=== PATIENT | female | born 1995 | race Caucasian/White ===

== ENCOUNTER 2018-03-10 20:21 | Emergency (ER) | payer MEDICAID, SELFPAY ==
[2018-03-10 20:22] VITALS: BP 95/51; PULSE 110; RESP 16; TEMP 36.7; O2SAT 97; BMI 18.1
[2018-03-10 22:13] LABS: Mucous, Urine 0 SEEN /hpf (<or=2+)
[2018-03-10 22:14] LABS: Color, Urine Yellow (Yellow); Glucose, Dipstick Normal (Normal); Ketone-Dipstick Negative (Negative); Leukocyte Esterase-Dipstick 500 /ul (Negative); Nitrite-Dipstick Positive (Negative); Occult Blood-Urine 25 /ul (Negative); Protein-Dipstick 30 mg/dl (Negative); Specific Gravity, Urine 1.015 (1.002-1.030); Urine Bilirubin Dipstick Negative (Negative); Urine Clarity Cloudy (Clear); Urine Urobilinogen 1 mg/dl (Normal)
[2018-03-10 22:25] LABS: Bacteria RARE /hpf (None Seen); Red Blood Cells-Urine 0-5 SEEN /hpf (0-5); Squamous Epithelial Cells - UA 5-10 SEEN /hpf (5-10); White Blood Cells 50-100 SEEN /hpf (0-5)
--- NOTE | 2018-03-10 22:52 | ED.VISSUMM ---
- ER Visit Summary Date of Service: 03/10/18 Chief Complaint: Flank pain History of Present Illness: The patient is a 22 F presents to the emergency department with symptoms of pyelonephritis. The patient is currently . She is at 18 weeks. She states over the past 2 days, she is intermittent pain in her right flank. She states when she gets kidney infections, she rarely has urinary symptoms, just will get pain in her kidney. She is no history of kidney stone. She denies any vaginal bleeding or discharge. She denies any recent sexual activity. She has had an uncomplicated thus far. Physical Examination: Vital signs reviewed General: Well-nourished, well-developed Head: Normocephalic, atraumatic Eyes: Pupils equal and reactive, extraocular muscles intact Neck, supple, no lymphadenopathy Heart: Regular rate and rhythm Respiratory: No distress, clear bilaterally Abdomen: Soft, nontender, nondistended, no peritoneal signs Back: Nontender Extremities: Nontender, no edema, no cords Skin: Normal color no rash Neuro: Alert and oriented, no focal or lateralizing deficits Test Results: [] Emergency Department Course and Treatment: The patient has no CVA tenderness. However, her urine does show evidence of infection. Culture was added. I did do a bedside ultrasound. There is single intrauterine . There is good activity. heart rate was in the 150s and reactive. There was no evidence of hydronephrosis on the right kidney. Patient has no fever. Her abdomen is benign. She has no reproducible tenderness. I do feel that she is safe for outpatient therapy. Given her , she will be started on Keflex. She is given her first dose here. I did add a urine culture. She will be discharged. I did risk reduction counselor her that if she gets fever, worsening pain, vomiting, or any change in symptoms she needs to return immediately. She is comfortable with this plan of care. Treatment Plan: [] Disposition: Discharge Impression: Pyelonephritis This note was generated with [employer] dictation software. It may contain incorrect words, spelling, and punctuation that were not noted in review of the chart prior to signing ED Disposition - Plan for ED Patient: Chief Complaint: Flank Pain Instructions: ED Kidney Infec Female Prescriptions: Cephalexin [Keflex] 500 mg PO Q8 #30 cap
[2018-03-10] MEDS: Cephalexin 250 MG Capsule 500 MG PO (23:23)
[2018-03-10 23:25] VITALS: BP 121/68; PULSE 67; RESP 18; O2SAT 99
== END 2018-03-10 23:26 | disposition home or self-care (01) ==
PROVIDERS: Emergency Provider Emergency Medicine
DX: O23.02 Infections of kidney in pregnancy, second trimester (principal); Z3A.18 18 weeks gestation of pregnancy
CPT/HCPCS: 81001; 87077; 87086; 87088; 87186; 99283

== ENCOUNTER 2018-04-01 02:30 | Observation (INO) | payer MEDICAID, SELFPAY ==
[2018-04-01] VITALS (8 sets, daily range): BP systolic 111–120; BP diastolic 58–75; PULSE 106–128; RESP 16–20; TEMP 36.8–37.3; O2SAT 98–100; BMI 18.8; BMI 18.3; BMI 18.4
--- NOTE | 2018-04-01 02:49 | ED.VIS.GEN ---
History of Present Illness Chief Complaint: Flank Pain Informant: Patient Onset: Days - 2 Context: Sudden Onset Timing: Intermittent - now persistent and colicky x 4 hrs or so Quality: achy Location: right low back Current Severity: Moderate Maximum Severity: Moderate Worsened by: deep breath Relieved by: nothing Associated Symptoms: n/v. subj fevers earlier. no abd pain. no vaginal sx or bleeding. Narrative: Similar symptoms to prior bouts of pyelonephritis. This includes lack of any urinary symptoms. She currently is 21 weeks and has had an uncomplicated so far. Recently was here and treated as an outpatient for pyelonephritis, she finished the 10 day course of cephalexin 1-2 weeks ago, followed up with her OB less than 1 week ago at [facility], and advised that they will be watching her very closely and possibly placing her on daily antibiotics until her delivery, although she is not on any more yet. Past Medical History - Allergies and Home Meds Allergies/Adverse Reactions: Allergies No Known Allergies Allergy (Verified 04/01/18 02:33) Smoking Status: Current every day smoker Review of Systems All systems negative except as indicated General: Reports: Fever, Malaise, Subjective Cardiovascular: Denies: Chest pain Respiratory: Denies: Dyspnea, Cough Gastrointestinal: Reports: Nausea, Vomiting. Denies: Abdominal pain, Diarrhea, Melena, Hematochezia Genitourinary: Denies: Dysuria, Hematuria, Frequency Musculoskeletal: Reports: Back pain. Denies: Neck pain, Swelling, Extremity Pain Skin: Denies: Rash Physical Exam Vital Signs/Narrative: Vital Signs Temp Pulse Resp BP Pulse Ox 04/01/18 02:30 98.6 F 128 H 20 H 120/75 98 Inital Vital Signs reviewed: Yes General: Well nourished, Well developed Head: Normocephalic, Atraumatic Eyes: Perrl, EOMI ENT: Moist mucous membranes, No rhinorrhea Neck: Supple, Nontender Cardiovascular: Regular rate, Regular rhythm, No murmurs, Tachycardia Respiratory: No distress, CTA bilaterally, Chest nontender Abdomen: Soft, Nontender, Normal bowel sounds, - - gravid uterus just above umbilicus Back: Normal Inspection, CVA tenderness - right only Extremities: Nontender, No edema Skin: Normal color, No rash Neurological: Alert, Oriented x3, Cranial nerves II-XII grossly intact, Normal Strength, Normal Sensation, Normal Gait Psychological: Normal affect Diagnostic/Tx/Re-eval Laboratory Results 04/01/18 04/01/18 04/01/18 Range/Units 02:36 02:36 03:04 WBC 12.9 H (4.4-11.0) K/mm3 RBC 3.62 L (4.2-5.4) M/mm3 Hgb 11.8 L (12.0-15.0) g/dl Hct 34.2 L (37-47) % MCV 94.5 (81-99) fL MCH 32.6 H (27.0-32.0) pg MCHC 34.5 (32-36) g/gl RDW 12.5 (11.6-14.6) % RDW Differential 41.8 (35.1-43.9) fl Plt Count 242 (150-450) K/mm3 MPV 9.7 (6.2-12.0) fl Immature Gran % (Auto) 0.400 (0.0-0.9) % Neut % (Auto) 81.3 H (47-70) % Lymph % (Auto) 12.4 L (19-41) % [place] % (Auto) 5.7 (0-10) % Eos % (Auto) 0.1 (0-5) % Baso % (Auto) 0.1 (0-1) % Absolute Neuts (auto) 10.5 H (2.0-7.7) X10^3/uL Absolute Lymphs (auto) 1.60 (0.83-4.51) X10^3/ul Total Counted Not Reportable Sodium 138 (136-145) mmol/L Potassium 3.6 (3.5-5.1) mmol/L Chloride 104 (98-107) mmol/L Carbon Dioxide 24.0 (21.0-32.0) mmol/L Anion Gap 10 (5-15) BUN 3 L (7-18) mg/dL Creatinine 0.48 L (0.55-1.02) mg/dL Estim Creat Clear Calc 147.27 ml/min Est GFR (MDRD) Af Amer 209 (>60) mL/min Est GFR (MDRD) Non-Af 172 (>60) mL/min BUN/Creatinine Ratio 6.2 L (10-20) RATIO Glucose 104 (74-106) mg/dL Calcium 9.3 (8.5-10.1) mg/dL Urine Color Yellow (Yellow) Urine Clarity Cloudy (Clear) Urine pH 6.5 (5.0 - 8.0) Ur Specific [place] 1.015 (1.002-1.030) Urine Protein 100 H (Negative) mg/dl Urine Glucose (UA) Normal (Normal) mg/dl Urine Ketones Negative (Negative) mg/dl Urine Occult Blood 50 H (Negative) /ul Urine Nitrite Positive H (Negative) Urine Bilirubin Negative (Negative) mg/dL Urine Urobilinogen Normal (Normal) mg/dl Ur Leukocyte Esterase 500 H (Negative) /ul - Medical Decision Making Patient was given morphine 2 mg and felt better, remained stable. I performed a bedside ultrasound since in the middle of the night, there is no target aircraft technician available in the hospital. There is good movement and heart tones were in the 160s. There appeared to be some mild to moderate hydronephrosis on the right when compared with the normal-appearing kidney on the left. There is no fluid in Morison's pouch. Her urine does appear infected with leukocyte esterase, nitrite, and pyuria. This was sent for culture and she was started on Rocephin. She states that with her prior episodes of pyelonephritis, she had gradual onset of pain, although this was relatively sudden and severe. Not able to rule out the possibility of an obstructive uropathy, however she does not need CT or emergency official ultrasound at this time since her kidney function is good and normal, she is not septic, and has nothing that would require surgery at this time. Discussed with Dr. Vasquez who is agreeable with admission and request that we add gentamicin 5 mg/kg. ED Disposition - Plan for ED Patient: Disposition: Acute Care Hospital [facility] Chief Complaint: Flank Pain Diagnosis: Pyelonephritis affecting in second trimester
[2018-04-01 02:56] LABS: Absolute Neutrophil Count 10.5 X10^3/uL (2.0-7.7); Basophil# 0.01 X10^3/uL; Basophil% 0.1 % (0-1); Eosinophil# 0.01 X10^3/uL; Eosinophils% 0.1 % (0-5); Hematocrit 34.2 % (37-47); Hemoglobin 11.8 g/dl (12.0-15.0); Lymphocyte % 12.4 % (19-41); Mean Corp Hgb Conc 34.5 g/gl (32-36); Mean Corpuscular Hgb 32.6 pg (27.0-32.0); Mean Corpuscular Volume 94.5 fL (81-99); Mean Platelet Vol. 9.7 fl (6.2-12.0); Monocyte# 0.74 X10^3/uL; Monocyte% 5.7 % (0-10); Neutrophil # 10.48 X10^3/uL (2.7-7.7); Neutrophil % 81.3 % (47-70); Platelet Count 242 K/mm3 (150-450); RBC Distribution Width CV 12.5 % (11.6-14.6); RBC Distribution Width SD 41.8 fl (35.1-43.9); Red Blood Count 3.62 M/mm3 (4.2-5.4); White Blood Count 12.9 K/mm3 (4.4-11.0)
--- NOTE | 2018-04-01 02:56 | ED.DCSUM_ITS ---
History of Present Illness Chief Complaint: Flank Pain Informant: Patient Onset: Days - 2 Context: Sudden Onset Timing: Intermittent - now persistent and colicky x 4 hrs or so Quality: achy Location: right low back Current Severity: Moderate Maximum Severity: Moderate Worsened by: deep breath Relieved by: nothing Associated Symptoms: n/v. subj fevers earlier. no abd pain. no vaginal sx or bleeding. Narrative: Similar symptoms to prior bouts of pyelonephritis. This includes lack of any urinary symptoms. She currently is 21 weeks and has had an uncomplicated so far. Recently was here and treated as an outpatient for pyelonephritis, she finished the 10 day course of cephalexin 1-2 weeks ago, followed up with her OB less than 1 week ago at [facility], and advised that they will be watching her very closely and possibly placing her on daily antibiotics until her delivery, although she is not on any more yet. Past Medical History - Allergies and Home Meds Allergies/Adverse Reactions: Allergies No Known Allergies Allergy (Verified 04/01/18 02:33) Smoking Status: Current every day smoker Review of Systems All systems negative except as indicated General: Reports: Fever, Malaise, Subjective Cardiovascular: Denies: Chest pain Respiratory: Denies: Dyspnea, Cough Gastrointestinal: Reports: Nausea, Vomiting. Denies: Abdominal pain, Diarrhea, Melena, Hematochezia Genitourinary: Denies: Dysuria, Hematuria, Frequency Musculoskeletal: Reports: Back pain. Denies: Neck pain, Swelling, Extremity Pain Skin: Denies: Rash Physical Exam Vital Signs/Narrative: Vital Signs Temp Pulse Resp BP Pulse Ox 04/01/18 02:30 98.6 F 128 H 20 H 120/75 98 Inital Vital Signs reviewed: Yes General: Well nourished, Well developed Head: Normocephalic, Atraumatic Eyes: Perrl, EOMI ENT: Moist mucous membranes, No rhinorrhea Neck: Supple, Nontender Cardiovascular: Regular rate, Regular rhythm, No murmurs, Tachycardia Respiratory: No distress, CTA bilaterally, Chest nontender Abdomen: Soft, Nontender, Normal bowel sounds, - - gravid uterus just above umbilicus Back: Normal Inspection, CVA tenderness - right only Extremities: Nontender, No edema Skin: Normal color, No rash Neurological: Alert, Oriented x3, Cranial nerves II-XII grossly intact, Normal Strength, Normal Sensation, Normal Gait Psychological: Normal affect Diagnostic/Tx/Re-eval Laboratory Results 04/01/18 04/01/18 04/01/18 Range/Units 02:36 02:36 03:04 WBC 12.9 H (4.4-11.0) K/mm3 RBC 3.62 L (4.2-5.4) M/mm3 Hgb 11.8 L (12.0-15.0) g/dl Hct 34.2 L (37-47) % MCV 94.5 (81-99) fL MCH 32.6 H (27.0-32.0) pg MCHC 34.5 (32-36) g/gl RDW 12.5 (11.6-14.6) % RDW Differential 41.8 (35.1-43.9) fl Plt Count 242 (150-450) K/mm3 MPV 9.7 (6.2-12.0) fl Immature Gran % (Auto) 0.400 (0.0-0.9) % Neut % (Auto) 81.3 H (47-70) % Lymph % (Auto) 12.4 L (19-41) % [place] % (Auto) 5.7 (0-10) % Eos % (Auto) 0.1 (0-5) % Baso % (Auto) 0.1 (0-1) % Absolute Neuts (auto) 10.5 H (2.0-7.7) X10^3/uL Absolute Lymphs (auto) 1.60 (0.83-4.51) X10^3/ul Total Counted Not Reportable Sodium 138 (136-145) mmol/L Potassium 3.6 (3.5-5.1) mmol/L Chloride 104 (98-107) mmol/L Carbon Dioxide 24.0 (21.0-32.0) mmol/L Anion Gap 10 (5-15) BUN 3 L (7-18) mg/dL Creatinine 0.48 L (0.55-1.02) mg/dL Estim Creat Clear Calc 147.27 ml/min Est GFR (MDRD) Af Amer 209 (>60) mL/min Est GFR (MDRD) Non-Af 172 (>60) mL/min BUN/Creatinine Ratio 6.2 L (10-20) RATIO Glucose 104 (74-106) mg/dL Calcium 9.3 (8.5-10.1) mg/dL Urine Color Yellow (Yellow) Urine Clarity Cloudy (Clear) Urine pH 6.5 (5.0 - 8.0) Ur Specific [place] 1.015 (1.002-1.030) Urine Protein 100 H (Negative) mg/dl Urine Glucose (UA) Normal (Normal) mg/dl Urine Ketones Negative (Negative) mg/dl Urine Occult Blood 50 H (Negative) /ul Urine Nitrite Positive H (Negative) Urine Bilirubin Negative (Negative) mg/dL Urine Urobilinogen Normal (Normal) mg/dl Ur Leukocyte Esterase 500 H (Negative) /ul - Medical Decision Making Patient was given morphine 2 mg and felt better, remained stable. I performed a bedside ultrasound since in the middle of the night, there is no ink technician available in the hospital. There is good movement and heart tones were in the 160s. There appeared to be some mild to moderate hydronephrosis on the right when compared with the normal-appearing kidney on the left. There is no fluid in Morison's pouch. Her urine does appear infected with leukocyte esterase, nitrite, and pyuria. This was sent for culture and she was started on Rocephin. She states that with her prior episodes of pyelonephritis, she had gradual onset of pain, although this was relatively sudden and severe. Not able to rule out the possibility of an obstructive uropathy, however she does not need CT or emergency official ultrasound at this time since her kidney function is good and normal, she is not septic, and has nothing that would require surgery at this time. Discussed with Dr. Vasquez who is agreeable with admission and request that we add gentamicin 5 mg/kg. ED Disposition - Plan for ED Patient: Disposition: Acute Care Hospital [facility] Chief Complaint: Flank Pain Diagnosis: Pyelonephritis affecting in second trimester
[2018-04-01] MEDS: Morphine 2 MG/ML Syringe IV (03:00)
[2018-04-01 03:07] LABS: Mucous, Urine 0 SEEN /hpf (<or=2+)
[2018-04-01 03:11] LABS: POSITIVE COUNT NO; POSITIVE DIFFERENTIAL NO; POSITIVE MORPHOLOGY NO
[2018-04-01 03:13] LABS: Color, Urine Yellow (Yellow); Glucose, Dipstick Normal (Normal); Ketone-Dipstick Negative (Negative); Leukocyte Esterase-Dipstick 500 /ul (Negative); Nitrite-Dipstick Positive (Negative); Occult Blood-Urine 50 /ul (Negative); Protein-Dipstick 100 mg/dl (Negative); Specific Gravity, Urine 1.015 (1.002-1.030); Urine Bilirubin Dipstick Negative (Negative); Urine Clarity Cloudy (Clear); Urine Urobilinogen Normal (Normal); Urine pH 6.5 (5.0 - 8.0)
[2018-04-01 03:13] LABS: Anion Gap 10 (5-15); BUN 3 mg/dL (7-18); BUN/Creat Ratio 6.2 RATIO (10-20); Calcium,Total 9.3 mg/dL (8.5-10.1); Chloride 104 mmol/L (98-107); Creatinine, Serum 0.48 mg/dL (0.55-1.02); EST Glomerular Filtration Rate 172 mL/min (>60); Est Glom Filt Rate - Afr Amer 209 mL/min (>60); Estimated Creatinine Clearance 147.27 ml/min; Glucose 104 mg/dL (74-106); Potassium 3.6 mmol/L (3.5-5.1); Sodium Level 138 mmol/L (136-145)
[2018-04-01 03:30] LABS: Bacteria 3+ /hpf (None Seen)
[2018-04-01 03:31] LABS: Red Blood Cells-Urine 0-5 SEEN /hpf (0-5); Squamous Epithelial Cells - UA 0-5 SEEN /hpf (5-10); White Blood Cells 50-100 SEEN /hpf (0-5)
[2018-04-01] MEDS: Ceftriaxone 1 GM/50 ML BAG IV (03:41)
--- NOTE | 2018-04-01 08:33 | PCM.HP.OB ---
History Date of Admission: 04/01/18 Gestational age: 21.2 History of this : Patient presented to ED with worsening right flank pain. Pain started 2 days & was intermittent at first Allergies No Known Allergies Allergy (Verified 04/01/18 02:33) Home Medications: Home Medications Cephalexin [Keflex] 500 mg PO Q8H 04/01/18 Vit No.130/Iron/FA [ Vitamins] 1 each PO DAILY 04/01/18 Smoking Status: Former smoker Alcohol: None Substance Use Type: Methamphetamine - in the past Heart Tracin's on US in the ED History Past Pregnancies: Past Pregnancies Delivery Date Name GA/Weeks Outcome Route Weight Infant Gender Labor Length Anesthesia Delivery Location Provider FOB Labs: pyelonephritis earlier in . positive ecoli urine culture. Review of Systems Constitutional: Reports: Chills - at home before admission, Fever Cardiovascular: Reports: - - negative Respiratory: Reports: Shortness of Breath - in ED last night, has now resolved Gastrointestinal: Reports: Nausea - has resolved Genitourinary: Reports: - - denies Gynecological: Reports: - - denies VB/LOF/ctxs Physical Exam Vitals: Vital Signs Temp Pulse Resp BP Pulse Ox 98.4 F 106 H 18 113/73 99 04/01/18 04:15 04/01/18 04:15 04/01/18 04:15 04/01/18 04:15 04/01/18 04:15 General: Alert, Oriented x3 Abdomen: Soft, Non Tender, Non-Distended, Gravid, - - positive right flank tenderness Extremities:: No tenderness/swelling Neurological: Cranial nerves II-XII grossly intact Assessment/Plan All Active Problems Pyelonephritis affecting in second trimester (Acute) 22yo female @ 21&2 with pyelonephritis Admit for observation. ID - Patient received gentamycin & rocephin. Prior urine culture sensitivities reviewed. Will need oral antibiotics the remained of . Patient had not started macrobid that was prescribed on Wednesday. GI - regular diet, nausea has resolved. FWB - fhts daily. Routine care.
[2018-04-01] MEDS: 0.9% Normal Saline 1,000 ML 75 ML IV ×2 (09:04→21:23)
[2018-04-01] MEDS: oxyCODONE 5 MG Tablet PO ×3 (09:32→22:24)
--- NOTE | 2018-04-01 10:52 | NURSING ---
FHT 165/MINUTE PER [facility] N[facility]SE KAYY CUEVAS.
[2018-04-01] MEDS: 0.9% NaCl Peripheral Flush Adult/Peds IV (14:44)
[2018-04-02] MEDS: Ceftriaxone 1 GM/50 ML BAG IV (01:16)
--- NOTE | 2018-04-02 02:48 | NURSING ---
FHR 130 at 0240.
[2018-04-02 04:21] VITALS: BP 95/56; PULSE 119; RESP 16; TEMP 37.5; O2SAT 98
[2018-04-02 04:27] VITALS: PULSE 118
[2018-04-02] MEDS: Acetaminophen 500 MG Tablet PO (04:34)
[2018-04-02] MEDS: oxyCODONE 5 MG Tablet PO (04:35)
--- NOTE | 2018-04-02 06:43 | DCINST_ITS ---
- Discharge Diagnoses Current Active Problems: Current Active and Chronic Problems (Last Updated 04/01/18 @ 08:33 by Vince Vasquez) Pyelonephritis affecting in second trimester (Acute) You will use the following diet at home:: No restrictions Your food should be the consistency of: Regular Your liquids should be the consistency of: Regular/Thin Discharge Activity: Return to Normal Activity Return to work on:: 04/04/18 May shower in (days): 0 May resume sexual activity in: No Restrictions Call your doctor if you observe: Fever of 101 or Higher, Inability to urinate, Uncontrolled pain Additional Instructions: Call if any vaginal bleeding or leaking of fluid or more than 6 contractions in an hour. Allergies/Adverse Reactions: Allergies No Known Allergies Allergy (Verified 04/01/18 02:33) Medications to take at Discharge Cephalexin [Keflex] 500 mg PO Q8H 04/01/18 Vit No.130/Iron/FA [ Tablet] 1 each PO DAILY 04/01/18 Primary Care Physician: Care Physician,No Primary [Primary Care Provider] - Test Results: Test results from this visit will be discussed in further detail at your follow- up appointment, if applicable. Please Follow Up With: Lay Cooper MD - [phone] When: Dr. Cooper's office in 1-2 weeks or as needed
[2018-04-02 07:02] VITALS: TEMP 36.4
[2018-04-02 08:01] LABS: Hematocrit 27.8 % (37-47); Hemoglobin 9.3 g/dl (12.0-15.0); Mean Corp Hgb Conc 33.5 g/gl (32-36); Mean Corpuscular Hgb 32.1 pg (27.0-32.0); Mean Corpuscular Volume 95.9 fL (81-99); Mean Platelet Vol. 9.5 fl (6.2-12.0); Platelet Count 187 K/mm3 (150-450); RBC Distribution Width CV 12.5 % (11.6-14.6); RBC Distribution Width SD 42.3 fl (35.1-43.9); White Blood Count 9.3 K/mm3 (4.4-11.0)
[2018-04-02 08:04] LABS: Scan Indicated on CBC? Y/N NO
[2018-04-02 09:40] VITALS: BP 93/53; PULSE 86; RESP 18; TEMP 36.8; O2SAT 98
--- NOTE | 2018-04-02 11:07 | PCM.PN.OB ---
Patient Problems: Active and Suspected Problems (Last Updated 04/01/18 @ 08:33 by Vince Vasquez) Pyelonephritis affecting in second trimester (Acute) Subjective: Doing well per patient and nursing staff. Ambulating and taking PO without difficulty. Pain resolved and no difficulty with urination. Denies any further nausea. Feeling movement. Planning D/C home today. Objective: FHT 140 via doppler - Physical Exam General: Alert, Oriented x3, Cooperative Lungs: Clear to auscultation, Normal air movement, No rhonchi, No wheeze Cardiovascular: Regular rate, Regular Rhythm, No murmurs Abdomen: Bowel Sounds Present, Soft, Non Tender, - - CVAT Extremities: No edema Psych/Mental Status: Normal Affect, Appropriate Vital Signs Temp Pulse Resp BP Pulse Ox 98.2 F 86 18 93/53 L 98 04/02/18 09:40 04/02/18 09:40 04/02/18 09:40 04/02/18 09:40 04/02/18 09:40 Oxygen Delivery Method Room Air Weight: 106 lb 14.787 oz Body Mass Index (BMI) 18.3 Intake and Output for Last 24 Hours 03/31/18 04/01/18 04/02/18 23:59 23:59 23:59 Intake Total 2966 / 2966 1620 / 1620 Output Total 1200 / 1200 1999 / 1999 Balance 1766 / 1766 -380 / -380 Laboratory Tests Past 24 Hrs 04/02/18 07:40 WBC 9.3 RBC 2.90 L Hgb 9.3 L Hct 27.8 L MCV 95.9 MCH 32.1 H MCHC 33.5 RDW 12.5 RDW Differential 42.3 Plt Count 187 MPV 9.5 Medical Necessity - Tobacco Use Smoking Status: Former smoker Assessment/Plan All Active Problems (Last Updated 04/01/18 @ 08:33 by Vince Vasquez) Pyelonephritis affecting in second trimester (Acute) A: Acute pyelonephritis affecting 23 year old at 20w2d EGA P: 1) D/C home today. 2) eRx sent to pharmacy for Keflex 500mg PO QID x 14 days. Will see patient outpatient for follow up visit in 2 weeks and start prophylactic antibiotics at that time. 3) Hemoglobin 9.3 down from 11.2. Will start Ferrous Sulfate 325mg PO once daily and increase to BID if tolerated. 4) Follow up in 1-2 weeks.
--- NOTE | 2018-04-02 11:19 | NURSING ---
FHR obtained in mid/right lower quadrant at 140 bpm. Angelo MEDEIROSM on unit and made aware of fhr.
== END 2018-04-02 12:22 | disposition home or self-care (01) ==
LOC: ED 03:32 → MS3 03:54
PROVIDERS: Obstetrics & Gynecology; Admitting Provider Obstetrics & Gynecology; Emergency Provider Emergency Medicine; Visit Provider Obstetrics & Gynecology
DX: O23.02 Infections of kidney in pregnancy, second trimester (principal); Z3A.21 21 weeks gestation of pregnancy; Z87.891 Personal history of nicotine dependence; N10 Acute pyelonephritis
CPT/HCPCS: 80048; 81001; 85025; 85027; 87077; 87086; 87088; 87186; 96361; 96365; 96366; 96367; 96375; 99218; 99282; 99406; J7030; A4216; G0378

== ENCOUNTER 2018-07-18 14:50 | Outpatient (CLI) | payer MEDICAID, SELFPAY ==
[2018-07-18 15:16] VITALS: BMI 25.3
--- NOTE | 2018-08-03 16:31 | OB.TRI.NOTE ---
- Problem List (1) Cramping affecting , antepartum Status: Acute History of Present Illness Date of Service: 07/18/18 Was patient seen by the physician?: No Reason For Visit: R/O LABOR Date of Service: 07/18/18 History of Present Illness: at 36w5d and presents to L&D for cramping. Allergies No Known Allergies Allergy (Verified 04/01/18 02:33) - Pertinent Past Medical History Medical History: Past Medical History (Last Updated 04/01/18 @ 08:33 by Vince Vasquez) Pyelonephritis affecting NST - FHR Rate Baby A Baseline: 145 Variability:: Moderate Accelerations:: 15 x 15 Decelerations:: None NST Reactive:: Yes Uterine Activity:: Irregular Impression/Plan A:False Labor P: 1).D/C Home
== END 2018-07-18 16:25 | disposition home or self-care (01) ==
LOC: WPOUT 14:57 → WP 14:58
PROVIDERS: Referring Provider Advanced Practice Midwife; Visit Provider Advanced Practice Midwife
DX: O47.03 False labor before 37 completed weeks of gestation, third trimester (principal); Z3A.36 36 weeks gestation of pregnancy
CPT/HCPCS: 59025; 59050; 99218; G0378

== ENCOUNTER 2018-08-04 02:35 | Outpatient (CLI) | payer MEDICAID, SELFPAY ==
[2018-08-04 03:55] LABS: Mucous, Urine 0 SEEN /hpf (<or=2+); Red Blood Cells-Urine 0 SEEN /hpf (0-5)
[2018-08-04 04:00] LABS: Absolute Lymphocyte Count 2.05 X10^3/ul (0.83-4.51); Absolute Neutrophil Count 5.2 X10^3/uL (2.0-7.7); Color, Urine Yellow (Yellow); Eosinophil# 0.02 X10^3/uL; Eosinophils% 0.3 % (0-5); Glucose, Dipstick Normal (Normal); Hematocrit 37.6 % (37-47); Hemoglobin 12.5 g/dl (12.0-15.0); Ketone-Dipstick 50 mg/dl (Negative); Leukocyte Esterase-Dipstick 25 /ul (Negative); Lymphocyte # 2.05 X10^3/ul (4.0); Lymphocyte % 26.2 % (19-41); Mean Corp Hgb Conc 33.2 g/gl (32-36); Mean Corpuscular Hgb 30.9 pg (27.0-32.0); Mean Corpuscular Volume 93.1 fL (81-99); Mean Platelet Vol. 9.6 fl (6.2-12.0); Monocyte% 6.4 % (0-10); Neutrophil # 5.23 X10^3/uL (2.7-7.7); Neutrophil % 66.7 % (47-70); Nitrite-Dipstick Negative (Negative); Occult Blood-Urine Negative /ul (Negative); Platelet Count 216 K/mm3 (150-450); Protein-Dipstick 15 mg/dl (Negative); RBC Distribution Width CV 13.5 % (11.6-14.6); RBC Distribution Width SD 45.7 fl (35.1-43.9); Red Blood Count 4.04 M/mm3 (4.2-5.4); Specific Gravity, Urine 1.015 (1.002-1.030); Urine Bilirubin Dipstick Negative (Negative); Urine Clarity Clear (Clear); Urine Urobilinogen Normal (Normal); White Blood Count 7.8 K/mm3 (4.4-11.0)
[2018-08-04 04:01] LABS: POSITIVE COUNT NO; POSITIVE DIFFERENTIAL NO; POSITIVE MORPHOLOGY NO
[2018-08-04 04:05] VITALS: BMI 25.8
[2018-08-04 04:10] LABS: Bacteria 1+ /hpf (None Seen); Squamous Epithelial Cells - UA 0-5 SEEN /hpf (5-10); White Blood Cells 0-5 SEEN /hpf (0-5)
[2018-08-04 04:24] LABS: Amphetamine Urine VISTA NEGATIVE (<1000 ng/mL); Barbiturate Urine VISTA NEGATIVE (< 200 ng/mL); Benzodiazepine Urine VISTA NEGATIVE (< 200 ng/mL); Cocaine Urine VISTA NEGATIVE (< 300 ng/mL); Ecstacy Urine VISTA NEGATIVE (< 500 ng/mL); Methadone Urine VISTA NEGATIVE (< 300 ng/mL); PCP Urine VISTA NEGATIVE (< 25 ng/mL); THC Urine VISTA NEGATIVE (< 50 ng/mL); Vista UDS pH Range 6
--- NOTE | 2018-08-05 09:03 | PCM.PN.OB ---
- Physical Exam Weight: 146 lb Body Mass Index (BMI) 25.8 Medical Necessity - Tobacco Use Smoking Status: Former smoker Assessment/Plan All Active Problems (Last Updated 04/01/18 @ 08:33 by Vince Vasquez) Pyelonephritis affecting in second trimester (Acute) Cramping affecting , antepartum (Acute)
--- NOTE | 2018-08-05 09:11 | OB.TRI.HP_ITS ---
History of Present Illness Date of Service: 08/04/18 Was patient seen by the physician?: No Reason For Visit: R/O LABOR Date of Service: 08/04/18 Final SAUL: 08/10/18 Gestational age: 39 Weeks and 2 Days History of Present Illness: Presented to L&D with complaint of contractions that started in the evening. Denies any urinary complaints. Having back pain and lower abdominal pain. Denies any vaginal bleeding, leakage of fluid, headache, or SOB. Allergies No Known Allergies Allergy (Verified 08/04/18 04:06) - Pertinent Past Medical History Medical History: Past Medical History (Last Updated 04/01/18 @ 08:33 by Vince Vasquez) Pyelonephritis affecting Laboratory Studies: Laboratory Tests 08/04/18 08/04/18 08/04/18 Range/Units 03:45 03:45 03:45 WBC 7.8 (4.4-11.0) K/mm3 RBC 4.04 L (4.2-5.4) M/mm3 Hgb 12.5 (12.0-15.0) g/dl Hct 37.6 (37-47) % MCV 93.1 (81-99) fL MCH 30.9 (27.0-32.0) pg MCHC 33.2 (32-36) g/gl RDW 13.5 (11.6-14.6) % RDW Differential 45.7 H (35.1-43.9) fl Plt Count 216 (150-450) K/mm3 MPV 9.6 (6.2-12.0) fl Immature Gran % (Auto) 0.400 (0.0-0.9) % Neut % (Auto) 66.7 (47-70) % Lymph % (Auto) 26.2 (19-41) % [place] % (Auto) 6.4 (0-10) % Eos % (Auto) 0.3 (0-5) % Baso % (Auto) 0.0 (0-1) % Absolute Neuts (auto) 5.2 (2.0-7.7) X10^3/uL Absolute Lymphs (auto) 2.05 (0.83-4.51) X10^3/ul Total Counted Not Reportable Urine Color Yellow (Yellow) Urine Clarity Clear (Clear) Urine pH 6.0 (5.0 - 8.0) Ur Specific [place] 1.015 (1.002-1.030) Urine Protein 15 H (Negative) mg/dl Urine Glucose (UA) Normal (Normal) mg/dl Urine Ketones 50 H (Negative) mg/dl Urine Occult Blood Negative (Negative) /ul Urine Nitrite Negative (Negative) Urine Bilirubin Negative (Negative) mg/dL Urine Urobilinogen Normal (Normal) mg/dl Ur Leukocyte Esterase 25 H (Negative) /ul Urine RBC 0 SEEN (0-5) /hpf Urine WBC 0-5 SEEN (0-5) /hpf Ur Squamous Epith Cells 0-5 SEEN (5-10) /hpf Urine Bacteria 1+ (None Seen) /hpf Urine Mucus 0 SEEN (<or=2+) /hpf Urine Opiates Screen NEGATIVE (< 300 ng/mL) Urine Methadone Screen NEGATIVE (< 300 ng/mL) Ur Barbiturates Screen NEGATIVE (< 200 ng/mL) Ur Phencyclidine Scrn NEGATIVE (< 25 ng/mL) Ur Amphetamines Screen NEGATIVE (<1000 ng/mL) U Methamphetamin-MDMA NEGATIVE (< 500 ng/mL) U Benzodiazepines Scrn NEGATIVE (< 200 ng/mL) Urine Cocaine Screen NEGATIVE (< 300 ng/mL) U Cannabinoids Screen NEGATIVE (< 50 ng/mL) Ur Drug Screen Comment NST - FHR Rate Baby A Baseline: 150 Variability:: Moderate Accelerations:: 15 x 15 Decelerations:: None NST Reactive:: Yes Uterine Activity:: Irregular Impression/Plan A: False Labor P: 1) consulted to review strip due to prolonged accelerations, ok to D/C home 2) Urine culture and tox screen done 3) CBC normal 4) 1 liter LR give 5) D/C home.
--- OUTSIDE RECORDS SUMMARY | 2018-09-29 05:24 | XMS RPT_ITS ---
:1995 Author Organization OHIP Care Team Providers Name Role Phone OLIVA NORTON (NIRAV) Attending Unavailable OLIVA NORTON (NIRAV) Attending Unavailable UMM VERONICA Attending Unavailable OLIVA NORTON (NIRAV) Referring Unavailable OLIVA NORTON (CNM) Referring Unavailable KAYLA DUDLEY (CNM) Attending Unavailable OLIVA NORTON (CNM) Referring Unavailable NECHELSEYT LUCIANO, SOL Attending Unavailable OLIVA NORTON (CNM) Referring Unavailable UMM VERONICA Attending Unavailable OLIVA NORTON (CNM) Referring Unavailable NEYMELISSAT WOLF, SOL Attending Unavailable KAYLA DUDLEY (CNM) Attending Unavailable REMI DUDLEYTHIA (CNM) Referring Unavailable OLIVA NORTON (CNM) Attending Unavailable NEYMELISSAT WOLF, SOL Attending Unavailable TRACI FUENTES Attending Unavailable NEYMELISSAT WOLF, SOL Attending Unavailable TRACI FUENTES Attending Unavailable LUIS ENRIQUEKAYLA HAQUE (CNM) Attending Unavailable LUIS ENRIQUE, KAYLA (CNM) Attending Unavailable LUIS ENRIQUEREMI HAQUETHIA (CNM) Referring Unavailable Jeremy Henson Attending Unavailable Primay Care Physicia, No Primary Care Unavailable Primay Care Physicia, No Primary Care Unavailable Lola Fish Admitting Unavailable Lola Fish Attending Unavailable Oliva Norton Attending Unavailable Oliva Norton Referring Unavailable Primay Care Physicia, No Primary Care Unavailable Lianet Guzman Attending Unavailable Primay Care Physicia, No Primary Care Unavailable Lola Fish Attending Unavailable Lola Fish Referring Unavailable Primay Care Physicia, No Primary Care Unavailable Lola Fish Attending Unavailable Pedro Karelmer Referring Unavailable Primay Care Physicia, No Primary Care Unavailable Lola Fish Admitting Unavailable PROBLEMS PROBLEMS DATE TYPE CONDITION / CODE ATTENDING STATUS SOURCE 05/10/2018 Active 26 weeks gestation NA Active [facility] of / [facility] Z3A.26(ICD-10) Repository 01/04/2018 Active Drug abuse NA Active [facility] counseling and [facility] surveillance of Repository drug abuser / Z71.51(ICD-10) 01/04/2018 Active Supervision of NA Active [facility] high risk [facility] , Repository unspecified, first trimester / O09.91(ICD-10) 01/27/2018 Active 12 weeks gestation OLIVA NORTON Active [facility] of / ([facility]) [facility] Z3A.12(ICD-10) Repository 01/27/2018 Active Encounter for OLIVA NORTON Active [facility] supervision of ([facility]) [facility] other normal Repository , first trimester / Z34.81(ICD-10) PROCEDURES PROCEDURES No Procedure Records FoundRESULTS RESULTS PROGRESS Observed: 08/16/2018 Status: COMPLETED Source: [place] 3:16 PM [facility] [place] REPOSITORY HNO ID: [id number] Author: Leigh Wright LPN Service: (none) Author Type: (none) Type: Progress Notes Filed: 08/16/2018 3:17 PM Note Text: Pt delivered via at [facility] on 08/15/[address] Fish. See OB Outcome Note. Leigh Wright LPN DISCHARGE INSTRUCTION Observed: 08/16/2018 Status: F Source: [place] 7:57 AM [facility] [place] [facility] Medical Records Department [address] [place] [address] Instructions for Home/Discharge Instructions 08/16/18 0756 MR#: [id number] Acct: [id number] Name: KERON JACKSON Rep #: [id number] : 1995 22 From: Lola Fish PCP: Care Physician, No Primary Status: ADM IN Discharge Diet: No Restrictions Discharge Activity: May Drive, May Shower May resume sexual activity in: 4-6 weeks Weight Bearing Status: Weight bearing as tolerated Additional Instructions: If you experience any of the following, contact your healthcare provider. * Bleeding that soaks a pad every hour for 2 hours * Fever 100.4 or higher * Unrelieved incision or abdominal pain * Swelling, redness, discharge or bleeding from your incision or episiotomy site * Your incision begins to separate * Problems urinating (including inability to urinate or burning while urinating). * Visual changes * Severe headache * Flu-like symptoms * Pain or redness in one of both of your breasts * Pain, warmth, tenderness or swelling in your legs, especially the calf area * Frequent nausea and vomiting * Symptoms of depression or anxiety If you experience any of the following, call 911 or go to the nearest Emergency Room. * Chest pain * Problems breathing * Seizure activity * Partial or complete paralysis of a body part, slurred speech, weakness or drooping of the face, or a sudden inability to walk or hold your balance Allergies/Adverse Reactions: Allergies No Known Allergies Allergy (Verified 08/12/18 12:19) Medications to take at Discharge Vit No.130/Iron/Folic [ Tablet] 1 each PO DAILY 04/01/18 Primary Care Physician: Care Physician,No Primary [Primary Care Provider] - Test Results: Test results from this visit will be discussed in further detail at your follow-up appointment, if applicable. 08/16/18 0757 <Electronically signed by Lola Fish > Date Lola Fish CC: No Primary Care Physician HOSP Observed: 08/16/2018 Status: COMPLETED Source: [place] 12:00 AM [facility] REPOSITORY Patient Update (WOOB) KERON JACKSON ([id number]) 1995 F Date Time Provider Department 08/16/18 LOLA FISH During your visit today, we recorded the following information about you: Leigh Wright LPN 08/16/2018 3:17 PM Signed Pt delivered via at [facility] on 08/15/[address] Fish. See OB Outcome Note. Leigh Wright LPN Allergies As of Date: 08/16/2018 (No Known Allergies) Date Reviewed: 08/11/2018 Reviewed by: Kayla Dudley - Fully Assessed Prescriptions as of 08/16/2018 Sig: FERROUS SULFATE 325 MG (65 MG* Take 1 tablet by mouth once d* NITROFURANTOIN MONOHYDRATE AND * Take 1 capsule by mouth once * VIT 87-IRON CARB,ASP* Take 1 tablet by mouth once d* Problem List As Of Date 08/16/2018 Noted Resolved Quit smoking [Z87.891] INVALID FOR* More... History of methamphetamine abuse [Z87.898] INVALID FOR* More... Underweight [R63.6] INVALID FOR* More... Supervision of high risk in first tri*INVALID FOR* Drug abuse counseling and surveillance of drug *INVALID FOR* Counseling for family member of drug abuser [Z7*INVALID FOR* UTI (urinary tract infection) in , ant*INVALID FOR* More... Antepartum anemia complicating in sec*INVALID FOR* Encounter Status:Closed by LEIGH WRIGHT LPN on 08/16/18 OPERATIVE REPORT Observed: 08/15/2018 Status: F Source: [place] 2:08 AM [facility] [place] [facility] Medical Records Department [address] [place] [address] Operative Report 08/15/18 0037 MR#: [id number] Acct: [id number] Name: KERON JACKSON Rep #: [id number] : 1995 22 From: Lola Fish PCP: Care Physician, No Primary Status: ADM IN Location: [place] [address] Vaginal Delivery Maternal Presentation: Spontaneous Rupture of Membranes Amniotic Membrane Rupture Type: Spontaneous at home Amniotic Fluid Description: Clear Final SAUL: 08/10/18 Gestational age: 40 Weeks and 5 Days Date of Procedure: 08/15/18 Pre-Operative Diagnosis: SROM Post-Operative Diagnosis: SROM Surgery/ Procedure Performed: Spontaneous Vaginal Delivery Type of Anesthesia: Epidural Description of Procedure: Patient prepped AND draped when c/c/+3. She pushed to deliver head. head gently guided to allow delivery of anterior AND posterior shoulders. No excess traction placed on head. Body easily followed AND placed on maternal abdomen. 3VC clamped AND cut in delayed fashion. Placenta delivered with gentle traction and good uterine tone obtained. Presentation: SARA Placental Delivery Description: Expressed Placenta Disposition: [facility] Cord Vessel Description: 3 Vessels Cord Gases drawn per routine: ABG, VBG Cord Entanglement: Around neck x 1, loose Estimated Blood Loss: 300ml A gender: Male (1 minute): 8 (5 minute): 9 Episiotomy Description: None Laceration: 2nd degree Medications given after delivery: IV Pitocin Complications: None 08/15/18 0208 <Electronically signed by Lola Fish > Date Lola Fish CC: No Primary Care Physician; Lola Fish Signed HISTORY AND PHYSICAL Observed: 08/14/2018 Status: F Source: [place] EXAM 6:55 PM [facility] [place] [facility] Medical Records Department [address] [address] History and Physical 08/14/18 1849 MR#: [id number] Acct: [id number] Name: KERON JACKSON Rep #: [id number] : 1995 22 From: Lola Fish PCP: Care Physician, No Primary Status: ADM IN Y Location: [id number] History Date of Admission: 04/01/18 History of this : This is a 22 year-old, G [], P [], at 40 weeks gestational age. Medical History: Medical History (Last Updated 04/01/18 @ 08:33 by Lola Fish) Pyelonephritis affecting O23.00 Allergies No Known Allergies Allergy (Verified 08/12/18 12:19) Home Medications: Home Medications Vit No.130/Iron/Folic [ Tablet] 1 each PO DAILY 04/01/18 Ferrous Sulfate 325 mg PO BIDCM 07/18/18 Nitrofurantoin Monohyd/M-Cryst [Macrobid 100 mg Capsule] 100 mg PO DAILY 07/18/18 Smoking Status: Former smoker Substance Use Type: Methamphetamine Number of Fetus(es): 1 Heart Tracin's with moderate variability, accels, mild variables. Periods of indeterminite baseline TOCO Analysis: irregular History Past Pregnancies: Past Pregnancies Delivery Name GA[facility]Weeks [facility] FOB Date ght nder h a Location Labs: See [facility] H AND P Physical Exam General: Alert, Oriented x3 Abdomen: Soft, Non Tender, Non-Distended, Gravid Cervix Dilation (cm): 3 Station: -1 Effacement (%): 90 Assessment/Plan All Active Problems (Last Updated 04/01/18 @ 08:33 by Lola Fish) Pyelonephritis affecting in second trimester (Acute) Cramping affecting , antepartum (Acute) This is a 22 year-old, at 40 AND 4 weeks gestational age. Admit to L AND D SROM - start pitocin to induce labor GBS negative FWB - tachycardic but overall reassuring. EFM reviewed with nursing staff. FSE placed. Pain - epidural as desired EFW less than 4500g, adequate pelvis Routine care 08/14/18 3185 <Electronically signed by Lola Fish > Date Lola Fish Cosigner Signature: Date (if applicable) CC: No Primary Care Physician; Lola Fish Signed CBC-COMPLETE BLOOD CNT Collected: 08/14/2018 Status: F Source: [place] 3:50 PM [facility] [place] TYPE CODE TESTS RESULT OUT OF RANGE REFERENCE UNITS LAB L100.1000 4.4-11.0 K/mm3 Normal WBC 8.2 LAB L100.1200 4.2-5.4 M/mm3 Normal RBC 4.27 LAB L100.1300 12.0-15.0 g/dl Normal HGB 13.3 LAB L100.1400 37-47 % Normal HCT 39.8 LAB L100.1500 81-99 fL Normal MCV 93.2 LAB L100.1600 27.0-32.0 pg Normal MCH 31.1 LAB L100.1700 32-36 g/gl Normal MCHC 33.4 LAB L100.1810 11.6-14.6 % Normal RDW CV 13.1 LAB L100.1820 35.1-43.9 fl High RDW SD 44.2 LAB L100.1900 150-450 K/mm3 Normal PLT 184 LAB L100.2000 6.2-12.0 fl Normal MPV 10.0 Performed By: #### L100.0500 #### [facility] [address] [place], [address] TYPE AND SCREEN Collected: 08/14/2018 Status: F Source: [place] 3:50 PM [facility] [place] Order Comment: Reason for Type AND Screen/Red Cells: ROUTINE TYPE CODE TESTS RESULT OUT OF RANGE REFERENCE UNITS LAB B10.0800 O Normal BLOOD TYPE GEL POSITIVE LAB B100.4000 Normal Antibody NEGATIVE Screen Performed By: #### B101.7450 #### [facility] [address] [place], [place], [id number] URINE DRUG SCREEN Collected: 08/14/2018 Status: F Source: [place] (VISTA) 3:45 PM [facility] [place] TYPE CODE TESTS RESULT OUT OF RANGE REFERENCE UNITS LAB L505.0075 TO BE Normal CONFIRMED Result Comment: CONFIRMATORY TESTING FOR ALL POSITIVE URINE DRUG SCREEN RESULTS WILL ONLY BE SENT OUT UPON PHYSICIAN ORDER. VISTA Urine Drug Screen methods provide only preliminary analytical test results. A more specific alternate chemical method must be used in order to obtain a confirmed analytical result. Gas chromatography/mass spectrometery (GC/MS) is the preferred confirmatory method. Clinical consideration and professional judgement should be applied to any drug of abuse test result, particularly when preliminary positive results are used. URINE TCA TESTING MUST BE ORDERED SEPARATELY. USE TEST MNEMONIC: [facility] LAB L505.5005 VISTA UDS PH 7 Normal LAB L505.5015 <1000 ng/mL AMPHETAMINES Normal NEGATIVE LAB L505.5025 < 200 ng/mL BARBITIURATES Normal NEGATIVE LAB L505.5035 < 200 ng/mL BENZODIAZIPINE Normal NEGATIVE LAB L505.5045 < 300 ng/mL COCAINE Normal NEGATIVE LAB L505.5055 < 500 ng/mL ECSTACY Normal NEGATIVE LAB L505.5065 < 300 ng/mL METHADONE Normal NEGATIVE LAB L505.5075 < 300 ng/mL OPIATES Normal NEGATIVE LAB L505.5085 < 25 ng/mL PCP Normal NEGATIVE LAB L505.5095 < 50 ng/mL THC Normal NEGATIVE Performed By: #### L505.5000 #### [facility] [address] [place], [place], [id number] (ROM) RUPTURE OF Collected: 08/14/2018 Status: F Source: [place] 2:15 PM [facility] [place] TYPE CODE TESTS RESULT OUT OF REFERENCE UNITS RANGE LAB L205.1310 Negative High ROM POSITIVE Result Comment: Amniotic fluid present indicates rupture of Membranes. RESULTS CALLED TO OLIVA 08/14/18 1521 Awa Jeff. REPORT READ BACK BY SAME . Performed By: #### L205.1000 #### [facility] [address] [place], [place], [address] (ROM) RUPTURE OF Collected: 08/12/2018 Status: F Source: [facility] 12:15 PM [facility] [place] TYPE CODE TESTS RESULT OUT OF RANGE REFERENCE UNITS LAB L205.1310 Negative Normal ROM Negative Result Comment: Amniotic fluid not present indicates No Rupture of Membranes at time of specimen collection. Performed By: #### L205.1000 #### [facility] [address] [place], [place], [address] PROGRESS Observed: 08/11/2018 Status: COMPLETED Source: [place] 5:46 PM [facility] REPOSITORY HNO ID: [id number] Author: Kayla Dudley Service: (none) Author Type: Motor Vehicle Operator Road Supervisor Type: Progress Notes Filed: 08/11/2018 5:49 PM Note Text: CM - S: Keron Jackson presents for a routine OB visit at 40w1d. She denies LOF, VB, DFM or cramping/contractions. O: See flow sheet Gen: A+O x 3, NAD Abdomen: NT x 4 quadrants, S=D Extremities: No edema SVE = 1.5/80/-2, membrane sweep done today A/P: 40w1d IUP. Normal . RTO 1 Weeks for follow up. Call with LOF, VB, DFM or cramping/contractions. 1. 40 weeks gestation of -C teaching done, Labor Precautions reviewed -Postdates induction of labor discussion initiation - risks/benefits/alternatives reviewed. Patient desires IOL at 41 weeks gestation if spontaneous labor does not occur. - URINE OB DIP B/O Kayla Dudley APRN.CNM PROGRESS Observed: 08/04/2018 Status: COMPLETED Source: [place] 6:29 PM [facility] REPOSITORY HNO ID: [id number] Author: Kayla Dudley Service: (none) Author Type: Motor Vehicle Operator Road Supervisor Type: Progress Notes Filed: 08/04/2018 6:30 PM Note Text: CM - S: Keron Jackson presents for a routine OB visit at 39w1d. She denies LOF, VB, DFM or cramping/contractions. Patient was seen in triage last night for rule out labor and frequent ctx, tachycardia with baseline at 200 noted initially when continuous EFM initiated but spontaneously resolved after IV hydration to a Category I FHT. Patient presents for follow-up visit today to reassess FHT. O: See flow sheet Gen: A+O x 3, NAD Abdomen: NT x 4 quadrants, S=D. Prolonged doppler auscultation done x 5 minutes - baseline 140 with +accels x 2 to 160-170s x 20 seconds noted with return to baseline within 5 minute auscultation period Extremities: No edema in LE A/P: 39w1d IUP. Normal . RTO 1 Weeks for follow up. Call with LOF, VB, DFM or cramping/contractions. 1. Encounter for supervision of normal first in third trimester -[facility] teaching done, Labor precautions reviewed - URINE OB DIP B/O 2. 39 weeks gestation of - URINE OB DIP B/O Kayla Dudley APRN.CNM URINE DRUG SCREEN Collected: 08/04/2018 Status: F Source: [place] ([place]) 3:45 AM [facility] [place] TYPE CODE TESTS RESULT OUT OF RANGE REFERENCE UNITS LAB L505.0075 TO BE Normal CONFIRMED Result Comment: CONFIRMATORY TESTING FOR ALL POSITIVE URINE DRUG SCREEN RESULTS WILL ONLY BE SENT OUT UPON PHYSICIAN ORDER. VISTA Urine Drug Screen methods provide only preliminary analytical test results. A more specific alternate chemical method must be used in order to obtain a confirmed analytical result. Gas chromatography/mass spectrometery (GC/MS) is the preferred confirmatory method. Clinical consideration and professional judgement should be applied to any drug of abuse test result, particularly when preliminary positive results are used. URINE TCA TESTING MUST BE ORDERED SEPARATELY. USE TEST MNEMONIC: [facility] LAB L505.5005 VISTA UDS PH 6 Normal LAB L505.5015 <1000 ng/mL AMPHETAMINES Normal NEGATIVE LAB L505.5025 < 200 ng/mL BARBITIURATES Normal NEGATIVE LAB L505.5035 < 200 ng/mL BENZODIAZIPINE Normal NEGATIVE LAB L505.5045 < 300 ng/mL COCAINE Normal NEGATIVE LAB L505.5055 < 500 ng/mL ECSTACY Normal NEGATIVE LAB L505.5065 < 300 ng/mL METHADONE Normal NEGATIVE LAB L505.5075 < 300 ng/mL OPIATES Normal NEGATIVE LAB L505.5085 < 25 ng/mL PCP Normal NEGATIVE LAB L505.5095 < 50 ng/mL THC Normal NEGATIVE Performed By: #### L505.5000, L400.0001 #### [facility] [address] [facility] [place], [place], [id number] URINALYSIS, COMPLETE Collected: 08/04/2018 Status: F Source: [place] 3:45 AM [facility] [place] [facility] Order Comment: How was Urine Obtained? CLEAN CATCH TYPE CODE TESTS RESULT OUT OF RANGE REFERENCE UNITS LAB L400.3000 Yellow COLOR Normal Yellow LAB L400.3050 Clear Normal CLARITY Clear LAB L400.3200 Normal mg/dl Normal GLUCOSE, UR Normal LAB L400.3300 Negative mg/dL Normal BILIRUBIN URINE Negative LAB L400.3400 Negative mg/dl High 50 KETONE UR LAB L400.3465 1.002-1.030 Normal SP.GR. DIPSTX 1.015 LAB L400.3550 5.0 - 8.0 pH UR Normal 6.0 LAB L400.3600 Negative mg/dl High PROT 15 DIPSTX LAB L400.3700 Normal mg/dl Normal UROBILI Normal LAB L400.3750 Negative Normal NITRITE UR Negative LAB L400.3780 Negative /ul Normal OCCULT BLOOD-UR Negative LAB L400.3800 Negative /ul High LEUK 25 ESTERASE LAB L400.4050 0-5 /hpf WBC Normal 0-5 SEEN LAB L400.4100 0-5 /hpf 0 Normal RBC-UA SEEN LAB L400.4150 5-10 /hpf SQUAM Normal EPI 0-5 SEEN LAB L400.4300 None Seen /hpf 1+ Normal BACTERIA LAB L400.4350 <or=2+ /hpf 0 Normal MUCUS, URINE SEEN Performed By: #### L505.5000, L400.0001 #### [facility] [address] [facility] [place], [address] CBC W/DIFF, AUTOMATED Collected: 08/04/2018 Status: F Source: [place] 3:45 AM [facility] [place] TYPE CODE TESTS RESULT OUT OF RANGE REFERENCE UNITS LAB L100.1000 4.4-11.0 K/mm3 Normal WBC 7.8 LAB L100.1200 4.2-5.4 M/mm3 Low RBC 4.04 LAB L100.1300 12.0-15.0 g/dl Normal HGB 12.5 LAB L100.1400 37-47 % Normal HCT 37.6 LAB L100.1500 81-99 fL Normal MCV 93.1 LAB L100.1600 27.0-32.0 pg Normal MCH 30.9 LAB L100.1700 32-36 g/gl Normal MCHC 33.2 LAB L100.1810 11.6-14.6 % Normal RDW CV 13.5 LAB L100.1820 35.1-43.9 fl High RDW SD 45.7 LAB L100.1900 150-450 K/mm3 Normal PLT 216 LAB L100.2000 6.2-12.0 fl Normal MPV 9.6 LAB L100.2100 47-70 % Normal NEUT% 66.7 LAB L100.2200 19-41 % Normal LY% 26.2 LAB L100.2300 0-10 % Normal MONO% 6.4 LAB L100.2400 0-5 % Normal EO% 0.3 LAB L100.2500 0-1 % Normal BASO% 0.0 LAB L100.2550 0.0-0.9 % Normal IM GRAN % 0.400 Result Comment: IG% - Immature Granulocytes (promyelocytes, myelocytes and metamyelocytes) > 1% indicates that a LEFT SHIFT is Present. LAB L100.2620 2.0-7.7 X10 3/uL Normal Absolute Neut 5.2 LAB L100.2720 0.83-4.51 X10 3/ul Normal Absolute Lymph 2.05 Performed By: #### L100.0100, M100.0650 #### [facility] [address] [facility] [place], [place], [address] Observed: 08/04/2018 Status: F Source: [place] CULTURE, URINE 3:45 AM [facility] [place] [facility] Urine Culture Culture exhibits no growth. Performed By: #### L100.0100, M100.0650 #### [facility] [address] [place], [place], [id number] SURGICAL PATHOLOGY Observed: 07/29/2018 Status: F Source: [place] 4:56 PM [facility] REPOSITORY Specimen originated from [facility] Specimen #: [id number] Submitting Physician: TRACI FUENTES M.D. ([id number]) FINAL DIAGNOSIS A. Skin, left middle finger, excision - Pyogenic granuloma. JASMINA/ET/rich 08/03/2018 Halima Esqueda M.D. (Electronic Signature) SPECIMEN SUBMITTED A: SKIN, LEFT MIDDLE FINGER, EXCISION CLINICAL DATA skin cyst GROSS DESCRIPTION A. Received in formalin are two segments of luong soft skin aggregating to 0.7 x 0.3 x 0.2 cm. Specimen is not sectioned. Totally submitted in formalin in one cassette. Gross examination performed at [facility], [address] [place] [address] 08/02/2018 1:35:23 PM Date of Report: 08/03/2018 Date of Procedure: 07/29/2018 Date of Receipt: 08/01/2018 Submitted by: TRACI FUENTES M.D. ([id number]) Location: [facility] Diagnostic interpretation performed at [facility], [address] [place] [address]. PROGRESS Observed: 07/29/2018 Status: COMPLETED Source: [place] 2:23 PM [facility] REPOSITORY HNO ID: [id number] Author: Traci Fuentes Service: (none) Author Type: Physician Type: Progress Notes Filed: 07/29/2018 3:17 PM Note Text: Keron Jackson is a 22 year old female who presents today for a skin biopsy. Indication: Persistent erythematous raised lesion that bleeds easily on the left middle finger. UNIVERSAL PROTOCOL / SAFETY CHECKLIST Procedure to be performed: Removal of skin lesion on left middle finger Sign in Communication: Completed Time Out: Team Confirms the Correct Patient, Correct Procedure, Correct Site and Site Marking, Correct Position (if applicable), Prep and Dry Time (if applicable). Time: 1422 Affirmation of Time Out: YES Sign Out Discussion: Completed Traci Fuentes MD PROCEDURE NOTE: GROSS LESIONS: Erythematous raised lesion approximately 4 mm in diameter on left middle finger BIOPSY: Area was cleansed with betadine and anesthetized with 0.3mL 1% lidocaine with 1:100,000 epi. A scalpel was used to incise the skin around the lesion and then the scissors were used to undermine the lesion and remove it. Silver nitrate and pressure were used to ensure hemostasis. The lesion was then bandaged. ASSESSMENT: Necrotic friable lesion of left middle finger PLAN: Specimens labeled and sent to Pathology. Post-procedure instructions reviewed a Traci Fuentes MD GROUP B STREP PCR Collected: 07/20/2018 Status: F Source: [place] 3:20 PM [facility] REPOSITORY TYPE CODE TESTS RESULT OUT OF REFERENCE UNITS RANGE LAB GBPCRT Negative for GROUP Group B B STREP PCR Streptococcus by PCR. Performed By: #### GBPCR #### [facility] [address] [place], [place] [address] TOXICOLOGY SCREEN,UR Collected: 06/24/2018 Status: F Source: [place] 9:00 AM [facility] REPOSITORY TYPE CODE TESTS RESULT OUT OF REFERENCE UNITS RANGE LAB UPCP2 Negative Negative Phencyclidin e, Urine Result Comment: Cutoff threshold at 25 ng/mL. LAB UBENZ2 Negative Benzodiazepines, Ur Negative Result Comment: Cutoff threshold at 200 ng/mL. LAB UCOC2 Negative Cocaine, Negative Urine Result Comment: Cutoff threshold at 300 ng/mL. LAB UAMPH2 Negative Amphetamines, Urine Negative Result Comment: Cutoff threshold at 1000 ng/mL. LAB UTHC2 Negative Cannabinoids, Urine Negative Result Comment: Cutoff threshold at 50 ng/mL. LAB UOPI2 Negative Opiates, Negative Urine Result Comment: Cutoff threshold at 300 ng/mL. LAB UBARB2 Negative Barbiturates, Urine Negative Result Comment: Cutoff threshold at 200 ng/mL. LAB UETOH <11 mg/dL <11 Ethanol, Urine LAB UOXYC Negative Oxycodone, Negative Urine Result Comment: Cutoff threshold at 100 ng/mL. Comment: Immunoassay screen only. Cross reactivity with other substances can occur with immunoassay screening. Detection of any drug(s) in this urine toxicology panel is presumptive only. These tests are for med ical purposes only and should not be used for compliance monitoring, legal, or forensic use. Samples should be within normal physiological conditions (e.g. pH). This assay does not include adulteration/specimen validity testing. In clinical settings, confirmatory testing is at the practitioner's discretion [1]. If clinically indicated, confirmation by high specificity, quantitative methodology, which includes adulteration/spec imen validity testing, may be requested on the same specimen through Client Services ([phone]) if contacted within 48 hours of initial testing. [1]Substance Abuse and Mental Health Services Administration (2012). Clinical Drug Testing in Primary Care Technical Assistance Publication Series 32. Department of Health and Human Services, [place], p.10. These tests were developed and their performance characteristics determined by [facility]'s [facility] ([facility]). They have not been cleared or a pproved by the FDA. [facility] is regulated under CLIA as qualified to perform high complexity testing. These tests are used for clinical purposes. They should not be regarded as investigational or for research. Performed By: #### [email or web address] #### [facility] [address], [place] [address] PROGRESS Observed: 06/23/2018 Status: COMPLETED Source: [place] 1:48 PM [facility] REPOSITORY O ID: [id number] Author: Korina Frazier Ma Service: (none) Author Type: (none) Type: Progress Notes Filed: 06/23/2018 2:13 PM Note Text: Patient identified by name and date of . Keron Jackson presents today for a vaccination of Tdap. Patient denies an allergy to latex: yes Patient denies a severe (life-threatening) allergy to a previous dose of Tdap, DTP, DTaP, DT or Td vaccine. Yes Patient denies history of epilepsy or neurological problems: Yes Patient is afebrile and denies being moderately or severely ill: Yes Patient denies history of Guillain-Clinton Syndrome (a severe paralytic illness): Yes Tdap Adacel injection was given without incident. See immunizations for details of immunizations administered today. VIS sheet provided: Yes Provider Luciano was present in office at time of injection. Korina Frazier Ma PROGRESS Observed: 06/07/2018 Status: COMPLETED Source: [place] 2:51 PM [facility] REPOSITORY HNO ID: [id number] Author: Oliva Norton Service: (none) Author Type: Motor Vehicle Operator Road Supervisor Type: Progress Notes Filed: 06/09/2018 5:13 PM Note Text: SBIRT Keron Jackson was given the 4's screening tool. Keron answered as follows: OB Opioid Screening - Last Recorded (since 09/10/2017) Did any of your parents have a problem with alcohol or other drug use? ! YES Does your partner have a problem with alcohol or other drug use? No In the past, have you had difficulties in your life because of alcohol or other drugs, including prescription medications? ! YES In the past month have you drunk any alcohol or used other drugs? No Are you taking medication for pain during the either prescribed or not? No Based on the screen and further questions, she is considered at Low risk due to:No past or current use. 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 Patient declines any further counseling or assistance with sobriety. She feels at this time she will stay sober for the baby. No use currently and feel she is doing well. Positive reinforcement of current behavior. Plan to rescreen early third trimester. Oliva Norton APRN.CNM PROGRESS Observed: 06/07/2018 Status: COMPLETED Source: [place] 2:19 PM [facility] REPOSITORY HNO ID: [id number] Author: Gissell Miller Ma Service: (none) Author Type: (none) Type: Progress Notes Filed: 06/09/2018 5:13 PM Note Text: 22 year old female here for INACTIVATED INFLUENZA VACCINE. 9068-8802 Season Patient is identified by name and date of : Yes [] CONTRAINDICATIONS color enhanced section Age less than 6 months? No Allergy to eggs, chicken, chicken feathers, or chicken dander? No Allergy to thimerosal (a preservative) or formaldehyde, gelatin? No History of severe reaction to any vaccine component or a previous dose of influenza vaccination? No History of Guillain-Clinton Syndrome within 6 weeks after a previous influenza vaccine? No Patient is not moderately or severely ill? No Current temperature greater or equal to 100.4F? No History of Bone Marrow Transplant prior 6 months or solid organ transplant in the past 3 months ? No History of fainting after a prior injection or medical procedure? No- ? If patient has fainted in the past, the CDC recommends sitting or lying down for 15 minutes after the vaccination. [] VERIFICATION color enhanced section Was the answer Yes for any of the above contraindications? No contraindications present. Acceptable to proceed with vaccine. Patient/guardian agrees the above answers are true to the best of their knowledge? Yes Flu vaccine information sheet given? Yes See immunization activity in [facility] for details of immunizations adminstered today. Patient age: [age] year old For The 4180-3381 Flu Season 6-35 months old: Fluzone 0.25 ml - IM (Preservative Free) 3 years of age: Fluzone 0.5 ml - IM (Preservative Free) 3 years and older: Fluzone 0.5 ml- IM-(with Preservatives) 65+ years old: 2-49 years old Fluzone High-Dose 0.5 ml - IM (Preservative Free) FLUMIST- intranasal REMEMBER: If patient is less than 9 years of age and this is the first vaccine of Influenza to be received in any flu season, they should receive a second dose in one months time. CBC AND DIFFERENTIAL Collected: 05/10/2018 Status: F Source: [place] 3:51 PM [facility] REPOS[facility] TYPE CODE TESTS RESULT OUT OF REFERENCE UNITS RANGE LAB WBC 3.70-11.00 k/uL WBC 8.97 LAB RBC 3.90-5.20 m/uL Low RBC 3.41 LAB HGB 11.5-15.5 g/dL Low Hemoglobin 11.0 LAB HCT 36.0-46.0 % Low Hematocrit 35.5 LAB MCV 80.0-100.0 fL MCV High 104.1 LAB MCH 26.0-34.0 pG MCH 32.3 LAB MCHC 30.5-36.0 g/dL MCHC 31.0 LAB RDWCV 11.5-15.0 % RDW-CV 13.9 LAB PLTCT 150-400 k/uL Platelet Count 257 LAB MPV 9.0-12.7 fL MPV 10.0 LAB ANEUT % Neut% 70.3 LAB AANEUT 1.45-7.50 k/uL Abs Neut 6.30 LAB ALYMP % Lymph% 21.7 LAB AALYMP 1.00-4.00 k/uL Abs Lymph 1.95 LAB AMONO % Childress% 6.8 LAB AAMONO <0.87 k/uL Abs Childress 0.61 LAB AEOS % Eosin% 0.8 LAB AAEOS <0.46 k/uL Abs Eosin 0.07 LAB ABASO % Baso% 0.4 LAB AABASO <0.11 k/uL Abs Baso 0.04 LAB AUNRBC 0 /100 WBC NRBCs 0.0 LAB ABNRBC <0.01 k/uL Absolute nRBC <0.01 LAB DTYP DTYPE Auto Diff Performed By: #### CBCDIF #### [facility] [address] [place] [address] 50G, 1HR GEST. Collected: 05/10/2018 Status: F Source: [place] GSCN 3:51 PM [facility] REPOSITORY TYPE CODE TESTS RESULT OUT OF REFERENCE UNITS RANGE LAB GLUP 74-134 mg/dL Low Glucose 58 Screen, Preg Result Comment: [place] Congress of Obstetricians and Gynecologists (Garcia/Elvastan) guidelines state a gestational diabetes mellitus positive screen is made, in women not previously diagnosed with overt diabetes, when the 1 hr plasma glucose level is equal to or above 140 mg/dL. The [facility] Online Merchandising Coordinator and [facility] recommends a 135 mg/dL cutoff. Performed By: #### GLTGST #### [facility] [address] [place], [place] [address] PROGRESS Observed: 05/10/2018 Status: COMPLETED Source: [place] 3:13 PM [facility] REPOSITORY HNO ID: [id number] Author: Kayla Dudley Service: (none) Author Type: Motor Vehicle Operator Road Supervisor Type: Progress Notes Filed: 05/10/2018 3:14 PM Note Text: CM - S: Keron Jacksno presents for a routine OB visit at 26w6d. She denies LOF, VB, DFM or cramping/contractions. Patient reports RUQ half-dollar sized superficial area on skin that [place] and hurts the worst with sitting up and other position changes. Denies any other FORRESTER, fever, or scotoma. Patient denies substance use - denies recent meth use. Patient has also continues not to smoke. O: See flow sheet Gen: A+O x 3, NAD Abd: S=D, Gravid. SARA by Gabriele's Extremities: No edema in LE A/P: 26w6d IUP. Normal . RTO 4 Weeks for follow up. Call with LOF, VB, DFM or cramping/contractions. 1. Encounter for supervision of normal first in second trimester -C teaching and PTL precautions reviewed today -Reassurance provided that RUQ likely d/t position - URINE OB DIP B/O 2. 26 weeks gestation of -1 hour GCT + CBC ordered today -LARC declination signed today -SBIRT - negative screen - URINE OB DIP B/O - CBC + DIFF; Future - GEST GLUC SCREEN, 1-HR, 50 GM, NON-FASTING; Future Kayla Dudley, NICA.WALDEMAR SBIRT Keron Jackson was given the 4P's screening tool. Keron answered as follows: OB Opioid Screening - Last Recorded (since 08/13/2017) Did any of your parents have a problem with alcohol or other drug use? (!) Yes (Mother with ETOH and Drug use) Does your partner have a problem with alcohol or other drug use? No In the past, have you had difficulties in your life because of alcohol or other drugs, including prescription medications? (!) Yes In the past month have you drunk any alcohol or used other drugs? No Are you taking medication for pain during the either prescribed or not? No Based on the screen and further questions, she is considered at Low risk due to:Low level of use stopped prior to or immediately upon known . Positive reinforcement of current behavior. Kayla Dudley APRN.CNM Observed: 04/11/2018 Status: F Source: [place] URINE CULTURE 2:50 PM [facility] REPOSITORY Sp. Request/Comment: - Specimen received in preservative Culture Result - <10,000 CFU/ml Enterococcus faecalis --> ABNORMAL ALERT Cephalosporins, clindamycin, and TMP-SMX are not effective for the treatment of enterococcal infections. --> ABNORMAL AL ERT Insignificant colony count. No further workup. --> ABNORMAL ALERT <10,000 CFU/ml Normal urogenital lida Performed By: #### URCUL #### [facility] [address] [place], [place] [address] CBC-COMPLETE BLOOD CNT Collected: 04/02/2018 Status: F Source: [place] NO DIFF 7:40 AM [facility] [place] TYPE CODE TESTS RESULT OUT OF RANGE REFERENCE UNITS LAB L100.1000 4.4-11.0 K/mm3 Normal WBC 9.3 LAB L100.1200 4.2-5.4 M/mm3 Low RBC 2.90 LAB L100.1300 12.0-15.0 g/dl Low HGB 9.3 LAB L100.1400 37-47 % Low HCT 27.8 LAB L100.1500 81-99 fL Normal MCV 95.9 LAB L100.1600 27.0-32.0 pg High MCH 32.1 LAB L100.1700 32-36 g/gl Normal MCHC 33.5 LAB L100.1810 11.6-14.6 % Normal RDW CV 12.5 LAB L100.1820 35.1-43.9 fl Normal RDW SD 42.3 LAB L100.1900 150-450 K/mm3 Normal PLT 187 LAB L100.2000 6.2-12.0 fl Normal MPV 9.5 Performed By: #### L100.0500 #### [facility] [address] [place], [place], [address] DISCHARGE INSTRUCTION Observed: 04/02/2018 Status: F Source: [place] 6:43 AM [facility] [place] [facility] Medical Records Department [address] [place] [address] Instructions for Home/Discharge Instructions 04/02/18 0641 MR#: [id number] Acct: [id number] Name: KERON JACKSON Rep #: [id number] : 1995 22 From: Traci Fuentes MD PCP: Care Physician, No Primary Status: ADM CHERYL - Discharge Diagnoses Current Active Problems: Current Active and Chronic Problems (Last Updated 04/01/18 @ 08:33 by Lola Fish) Pyelonephritis affecting in second trimester (Acute) You will use the following diet at home:: No restrictions Your food should be the consistency of: Regular Your liquids should be the consistency of: Regular/Thin Discharge Activity: Return to Normal Activity Return to work on:: 04/04/18 May shower in (days): 0 May resume sexual activity in: No Restrictions Call your doctor if you observe: Fever of 101 or Higher, Inability to urinate, Uncontrolled pain Additional Instructions: Call if any vaginal bleeding or leaking of fluid or more than 6 contractions in an hour. Allergies/Adverse Reactions: Allergies No Known Allergies Allergy (Verified 04/01/18 02:33) Medications to take at Discharge Cephalexin [Keflex] 500 mg PO Q8H 04/01/18 Vit No.130/Iron/FA [ Tablet] 1 each PO DAILY 04/01/18 Primary Care Physician: Care Physician,No Primary [Primary Care Provider] - Test Results: Test results from this visit will be discussed in further detail at your follow-up appointment, if applicable. Please Follow Up With: Traci Fuentes MD - [phone] When: Dr. Fuentes's office in 1-2 weeks or as needed 04/02/18 0643 <Electronically signed by Traci Fuentes MD> Date Traci Fuentes MD CC: No Primary Care Physician HISTORY AND PHYSICAL Observed: 04/01/2018 Status: F Source: [place] EXAM 8:40 AM [facility] [place] [facility] Medical Records Department [address] [place] [address] History and Physical 04/01/18 0833 MR#: [id number] Acct: [id number] Name: KERON JACKSON Rep #: [id number] : 1995 22 From: Lola Fish PCP: Care Physician, No Primary Status: ADM CHERYL Y Location: [place] [address] History Date of Admission: 04/01/18 Gestational age: 21.2 History of this : Patient presented to ED with worsening right flank pain. 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 positive ecoli urine culture. Review of Systems Constitutional: Reports: Chills - at home before admission, Fever Cardiovascular: Reports: - - negative Respiratory: Reports: Shortness of Breath - in ED last night, has now resolved Gastrointestinal: Reports: Nausea - has resolved Genitourinary: Reports: - - denies Gynecological: Reports: - - denies VB/LOF/ctxs Physical Exam Vitals: Vital Signs Temp Pulse Resp BP Pulse Ox 98.4 F 106 H 18 113/73 99 04/01/18 04:15 04/01/18 04:15 04/01/18 04:15 04/01/18 04:15 04/01/18 04:15 General: Alert, Oriented x3 Abdomen: Soft, Non Tender, Non-Distended, Gravid, - - positive right flank tenderness Extremities:: No tenderness/swelling Neurological: Cranial nerves II-XII grossly intact Assessment/Plan All Active Problems Pyelonephritis affecting in second trimester (Acute) 22yo female @ 21 AND 2 with pyelonephritis Admit for observation. ID - Patient received gentamycin AND rocephin. Prior urine culture sensitivities reviewed. Will need oral antibiotics the remained of . Patient had not started macrobid that was prescribed on Wednesday. GI - regular diet, nausea has resolved. FWB - fhts daily. Routine care. 04/01/18 0840 <Electronically signed by Lola Fish > Date Lola Fish Cosigner Signature: Date (if applicable) CC: No Primary Care Physician; Lola Fish Signed EMERGENCY DEPARTMENT Observed: 04/01/2018 Status: F Source: [place] SUMMARY 3:32 AM [facility] [place] [facility] Medical Records Department [address] [place] [id number] Emergency Department Summary 04/01/18 0249 MR#: [id number] Acct: [id number] Name: KERON JACKSON Rep #: [id number] : 1995 22 From: Derick Montoya MD PCP: Care Physician, No Primary Status: REG ER History of Present Illness Chief Complaint: Flank Pain Informant: Patient Onset: Days - 2 Context: Sudden Onset Timing: Intermittent - now persistent and colicky x 4 hrs or so Quality: achy Location: right low back Current Severity: Moderate Maximum Severity: Moderate Worsened by: deep breath Relieved by: nothing Associated Symptoms: n/v. subj fevers earlier. no abd pain. no vaginal sx or bleeding. Narrative: Similar symptoms to prior bouts of pyelonephritis. This includes lack of any urinary symptoms. She currently is 21 weeks and has had an uncomplicated so far. Recently was here and treated as an outpatient for pyelonephritis, she finished the 10 day course of cephalexin 1-2 weeks ago, followed up with her OB less than 1 week ago at [facility], and advised that they will be watching her very closely and possibly placing her on daily antibiotics until her delivery, although she is not on any more yet. Past Medical History - Allergies and Home Meds Allergies/Adverse Reactions: Allergies No Known Allergies Allergy (Verified 04/01/18 02:33) Smoking Status: Current every day smoker Review of Systems All systems negative except as indicated General: Reports: Fever, Malaise, Subjective Cardiovascular: Denies: Chest pain Respiratory: Denies: Dyspnea, Cough Gastrointestinal: Reports: Nausea, Vomiting. Denies: Abdominal pain, Diarrhea, Melena, Hematochezia Genitourinary: Denies: Dysuria, Hematuria, Frequency Musculoskeletal: Reports: Back pain. Denies: Neck pain, Swelling, Extremity Pain Skin: Denies: Rash Physical Exam Vital Signs/Narrative: Vital Signs 04/01/18 02:30 98.6 F 128 H 20 H 120/75 98 Inital Vital Signs reviewed: Yes General: Well nourished, Well developed Head: Normocephalic, Atraumatic Eyes: Perrl, EOMI ENT: Moist mucous membranes, No rhinorrhea Neck: Supple, Nontender Cardiovascular: Regular rate, Regular rhythm, No murmurs, Tachycardia Respiratory: No distress, CTA bilaterally, Chest nontender Abdomen: Soft, Nontender, Normal bowel sounds, - - gravid uterus just above umbilicus Back: Normal Inspection, CVA tenderness - right only Extremities: Nontender, No edema Skin: Normal color, No rash Neurological: Alert, Oriented x3, Cranial nerves II-XII grossly intact, Normal Strength, Normal Sensation, Normal Gait Psychological: Normal affect Diagnostic/Tx/Re-eval Laboratory Results - Medical Decision Making Patient was given morphine 2 mg and felt better, remained stable. I performed a bedside ultrasound since in the middle of the night, there is no explosive technician available in the hospital. There is good movement and heart tones were in the 160s. There appeared to be some mild to moderate hydronephrosis on the right when compared with the normal-appearing kidney on the left. There is no fluid in Morison's pouch. Her urine does appear infected with leukocyte esterase, nitrite, and pyuria. This was sent for culture and she was started on Rocephin. She states that with her prior episodes of pyelonephritis, she had gradual onset of pain, although this was relatively sudden and severe. Not able to rule out the possibility of an obstructive uropathy, however she does not need CT or emergency official ultrasound at this time since her kidney function is good and normal, she is not septic, and has nothing that would require surgery at this time. Discussed with Dr. Fish who is agreeable with admission and request that we add gentamicin 5 mg/kg. ED Disposition - Plan for ED Patient: Disposition: Acute Care Hospital [facility] Chief Complaint: Flank Pain Diagnosis: Pyelonephritis affecting in second trimester What to do if you have Problems For any increased pain, shortness of breath, bleeding, nausea or vomiting, chest pain, or any unexpected problems, contact your Primary Care Provider. Call [facility] ([phone]) or report to the closest Emergency Room. Call 911 if necessary. 04/01/18 0332 <Electronically signed by Derick Montoya MD> Date Derick Montoya MD Cosigner Signature (If Indicated): Date CC: No Primary Care Physician URINALYSIS, COMPLETE Collected: 04/01/2018 Status: F Source: [place] 3:04 AM [facility] [place] Order Comment: Microscopic field is filled. Other elements may be obscured. How was Urine Obtained? CLEAN CATCH TYPE CODE TESTS RESULT OUT OF RANGE REFERENCE UNITS LAB L400.3000 Yellow COLOR Normal Yellow LAB L400.3050 Clear Normal CLARITY Cloudy LAB L400.3200 Normal mg/dl Normal GLUCOSE, UR Normal LAB L400.3300 Negative mg/dL Normal BILIRUBIN URINE Negative LAB L400.3400 Negative mg/dl Normal KETONE UR Negative LAB L400.3465 1.002-1.030 Normal SP.GR. DIPSTX 1.015 LAB L400.3550 5.0 - 8.0 pH UR Normal 6.5 LAB L400.3600 Negative mg/dl High PROT DIPSTX 100 LAB L400.3700 Normal mg/dl Normal UROBILI Normal LAB L400.3750 Negative High NITRITE UR Positive LAB L400.3780 Negative /ul High 50 OCCULT BLOOD-UR LAB L400.3800 Negative /ul High LEUK ESTERASE 500 LAB L400.4050 0-5 /hpf WBC Normal 50-100 SEEN LAB L400.4100 0-5 /hpf Normal RBC-UA 0-5 SEEN LAB L400.4150 5-10 /hpf SQUAM Normal EPI 0-5 SEEN LAB L400.4300 None Seen /hpf 3+ Normal BACTERIA LAB L400.4350 <or=2+ /hpf 0 Normal MUCUS, URINE SEEN Performed By: #### L400.0001 #### [facility] [address] [place], [address] Observed: 04/01/2018 Status: F Source: [place] CULTURE, URINE 3:04 AM [facility] [place] [facility] Urine Culture Identification and sensitivity to follow. ORGANISM 1: Escherichia coli [place] Count >100,000 Escherichia coli: REACTION Amoxacillin/Clavulanic Acid $ <=2 S Ampicillin $ <=2 S Ampicillin/Sulbactam $ <=2 S Cefazolin $ <=4 S Cefepime $ <=1 S Ceftriaxone $ <=1 S Ciprofloxacin $ <=0.25 S ESBL - Ertapenim $$$ <=0.5 S Gentamicin $ <=1 S Imipenem *NF <=0.25 S Levofloxacin $ <=0.12 S Nitrofurantoin $ <=16 S Piperacillin/Tazobactam $$ <=4 S Tobramycin $ <=1 S Trimethoprim/Sulfametho $ <=20 S (NF) indicates non-formulary drug at [facility]. Approval by Infectious Disease Specialist required before non-formulary drugs may be ordered and/or dispensed. Performed By: #### M100.0650 #### [facility] [address] [place], [place], [address] CBC W/DIFF, AUTOMATED Collected: 04/01/2018 Status: F Source: [place] 2:36 AM [facility] [place] TYPE CODE TESTS RESULT OUT OF RANGE REFERENCE UNITS LAB L100.1000 4.4-11.0 K/mm3 High WBC 12.9 LAB L100.1200 4.2-5.4 M/mm3 Low RBC 3.62 LAB L100.1300 12.0-15.0 g/dl Low HGB 11.8 LAB L100.1400 37-47 % Low HCT 34.2 LAB L100.1500 81-99 fL Normal MCV 94.5 LAB L100.1600 27.0-32.0 pg High MCH 32.6 LAB L100.1700 32-36 g/gl Normal MCHC 34.5 LAB L100.1810 11.6-14.6 % Normal RDW CV 12.5 LAB L100.1820 35.1-43.9 fl Normal RDW SD 41.8 LAB L100.1900 150-450 K/mm3 Normal PLT 242 LAB L100.2000 6.2-12.0 fl Normal MPV 9.7 LAB L100.2100 47-70 % High NEUT% 81.3 LAB L100.2200 19-41 % Low LY% 12.4 LAB L100.2300 0-10 % Normal MONO% 5.7 LAB L100.2400 0-5 % Normal EO% 0.1 LAB L100.2500 0-1 % Normal BASO% 0.1 LAB L100.2550 0.0-0.9 % Normal IM GRAN % 0.400 Result Comment: IG% - Immature Granulocytes (promyelocytes, myelocytes and metamyelocytes) > 1% indicates that a LEFT SHIFT is Present. LAB L100.2620 2.0-7.7 X10 3/uL High Absolute Neut 10.5 LAB L100.2720 0.83-4.51 X10 3/ul Normal Absolute Lymph 1.60 Performed By: #### L100.0100 #### [facility] [address] [facility] [place], [address] BASIC METABOLIC Collected: 04/01/2018 Status: F Source: [place] PROFILE (BMP) 2:36 AM [facility] [place] TYPE CODE TESTS RESULT OUT OF RANGE REFERENCE UNITS LAB L501.0100 74-106 mg/dL Normal GLU 104 Result Comment: Fasting Glucose result from 100 to 125 mg/dL suggests IMPAIRED HOMEOSTASIS per A.D.A. criteria. Please note revised GLUCOSE reference range effective 2017. LAB L501.1000 7-18 mg/dL Low BUN 3 LAB L501.1100 0.55-1.02 mg/dL Low CREAT,SERUM 0.48 Result Comment: The validity of the calculated GFR AND GFRAA in patients over 70 years has not been determined. Clinical correlation is essential. LAB L501.1110 >60 mL/min Normal EST GFR 172 Result Comment: Non- GFR Calc LAB L501.1115 >60 mL/min Normal EST GFR - AA 209 Result Comment: GFR Calc LAB L501.1255 ml/min Normal Estimated CRCL 147.27 LAB L501.1300 10-20 RATIO Low BUN/CRE 6.2 LAB L501.2200 8.5-10 mg/dL .1 CA Normal 9.3 LAB L501.5300 136-14 mmol/L 5 NA Normal 138 LAB L501.5600 3.5-5. mmol/L 1 K Normal 3.6 LAB L501.5900 98-107 mmol/L CL Normal 104 LAB L501.6100 21.0-3 mmol/L 2.0 CO2 Normal 24.0 LAB L501.6200 5-15 GAP Normal 10 Performed By: #### L500.2500 #### [facility] [address] [place], [address] PROGRESS Observed: 03/28/2018 Status: COMPLETED Source: [place] 3:31 PM [facility] REPOSITORY HNO ID: [id number] Author: Umm Veronica Service: (none) Author Type: Physician Type: Progress Notes Filed: 03/28/2018 3:32 PM Note Text: A flores? fetus in utero with symmetric measurements Adequate growth (AGA). Estimated Date of Delivery: 08/10/18 EGA = 20w5d The anatomy appears normal. There are no evident malformations and /or effusions. No genetic markers are noted. The amniotic fluid volume is within normal limits. The sensitivity of ultrasound in the detection of malformations overall is approximately 35%. RECOMMENDATIONS: - Follow up ultrasound as clinically indicated Observed: 03/24/2018 Status: F Source: [place] URINE CULTURE 3:45 PM [facility] REPOSITORY Sp. Request/Comment: - Specimen received in preservative Culture Result - No growth (<1,000 CFU/ml) Performed By: #### URCUL #### [facility] [address] [place], [place] [address] EMERGENCY DEPARTMENT Observed: 03/10/2018 Status: F Source: [place] SUMMARY 10:57 PM [facility] Medical Records Department [address] [place] [address] Emergency Department Summary 03/10/18 2252 MR#: [id number] Acct: [id number] Name: KERON JACKSON Rep #: [id number] : 1995 22 From: Jeremy Henson MD PCP: Care Physician, No Primary Status: REG ER - ER Visit Summary Date of Service: 03/10/18 Chief Complaint: Flank pain History of Present Illness: The patient is a 22 F presents to the emergency department with symptoms of pyelonephritis. The patient is currently . She is at 18 weeks. She states over the past 2 days, she is intermittent pain in her right flank. She states when she gets kidney infections, she rarely has urinary symptoms, just will get pain in her kidney. She is no history of kidney stone. She denies any vaginal bleeding or discharge. She denies any recent sexual activity. She has had an uncomplicated thus far. Physical Examination: Vital signs reviewed General: Well-nourished, well-developed Head: Normocephalic, atraumatic Eyes: Pupils equal and reactive, extraocular muscles intact Neck, supple, no lymphadenopathy Heart: Regular rate and rhythm Respiratory: No distress, clear bilaterally Abdomen: Soft, nontender, nondistended, no peritoneal signs Back: Nontender Extremities: Nontender, no edema, no cords Skin: Normal color no rash Neuro: Alert and oriented, no focal or lateralizing deficits Test Results: [] Emergency Department Course and Treatment: The patient has no CVA tenderness. However, her urine does show evidence of infection. Culture was added. I did do a bedside ultrasound. There is single intrauterine . There is good activity. heart rate was in the 150s and reactive. There was no evidence of hydronephrosis on the right kidney. Patient has no fever. Her abdomen is benign. She has no reproducible tenderness. I do feel that she is safe for outpatient therapy. Given her , she will be started on Keflex. She is given her first dose here. I did add a urine culture. She will be discharged. I did child welfare counselor her that if she gets fever, worsening pain, vomiting, or any change in symptoms she needs to return immediately. She is comfortable with this plan of care. Treatment Plan: [] Disposition: Discharge Impression: Pyelonephritis This note was generated with L-3 GCS dictation software. It may contain incorrect words, spelling, and punctuation that were not noted in review of the chart prior to signing ED Disposition - Plan for ED Patient: Chief Complaint: Flank Pain Instructions: ED Kidney Infec Female Prescriptions: Cephalexin [Keflex] 500 mg PO Q8 #30 cap What to do if you have Problems For any increased pain, shortness of breath, bleeding, nausea or vomiting, chest pain, or any unexpected problems, contact your Primary Care Provider. Call [facility] ([phone]) or report to the closest Emergency Room. Call 911 if necessary. 03/10/18 1774 <Electronically signed by Jeremy Henson MD> Date Jeremy Henson MD Cosigner Signature (If Indicated): Date CC: No Primary Care Physician URINALYSIS, COMPLETE Collected: 03/10/2018 Status: F Source: [place] 10:02 PM [facility] Order Comment: How was Urine Obtained? TRAINING GENERALIST TO SPECIFY TYPE CODE TESTS RESULT OUT OF RANGE REFERENCE UNITS LAB L400.3000 Yellow COLOR Normal Yellow LAB L400.3050 Clear Normal CLARITY Cloudy LAB L400.3200 Normal mg/dl Normal GLUCOSE, UR Normal LAB L400.3300 Negative mg/dL Normal BILIRUBIN URINE Negative LAB L400.3400 Negative mg/dl Normal KETONE UR Negative LAB L400.3465 1.002-1.030 Normal SP.GR. DIPSTX 1.015 LAB L400.3550 5.0 - 8.0 pH UR Normal 7.0 LAB L400.3600 Negative mg/dl High PROT 30 DIPSTX LAB L400.3700 Normal mg/dl High 1 UROBILI LAB L400.3750 Negative High NITRITE UR Positive LAB L400.3780 Negative /ul High 25 OCCULT BLOOD-UR LAB L400.3800 Negative /ul High LEUK ESTERASE 500 LAB L400.4050 0-5 /hpf WBC Normal 50-100 SEEN LAB L400.4100 0-5 /hpf Normal RBC-UA 0-5 SEEN LAB L400.4150 5-10 /hpf SQUAM Normal EPI 5-10 SEEN LAB L400.4300 None Seen /hpf Normal BACTERIA RARE LAB L400.4350 <or=2+ /hpf 0 Normal MUCUS, URINE SEEN Performed By: #### L400.0001 #### [facility] [address] [place], [address] Observed: 03/10/2018 Status: F Source: [place] CULTURE, URINE 10:02 PM [facility] Urine Culture ORGANISM 1: Escherichia coli [place] Count >100,000 Escherichia coli: REACTION Amoxacillin/Clavulanic Acid $ <=2 S Ampicillin $ 4 S Ampicillin/Sulbactam $ <=2 S Cefazolin $ <=4 S Cefepime $ <=1 S Ceftriaxone $ <=1 S Ciprofloxacin $ <=0.25 S ESBL - Ertapenim $$$ <=0.5 S Gentamicin $ <=1 S Imipenem *NF <=0.25 S Levofloxacin $ <=0.12 S Nitrofurantoin $ <=16 S Piperacillin/Tazobactam $$ <=4 S Tobramycin $ <=1 S Trimethoprim/Sulfametho $ <=20 S (NF) indicates non-formulary drug at [facility]. Approval by Infectious Disease Specialist required before non-formulary drugs may be ordered and/or dispensed. Performed By: #### M100.0650 #### [facility] [address] [place], [place], [address] CNCO Observed: 02/28/2018 Status: COMPLETED Source: [place] 12:00 AM [facility] REPOSITORY Letter Text [facility] [address], [place] [address] 02/28/2018 To Whom It May Concern: This is to confirm that Keron Jackson had an appointment and was seen at the [facility] [place] [facility] in the Department of WEB SITE MANAGER by Oliva Norton CNM on 02/25/2018 and 01/27/2018 and that Zurdo Gage accompanied patient to her appointments. Sincerely, Oliva Norton CNM PROGRESS Observed: 02/25/2018 Status: COMPLETED Source: [place] 4:46 PM [facility] REPOSITORY HNO ID: [id number] Author: Kayla Dudley Service: (none) Author Type: Motor Vehicle Operator Road Supervisor Type: Progress Notes Filed: 02/25/2018 4:54 PM Note Text: CM - S: Keron Jackson presents with partner today for a routine OB visit at 16w2d. She denies LOF, VB, DFM or cramping/contractions. Patient denies any current drug use and has continued not to smoke cigarettes. Partner is supportive in patient's continued sobriety. O: See flow sheet Gen: A+O x 3, NAD Abd: NT x 4 quadrants, S=D Extremities: No edema noted in LE A/P: 16w2d IUP. Normal . RTO 4 Weeks for follow up. Call with LOF, VB, DFM or cramping/contractions. 1. Encounter for supervision of normal first in second trimester -Patient declines 2nd trimester quad genetic screen today - URINE OB DIP B/O 2. 16 weeks gestation of - anatomy survey ultrasound scheduled 03/25/18 - URINE OB DIP B/O Kayla Dudley APRN.CNM PROGRESS Observed: 01/27/2018 Status: COMPLETED Source: [place] 4:21 PM [facility] REPOSITORY HNO ID: [id number] Author: Umm Veronica Service: (none) Author Type: Physician Type: Progress Notes Filed: 01/27/2018 4:22 PM Note Text: A single intrauterine gestational sac is noted with a regular outline. There is no decidual hemorrhage. The yolk sac is visualized and shows normal shape and echogenicity. A living single fetus is noted. The heart rate is within normal range. The CRL corresponds to the gestational age. Estimated Date of Delivery: 08/10/18 EGA = 12w1d Negative NT screen for Trisomy 21. The sensitivity of nuchal translucency measurement for Trisomy 21 is ~60%. The anatomy appears normal in the areas visualized. RECOMMENDATIONS: - The patient requested the sequential screening. The test has been ordered - Ultrasound examination at 18 to 20 weeks CBC Collected: 01/27/2018 Status: F Source: [place] 3:42 PM [facility] REPOSITORY TYPE CODE TESTS RESULT OUT OF REFERENCE UNITS RANGE LAB WBC 3.70-11.00 k/uL WBC 8.71 LAB RBC 3.90-5.20 m/uL RBC 4.14 LAB HGB 11.5-15.5 g/dL Hemoglobin 12.9 LAB HCT 36.0-46.0 % Hematocrit 38.7 LAB MCV 80.0-100.0 fL MCV 93.5 LAB MCH 26.0-34.0 pG MCH 31.2 LAB MCHC 30.5-36.0 g/dL MCHC 33.3 LAB RDWCV 11.5-15.0 % RDW-CV 13.6 LAB PLTCT 150-400 k/uL Platelet Count 259 LAB MPV 9.0-12.7 fL MPV 10.8 LAB ABSNUC <0.01 k/uL Absolute nRBC <0.01 Performed By: #### CBC, CMP, SYPHGX, RUBIGG, SEQL1, HBSAG, HIV12C, HCQPCR #### [facility] [address] [place], [place] [address] COMP METABOLIC PANEL Collected: 01/27/2018 Status: F Source: [place] 3:42 PM [facility] REPOSITORY TYPE CODE TESTS RESULT OUT OF REFERENCE UNITS RANGE LAB TP 6.3-8.0 g/dL Protein, Total 6.7 LAB ALB 3.9-4.9 g/dL Albumin 4.2 LAB CA 8.5-10.2 mg/dL Calcium, Total 9.0 LAB TBIL 0.2-1.3 mg/dL Bilirubin, Total 0.3 LAB ALKP 32-117 U/L Alkaline Phosphatase 57 LAB AST 13-35 U/L AST 21 LAB GLU 74-99 mg/dL Glucose 82 Result Comment: The [place] Diabetes Association (ADA) provides guidance for cutoff values for fasting glucose and random glucose. The ADA defines fasting as no caloric intake for at least 8 hours. Fas ting plasma glucose results between 100 to 125 mg/dL indicate increased risk for diabetes (prediabetes). Fasting plasma glucose results greater than or equal to 126 mg/dL meet the criteria for diagnosis of diabetes. In the absence of unequivocal hyperglycemia, results should be confirmed by repeat testing. In a patient with classic symptoms of hyperglycemia or hyperglycemic crisis, random plasma glucose results greater than or equal to 200 mg/dL meet the criteria for diagnosis of diabetes. Reference: Standards of Medical Care in Diabetes 2016, [place] Diabetes Association. Diabetes Care. 2016.39(Suppl 1). LAB BUN 7-21 mg/dL BUN 8 LAB CRET 0.58-0.96 mg/dL Creatinine Low 0.39 LAB NA 136-144 mmol/L Sodium Low 135 LAB K 3.7-5.1 mmol/L Potassium 3.8 LAB CL 97-105 mmol/L Chloride 101 LAB CO2 22-30 mmol/L CO2 Low 18 LAB AGAP 9-18 mmol/L Anion Gap 16 LAB ALT 7-38 U/L ALT 16 LAB GFRAA eGFR- Amer. >60 LAB GFRNAA . eGFR-All Other Races >60 Result Comment: eGFR (Estimated GFR) Units of measure: mL/min/1.73 meters squared eGFR is derived from the reexpressed MDRD Study equation using the following parameters: serum creatinine, age, gender and race. The creatinine assay has been calibrated to be traceable to IDMS. An eGFR <60 mL/min/1.73m2 for >3 months is consistent with chronic kidney disease. Refer to KDOQI guidelines for clinical interpretation. In patients with unstable renal function, e.g. those with acute kidney injury, the eGFR may not accurately reflect actual GFR. Performed By: #### CBC, CMP, SYPHGX, RUBIGG, SEQL1, HBSAG, HIV12C, HCQPCR #### [facility] [address] [place] [address] SYPHILIS IGG WITH Collected: 01/27/2018 Status: F Source: [facility] 3:42 PM [facility] REPOSITORY TYPE CODE TESTS RESULT OUT OF REFERENCE UNITS RANGE LAB SYPHQL Nonreactive Syphilis IgG, Nonreactive Qual Result Comment: In conjunction with this result, the immune status of the patient should be evaluated based on their clinical status, related risk factors, and other diagnostic test results. LAB SYPHLG AI Syphilis IgG <0.2 Result Comment: Antibody index is interpreted as follows: Non reactive SPECIMENS <=0.8 Weak reactive SPECIMENS 0.9 to 5.9 Reactive SPECIMENS >=6.0 Performed By: #### CBC, CMP, SYPHGX, RUBIGG, SEQL1, HBSAG, HIV12C, HCQPCR #### [facility] [address] [place], [place] [address] RUBELLA IGG ANTIBODY Collected: 01/27/2018 Status: F Source: [place] 3:42 PM [facility] REPOSITORY TYPE CODE TESTS RESULT OUT OF RANGE REFERENCE UNITS LAB RUBGQL Negative Abnormal Rubella IgG Positive Alert Ab, Qual Result Comment: Sample is considered positive for IgG antibodies to rubella virus. A positive result indicates previous exposure to Rubella virus or vaccination. LAB RUBQNT Index Value Rubella IgG Ab 1.70 Result Comment: Index values are interpreted as follows: Negative specimens <0.90 Equivocol specimens 0.90 to 0.99 Positive specimens >0.99 The magnitude of the measured result is not indicative of the amount of antibody present. Performed By: #### CBC, CMP, SYPHGX, RUBIGG, SEQL1, HBSAG, HIV12C, HCQPCR #### [facility] [address], [place] [address] SEQUENT SCRN FIRST Collected: 01/27/2018 Status: F Source: [place] [facility] PATIENTS ONLY 3:42 PM [facility] REPOSITORY TYPE CODE TESTS RESULT OUT OF REFERENCE UNITS RANGE LAB SE1PAP MoM 1.43 SE1 AFTAB A LAB SE1HCG MoM 0.86 SE1 hCG LAB SE1INT Final result pending second Final trimester SE1 result pending sample Interp second trimester sample LAB SE1SDN SE1 Scrn <1:[id number] Rsk Dn Synd LAB SE1ADN 1:840 SE1 Age Rsk Dn Synd LAB SE1STR SE1 Scr <1:76206 Rsk Trsmy18 LAB SE1ATR SE1 Age 1:2500 Rsk Trsmy18 LAB SE1RS View Seq Scrn results in First Trim Scanned Documents link when available. LAB SEQLRV SEQ Staff Reviewed by Review [place]fe[place] PhD ([id number]) Performed By: #### CBC, CMP, SYPHGX, RUBIGG, SEQL1, HBSAG, HIV12C, HCQPCR #### [facility] [address], [place] [address] HEPATITIS B SURF. AG Collected: 01/27/2018 Status: F Source: [place] 3:42 PM [facility] REPOSITORY TYPE CODE TESTS RESULT OUT OF REFERENCE UNITS RANGE LAB HBSAG Negative Hepatitis B Negative Surf. Ag Performed By: #### CBC, CMP, SYPHGX, RUBIGG, SEQL1, HBSAG, HIV12C, HCQPCR #### [facility] [address] [address] HIV 12 COMBO (AG/AB) Collected: 01/27/2018 Status: F Source: [place] 3:42 PM [facility] REPOSITORY TYPE CODE TESTS RESULT OUT OF REFERENCE UNITS RANGE LAB HVAGAB Non Reactive HIV Non Reactive 12 Ag/Ab Result Comment: (NOTE) HIV Information: [place] Rev. Code 3701.243(E): This information has been disclosed to you from confidential records protected from disclosure by state law. You shall make no further disclosure of this information without the specific, written, and informed release of the individual to whom it pertains, or as otherwise permitted by state law. A general authorization for the release of medical or other information is not sufficient for the purpose of the release of HIV test results or diagnoses. Performed By: #### CBC, CMP, SYPHGX, RUBIGG, SEQL1, HBSAG, HIV12C, HCQPCR #### [address] [place] [address] [place] [phone] HEPATITIS C RNA Collected: 01/27/2018 Status: F Source: [place] 3:42 PM [facility] REPOSITORY TYPE CODE TESTS RESULT OUT OF REFERENCE UNITS RANGE LAB HCQPCR IU/mL Hepatitis C RNA HCV RNA not detected by PCR. Result Comment: Reference Range: Negative for HCV RNA The Linear Range of this assay is 15 IU/mL to 100,000,000 IU/mL. Performed By: #### CBC, CMP, SYPHGX, RUBIGG, SEQL1, HBSAG, HIV12C, HCQPCR #### [address] [place] [address] [place] [address] TYPE AND SCR,PRENATL Collected: 01/27/2018 Status: F Source: [place] 3:42 PM [facility] REPOSITORY TYPE CODE TESTS RESULT OUT OF REFERENCE UNITS RANGE LAB %ABR O ABO/RH(D) POSITIVE LAB % Antibody NEG Screen Performed By: #### TSPN #### [facility] [address] [place], [place] [address] CYSTIC FIBROSIS SCR Collected: 01/27/2018 Status: F Source: [place] 3:40 PM [facility] REPOSITORY TYPE CODE TESTS RESULT OUT OF REFERENCE UNITS RANGE LAB CFNGST CF [id number] (NOTE) Juan Manuel Report Result Comment: Performing Pathologist: Jeremy Bro M.D. RESULT: CFTR (RefSeq [id number]): No variant detected INTERPRETATION: The patient does not carry any of the 139 pathogenic genetic variants in the cystic fibrosis transmembrane regulator (CFTR) gene. A negative test result reduces the possibility that this individual is a carrier for cystic fibrosis (CF). However, this test does not detect all variants in the CFTR gene and it is possible that the patient could have a CFTR variant not included in this test. GUIDANCE: Cystic fibrosis (CF) is a multisystem genetic disease of sodium chloride transport that commonly involves the lungs, pancreas, intestines, liver, sweat glands and male reproductive system. CF is one of the most common inherited conditions among Caucasians and is diagnosed in approximately 1 in 3000 individuals in the [place] The condition is less common but occurs in all other racial and ethnic groups. CF has an autosomal recessive inheritance pattern and heterozygous carriers are unaffected. If both partners in a couple have a pathogenic variant, there is a 25% chance for a child to have CF. Genetic test results should be considered in the context of all relevant clinical information including patient phenotype, other laboratory results and family history. Genetic consultation may be beneficial for this individual and the family. Carrier Frequencies: : 1 in 28 Ashkenazi Jew: 1 in 29 : 1 in 59 : 1 in 70 : 1 in 84 : 1 in 91 : 1 in 242 METHOD: The Illumina Zebra ImagingDx Cystic Fibrosis 139-Variant Assay is a qualitative in vitro diagnostic system used to simultaneously detect 139 clinically relevant cystic fibrosis disease-causing mutations and variants of the cystic fibrosis transmembrane conductance regulator (CFTR) gene in genomic DNA isolated from human peripheral whole blood. The variants reported by the MiSeqDx Cystic Fibrosis 139-Variant Assay were specifically chosen because they represent the full set of clinically validated variants classified as CF- causing in the CFTR2 database at [facility], a product of the CFTR2 (Clinical and Functional Translation of CFTR) initiative. Briefly, multiplex short oligonucleotide primers are designed to hybridize to the genomic DNA regions of interests. Followed by primer extension and ligation, the ligation products are multiplex PCR amplified using primers that add index sequences for sample multiplexing, as well as common adapters required for cluster generation and sequencing on the MiSeqDx instrument. The MiSeq Synoptic Meteorologist processes base calls generated during primary analysis. Secondary analysis includes demultiplexing, FASTQ file generation, alignment, variant calling, and generation of variant-calling files (VCFs) containing information about CFTR variants found at specific positions in the reference genome. LIMITATIONS: The results should be used and interpreted in the context of a full clinical evaluation. The assay does not include all variants identified in the CFTR gene. Therefore, the failure to identify a variant does not guarantee that other CFTR variants are not present in the samples being analyzed. Variants identified by this assay vary in frequency among different populations. As with any hybridization-based assay, underlying variants in oligonucleotide-binding regions can affect the alleles being probed and, consequently, the calls made. The orientation of the PolyTG/PolyT variant, whether in cis/trans to the R117H variant, cannot be ascertained. PolyTG/PolyT are homopolymeric regions known to be difficult to interpret with sequence-based assays due to polymerase slippage. A 0.9% (4/448) miscall rate is reported for PolyTG/PolyT results. REFERENCES: [place] [employer]nec[employer] Committee on Genetics. ACOG committee opinion No. 486: Update on Carrier Screening for Cystic Fibrosis. Obstet Gynecol. 2011;117(4):4973-6498. Anish JL, Lucina Manzano M, Jerrell JOHN, Bill PM. Cystic Fibrosis: A worldwide analysis of CFTR mutations-correlation with incidence data and application to screening. 2002. Hum Mutat 19:575-606. Hernandez CLARK. Cystic fibrosis genetics: from molecular understanding to clinical application. Rosamaria Rev Berna. 2015;16(1):45-56. Bill PM, Viktoriya BJ, Cade TB, Maurisio FJ, Lynda C, Hernandez CLARK, Jimena AZ, Marielos CASTILLO, Lizandro J, Genevieve RB, MJ, Manuel, III, PW. Guidelines for diagnosis of cystic fibrosis in newborns through older adults: Cystic Fibrosis Foundation consensus report. JPediatr. 2008;153:S4-S14. Noé WW, Hernandez CLARK, Lindsey RUIZ, Srini COTA, Roger MARES, Kris JAIME. Laboratory standards and guidelines for population-based cystic fibrosis carrier screening. Berna Med 2001;3:149-54. Carlos A SM, Kaye JF, Gomez DL, Micheal E, Hernandez CLARK. CFTR-related disorders. Soraya RA, Connor TC, Blayne CR, Galdino Go, editors. Britt. [place] ([place]): [facility]; 2007. Available at www.ncbi.nlm.nih.gov/books/RYL1677. [Online] Updated Oct 25, 2007. Online Mendelian Inheritance in Man, OMIM. [facility], [place], [place]. Cystic fibrosis transmembrane conductance regulator; CFTR. KAUR Number: *[id number]: 06/05/2014: World Wide Web URL: http://omim.org/ The Clinical and Functional Translation of CFTR (CFTR2). Available at http://www.cftr2.org/ [Online] MS Roger, Hernandez CLARK, Kris JAIME, Demetrio RICKS, Lindsey Go, Lola M, Max GE, Eddie BW, Agatha VM, Aretha EM, Elkin CM, Srini COTA, Shubham DR, Noé WW. Cystic fibrosis population carrier screenin revision of [place] [employer] mutation panel. Berna Med. 2004;6:387-91. Performed By: #### CFNGS #### [facility] [address], [place] [address] Observed: 01/27/2018 Status: F Source: [place] URINE CULTURE 2:05 PM [facility] REPOSITORY Sp. Request/Comment: - Specimen received in preservative Culture Result - >=100,000 CFU/ml Escherichia coli --> ABNORMAL ALERT ORGANISM: Escherichia coli METHOD: Minimum inhibitory concentration(Vitek) Antibiotic Interp VENU Status Ampicillin SUSCEPTIBLE <=2 F Gentamicin SUSCEPTIBLE <=1 F Trimeth sulfameth SUSCEPTIBLE <=20 F Cefazolin SUSCEPTIBLE <=4 F CLSI breakpoints for therapy of uncomplicated UTI's due to E.coli, K.pneumoniae, and P.mirabilis were applied and may be used to predict the activity of oral agents(cefaclor, cefdinir, cefpodoxime, cefp rozil, cefuroxime, cephalexin, loracarbef). Ciprofloxacin SUSCEPTIBLE <=0.25 F Nitrofurantoin SUSCEPTIBLE <=16 F Cefepime SUSCEPTIBLE <=1 F Piperacillin/Tazobac SUSCEPTIBLE <=4 F Ampicillin Sulbact SUSCEPTIBLE <=2 F Ceftriaxone SUSCEPTIBLE <=1 F Meropenem SUSCEPTIBLE <=0.25 F Ertapenem SUSCEPTIBLE <=0.5 F Performed By: #### URCUL #### [address] [id number] [place] [address] Observed: 01/05/2018 Status: F Source: [place] TRICHOMONAS PREP 2:00 PM [facility] REPOSITORY Smear Result - Negative for Trichomonas vaginalis antigen This test was developed and its performance characteristics determined by [facility] [place] ([facility]). It has not been cleared or approved by the FDA. [facility] is regulated under CLIA as qualified to perform high-complexity testing. This test is used for clinical purposes. It should not be regarded as investigational or for research. Performed By: #### TRICHO #### [place] [id number] [place] [id number] Observed: 01/05/2018 Status: F Source: TROY BACT/CAND VAG GRM ST 2:00 PM [facility] REPOSITORY Smear Result - BACTERIAL VAGINOSIS RESULT: Stain results consistent with bacterial vaginosis. --> ABNORMAL ALERT Moderate --> ABNORMAL ALERT Yeast --> ABNORMAL ALERT Rare --> ABNORMAL ALERT Clue cells present --> ABNORMAL ALERT Performed By: #### BVCNSM #### [place] [id number] [place] [id number] Observed: 01/05/2018 Status: F Source: [place] URINE CULTURE 2:00 PM [facility] REPOSITORY Sp. Request/Comment: - Specimen received in preservative Culture Result - >=100,000 CFU/ml Escherichia coli --> ABNORMAL ALERT ORGANISM: Escherichia coli METHOD: Minimum inhibitory concentration(Vitek) Antibiotic Interp VENU Status Ampicillin SUSCEPTIBLE <=2 F Gentamicin SUSCEPTIBLE <=1 F Trimeth sulfameth SUSCEPTIBLE <=20 F Cefazolin SUSCEPTIBLE <=4 F CLSI breakpoints for therapy of uncomplicated UTI's due to E.coli, K.pneumoniae, and P.mirabilis were applied and may be used to predict the activity of oral agents(cefaclor, cefdinir, cefpodoxime, cefp rozil, cefuroxime, cephalexin, loracarbef). Ciprofloxacin SUSCEPTIBLE <=0.25 F Nitrofurantoin SUSCEPTIBLE <=16 F Cefepime SUSCEPTIBLE <=1 F Piperacillin/Tazobac SUSCEPTIBLE <=4 F Ampicillin Sulbact SUSCEPTIBLE <=2 F Ceftriaxone SUSCEPTIBLE <=1 F Meropenem SUSCEPTIBLE <=0.25 F Ertapenem SUSCEPTIBLE <=0.5 F Performed By: #### URCUL #### [facility] [address] [place], [place] [address] TOXICOLOGY SCREEN,UR Collected: 01/04/2018 Status: F Source: TROY 2:00 PM [facility] REPOSITORY TYPE CODE TESTS RESULT OUT OF REFERENCE UNITS RANGE LAB UPCP2 Negative Negative Phencyclidin e, Urine Result Comment: Cutoff threshold at 25 ng/mL. LAB UBENZ2 Negative Benzodiazepines, Ur Negative Result Comment: Cutoff threshold at 200 ng/mL. LAB UCOC2 Negative Cocaine, Negative Urine Result Comment: Cutoff threshold at 300 ng/mL. LAB UAMPH2 Negative Amphetamines, Urine Negative Result Comment: Cutoff threshold at 1000 ng/mL. LAB UTHC2 Negative Cannabinoids, Urine Negative Result Comment: Cutoff threshold at 50 ng/mL. LAB UOPI2 Negative Opiates, Negative Urine Result Comment: Cutoff threshold at 300 ng/mL. LAB UBARB2 Negative Barbiturates, Urine Negative Result Comment: Cutoff threshold at 200 ng/mL. LAB UETOH <11 mg/dL <11 Ethanol, Urine LAB UOXYC Negative Oxycodone, Negative Urine Result Comment: Cutoff threshold at 100 ng/mL. Comment: Immunoassay screen only. Cross reactivity with other substances can occur with immunoassay screening. Detection of any drug(s) in this urine toxicology panel is presumptive only. These tests are for med ical purposes only and should not be used for compliance monitoring, legal, or forensic use. In clinical settings, confirmatory testing is at the practitioner's discretion [1]. If clinically indicated, confirmation by high specificity, quantitative methodology may be requested on the same speci men through Client Services ([phone]) if contacted within 48 hours of initial testing. [1]Substance Abuse and Mental Health Services Administration (2012). Clinical Drug Testing in Primary Care Technical Assistance Publication Series 32. Department of Health and Human Services, [place], p.10. These tests were developed and their performance characteristics determined by [facility] [place] ( [facility]). They have not been cleared or a pproved by the FDA. [facility] is regulated under CLIA as qualified to perform high complexity testing. These tests are used for clinical purposes. They should not be regarded as investigational or for research. Performed By: #### UTOX2 #### [facility] [address] [place], [place] [address] PROGRESS Observed: 01/04/2018 Status: COMPLETED Source: [place] 1:19 PM [facility] REPOSITORY HNO ID: [id number] Author: Oliva Norton Service: (none) Author Type: Motor Vehicle Operator Road Supervisor Type: Progress Notes Filed: 01/04/2018 4:52 PM Note Text: INITIAL OB ASSESSMENT News Operations Manager offered: Patient declines. OB Provider: Oliva Norton CNM HPI: Keron Jackson is a 22 year old female here to establish Obstetrical Care. Patient's last menstrual period was 11/03/2017 (exact date). from OB Dating Form. Cycle length: 28 days Complaints: nausea and vomiting, twice a week, coping well and no weight loss. Keeping food and liquids down. was unplanned but accepted. Has been with [facility] for one year. Obstetric History T0 L0 SAB0 TAB0 Ectopic0 Multiple0 Live Births0 Prior : never History of 4th degree laceration: No Patient's Risk Screening for delivery: History of abnormal pap: No Prior treatment for cervical dysplasia: none. History of STDs: None Tobacco use: Yes, stopped on 12/25/17 with positive Caffeine use: Yes Drug use: No. 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 Nothing since. Did not do any rehab or follow up counseling. Stated she got away from the people that were influencing her. Alcohol use: No Multivitamin with Folic acid: yes Jew or heritage: No Would refuse blood transfusion if medically necessary: No BMI 17.12 kg/(m2) Patient BMI over 30? No Marital Status:Co-habitating Partner: Name: Zurdo Gage Age: 32 Occupation: Works at [employer] Gender: male History of STDs: None PAST MEDICAL HISTORY Diagnosis Date - Pyelonephritis 2017 No past surgical history on file. Current Outpatient Prescriptions on File Prior to Visit: Pvabhbzk-Pd-Uzz-Fe-FA ( VITAMIN) tab Take 1 tablet by mouth. No current facility-administered medications on file prior to visit. Review of Systems: GENERAL: Negative for: Fever or Chills HEENT: Negative for: Impaired Vision, Ringing in Ears, Nosebleeds. Getting headache daily, go away on their own, doesn't take anything for them. Has decreased caffeine intake. NECK: Negative for: Swelling, Pain, Stiffness RESPIRATORY: Negative for: Cough, Shortness of breath, Wheezing GASTROINTESTINAL: Negative for: Heartburn, Constipation, Diarrhea, Blood in stool, Vomiting MUSCULOSKELETAL: Negative for: Muscle or joint pain, stiffness, Joint swelling NEUROLOGIC/PSYCHIATRIC: Negative for: Weakness, Paralysis, Numbness, Tingling, Tremor, Anxiety, Depression, Memory loss SKIN: Negative for: Rash, Itching GENITOURINARY: Negative for: vaginal itching, vaginal discharge, hematuria or dysuria PHYSICAL EXAM: BP 104/56 Ht 5' 3.7 (1.62m) Wt 98 lb 12.8 oz (44.8kg) LMP 11/03/2017 BMI 17.12 kg/(m2). GENERAL: pleasant female in no apparent distress DERMATOLOGY: Normal, without lesions, non-icteric and non-hirsute NECK: Supple, full range of motion, no adenopathy and thyroid normal CHEST: Clear to auscultation Normal inspiratory effort Regular rate and rhythm No murmurs, clicks, rubs or gallops BREAST: soft, non-tender, symmetric, no dominant mass, normal nipple-areolar complex, no lymphadenopathy and no nipple discharge ABDOMEN: soft, non-tender and no masses NEURO: alert and oriented x3,exam grossly non-focal PELVIS: External genitalia normal without lesions. Perineal body intact. No vaginal or cervical lesions. Cervix closed. Uterus 8 week size. No adnexal masses or tenderness. Clinical Pelvimetry: Pelvimetry clinically assessed as adequate Limited OB ultrasound exam: single intrauterine , positive cardiac activity and crown-rump length 8w3d -3d from LMP ASSESSMENT: 22 year old at 8w6d gestational age PLAN: 1) Patient oriented to practice. Discussed nutrition, folic acid supplementation, dietary guidelines, exercise, smoking, alcohol, caffeine, and drug use. Discussed routine OB labs including STD/HIV. Discussed aneuploidy screening options including serum screening and nuchal translucency. Declines CF carrier screening discussed and accepted. 2) Underweight, discussed importance of adequate diet, no meal skipping, and appropriate weight gain. Patient denies any current or history of eating disorder. 3) Advised continued smoking cessation. 4) Advised continued cessation from drug abuse. Patient declines any counseling at this time. Reviewed risk of relapse and to notify us if any increased urge to use or call help line. Follow up in 4 weeks or sooner prn. ASSESSMENT CHAIRMAN & CO FOUNDER WSTRSBIRT Keron Jackson was given the 's screening tool. Keron answered as follows: OB Opioid Screening - Last Recorded (since 04/09/2017) Did any of your parents have a problem with alcohol or other drug use? (!) Yes (Mother with ETOH and Drug use) Does your partner have a problem with alcohol or other drug use? No In the past, have you had difficulties in your life because of alcohol or other drugs, including prescription medications? (!) Yes In the past month have you drunk any alcohol or used other drugs? No Are you taking medication for pain during the either prescribed or not? No Based on the screen and further questions, she is considered at moderate risk due to: High use in the past including recent treatment. Patient offered brief intervention, motivational interviewing, plan rescreen early third trimester and PRN In discussing this issue my medical advice was that Keron Jackson abstain. Her readiness to change(0 lowest - 10 highest) was 10. We discusssed her motivation to change based upon this response. Patient agreed that she would: abstain. Patient will return in 4 to discuss her progress with this plan. In total, 20 minutes of personal time was spent administering and interpreting the screen, plus performing a brief intervention. Oliva Norton APRN.NIRAV CNNURSE Observed: 01/04/2018 Status: COMPLETED Source: KITCHEN 11:00 AM [facility] REPOSITORY Nurse Visit (WOOB) KERON JACKSON ([id number]) 1995 F Date Time Provider Department 01/04/18 11:00 AM NURSE [facility] LOU MARTIN During your visit today, we recorded the following information about you: Last Period 11/03/17 Bereket Hannah RN 01/04/2018 11:31 AM Signed SEQUENTIAL SCREENINGS The [facility] offers sequential screenings for women who are interested in screenings for chromosomal abnormalities and certain defects during a . The sequential screen combines ultrasound and blood tests to determine the risk of chromosomal abnormalities, including Down's Syndrome (Trisomy 21) and Trisomy 18, as well as open neural tube defects including spina bifida. Ultrasound examination is performed between 11 weeks and 13 weeks gestational age. Blood tests are drawn after the ultrasound and again later in the between 15 and 21 weeks gestational age. Please let your physician know if you are interested in this testing. It will require an appointment with our centrifugal chiller technician. This is not an ultrasound performed by a physician in our office during a routine visit. SIGNS AND SYMPTOMS OF LABOR 1. Contractions every 10 minutes or more often 2. Clear, pink, or brownish fluid (water) leaking from vagina 3. Feeling that baby is pushing down, pressure 4. Low, dull backache 5. Cramps that feel like a period 6. Cramps with or without diarrhea If you notice any of the above symptoms, contact our office at [phone] and ask to speak with a nurse. After hours, you can call doctors registry at [phone] OR call [facility] at [phone] and ask to have the doctor aeronautics commission director paged. If you consider this an emergency, dial 9--1 or go to your nearest emergency department. Cord-Blood Banking Up until recently, the umbilical cord--along with the blood that remained in it after a baby was born and the cord cut--was simply discarded by the hospital. Then, in the late 1980s, researchers discovered that cord blood possessed unusual properties that made it useful in the treatment of patients with some cancers and other illnesses. While the actual process of collecting cord blood is straightforward, many parents are not even aware that this option now exists, much less familiar with all the issues involved. The case for saving your baby's cord blood The blood running back and forth between your baby and the placenta is full of immature cells called stem cells. Unlike embryonic stem cells, which have the ability to develop into any type of body cell, cord-blood stem cells already are locked into a certain, vital function: making all the different components of the blood, such as platelets, white blood cells, and red blood cells-serving, in effect, like bone marrow. When transfused into a patient whose own blood cells have faulty genetic coding or have been destroyed by chemotherapy or other cancer treatments, the cord-blood cells can implant themselves in the bone marrow and generate legions of new, healthy cells. These days, cord-blood transplants most commonly are used in cancer patients when a donor can't be found for a bone-marrow transplant. The treatment is particularly effective in young patients-the [facility] Cord Blood Bank reports a 70 percent success rate in children, but only 20 to 40 percent in adults. Researchers envision improving those odds and see many future applications as well, such as curing sickle cell disease and other blood-related genetic illnesses. So there is a possibility that your child, or someone else, may need these super-healthy and versatile cells one day. The drawbacks Aside from not knowing about this medical option, the main reason most people do not save their baby's stem cells is cost. In a private blood bank, the initial costs run from $275 to $1,500. Most also charge a yearly storage fee of $50 to $95. The advantage of using a private bank is that your sample is saved for only you to use. An alternative to private banking Public cord-blood jason are an alternative. These cost no money to use, but your sample is not specifically saved for you. Another person with a more immediate need may use it. If the time should come that you need stem cells, yours may still be available, or you may use donations from other people without charge. You also can direct your sample to go to a relative with an immediate need if the blood type matches. Anyone else needing to use stem cells from a public bank who has not been a donor must pay for it, sometimes tens of thousands of dollars. Will my family benefit from saving stem cells? Right now, situations in which stem cells would be helpful are quite rare. As mentioned earlier, stem-cell transplants are most commonly used for rare genetic conditions and for some types of cancer, including leukemia and lymphoma. And even with these present uses, many questions remain. In cancer treatment, for example, some researchers are concerned about the wisdom of transplanting back into the child the same cells that already showed a propensity to become malignant. Doctors also aren't sure if the number of cells taken at the time of would be enough to treat a full-grown 16-year-old. It is also not completely clear how active the cells would be after years of being stored. The treatment is so new and rare, we just don't have the data yet to resolve these important issues. What do the experts say? The [place] [employer] encourages philanthropic blood banking in public jason, but only for families with a current or potential need. Blood-bank proponents encourage any kind of banking, pointing out that research is getting closer and closer to many diverse, live-saving applications. How do I decide? Each family must weigh the pros and cons for themselves. Some families say that any cost is worth their peace of mind. Others say that in the face of uncertainty about the effectiveness of the treatment, they will use their resources elsewhere. Some choose the middle ground of donating publicly, knowing that their sample might benefit another family, if not themselves. For more information, ask your doctor or nurse, and be sure to check out our article on the technical aspects of cord-blood banking. Technical Aspects of Cord-Blood Banking If you are interested in storing your baby's umbilical-cord blood because of its possible use in emerging medical treatments, you must make arrangements with a blood bank before your child is born. The collection procedure is quite simple: After delivery of the baby, the umbilical cord is clamped and cut in the usual way. The blood that remains in the umbilical-cord vessels is then collected in sterile containers. The blood may be removed from the cord with a large needle or allowed to flow freely, depending on the company's collection system. The containers may look like large test tubes or like the plastic bags used in a blood bank. It does not cause the mother or the baby any pain to collect the blood, and no blood is taken that the baby needs at the moment. The nurse, account resolution specialist, or physician will then label the samples, check them over with you, and package them for a special pickup arranged with a commercial carrier. When the blood arrives at the blood-bank facility, it is processed and the parents are notified. It is then kept in an advanced storage system for years. How do I know that my sample is safe? Power outages and bankruptcies potentially could threaten any organization, but so far none have been reported. It is to be hoped that the scientists in these jason would arrange for safe transfer to another facility if the need arose. YOU MUST MAKE ARRANGEMENTS AHEAD OF TIME! Public cord-blood jason--DONATION: [employer] [phone] [facility]'s Placental Blood Program, [facility] Umbilical Cord Blood Bank, Private cord-blood jason--SAVING FOR YOUR OWN USE: [employer], (I think this is the least expensive) [employer] [phone] [employer], [phone]) [facility], [phone] Cells, [phone] [place] [facility], Cord Blood Registry, [phone]) CORDBLOOD [employer], An Internet search may provide you with additional listings. Referring Provider: SELF [200] Allergies As of Date: 01/04/2018 (No Known Allergies) Date Reviewed: 01/04/2018 Reviewed by: Oliva Norton - Fully Assessed Reason for Visit: Care [86] Cmt: Pre-New OB Primary Visit Diagnosis:Supervision of normal first , antepartum [Z34.00] Other Visit Diagnosis:Quit smoking [Z87.891] Order(s):JAVY PT ED WEB SITE MANAGER [] Order #: [id number]: 1 FUTURE JAVY PT ED ANESTHESIA [[id number]] Order #: [id number]: 1 FUTURE JAVY PT ED WEB SITE MANAGER [] Order #: [id number]: 1 FUTURE JAVY WHAT TO EXPECT DURING YOUR HOSPITAL STAY [] Order #: [id number]: 1 FUTURE JAVY PT ED WEB SITE MANAGER [] Order #: [id number]: 1 FUTURE JAVY PT ED WEB SITE MANAGER [] Order #: [id number]: 1 FUTURE JAVY PT ED WEB SITE MANAGER [] Order #: [id number]: 1 FUTURE JAVY PT ED WEB SITE MANAGER [] Order #: [id number]. #:[id number]: 1 JAVY PT ED ANESTHESIA [[id number]] Order #: [id number]. #:[id number]: 1 JAVY PT ED WEB SITE MANAGER [] Order #: [id number]. #:[id number]: 1 JAVY WHAT TO EXPECT DURING YOUR HOSPITAL STAY [] Order #: [id number]. #:[id number]: 1 JAVY PT ED WEB SITE MANAGER [] Order #: [id number]. #:[id number]: 1 JAVY PT ED WEB SITE MANAGER [] Order #: [id number]. #:[id number]: 1 JAVY PT ED WEB SITE MANAGER [] Order #: [id number]. #:[id number]: 1 Prescriptions as of 01/04/2018 Sig: VITAMIN,CALCIUM,MINE* Take 1 tablet by mouth. Problem List As Of Date 01/04/2018 Noted Resolved Quit smoking [Z87.891] INVALID FOR* More... Other instructions from your clinician: SEQUENTIAL SCREENINGS The [facility] offers sequential screenings for women who are interested in screenings for chromosomal abnormalities and certain defects during a . The sequential screen combines ultrasound and blood tests to determine the risk of chromosomal abnormalities, including Down's Syndrome (Trisomy 21) and Trisomy 18, as well as open neural tube defects including spina bifida. Ultrasound examination is performed between 11 weeks and 13 weeks gestational age. Blood tests are drawn after the ultrasound and again later in the between 15 and 21 weeks gestational age. Please let your physician know if you are interested in this testing. It will require an appointment with our centrifugal chiller technician. This is not an ultrasound performed by a physician in our office during a routine visit. SIGNS AND SYMPTOMS OF LABOR 1. Contractions every 10 minutes or more often 2. Clear, pink, or brownish fluid (water) leaking from vagina 3. Feeling that baby is pushing down, pressure 4. Low, dull backache 5. Cramps that feel like a period 6. Cramps with or without diarrhea If you notice any of the above symptoms, contact our office at [phone] and ask to speak with a nurse. After hours, you can call doctors registry at [phone] OR call [facility] at [phone] and ask to have the doctor aeronautics commission director paged. If you consider this an emergency, dial 9--1 or go to your nearest emergency department. Cord-Blood Banking Up until recently, the umbilical cord--along with the blood that remained in it after a baby was born and the cord cut--was simply discarded by the hospital. Then, in the late 1980s, researchers discovered that cord blood possessed unusual properties that made it useful in the treatment of patients with some cancers and other illnesses. While the actual process of collecting cord blood is straightforward, many parents are not even aware that this option now exists, much less familiar with all the issues involved. The case for saving your baby's cord blood The blood running back and forth between your baby and the placenta is full of immature cells called stem cells. Unlike embryonic stem cells, which have the ability to develop into any type of body cell, cord-blood stem cells already are locked into a certain, vital function: making all the different components of the blood, such as platelets, white blood cells, and red blood cells-serving, in effect, like bone marrow. When transfused into a patient whose own blood cells have faulty genetic coding or have been destroyed by chemotherapy or other cancer treatments, the cord-blood cells can implant themselves in the bone marrow and generate legions of new, healthy cells. These days, cord-blood transplants most commonly are used in cancer patients when a donor can't be found for a bone-marrow transplant. The treatment is particularly effective in young patients- the [facility] Cord Blood [facility] reports a 70 percent success rate in children, but only 20 to 40 percent in adults. Researchers envision improving those odds and see many future applications as well, such as curing sickle cell disease and other blood-related genetic illnesses. So there is a possibility that your child, or someone else, may need these super-healthy and versatile cells one day. The drawbacks Aside from not knowing about this medical option, the main reason most people do not save their baby's stem cells is cost. In a private blood bank, the initial costs run from $275 to $1,500. Most also charge a yearly storage fee of $50 to $95. The advantage of using a private bank is that your sample is saved for only you to use. An alternative to private banking Public cord-blood jason are an alternative. These cost no money to use, but your sample is not specifically saved for you. Another person with a more immediate need may use it. If the time should come that you need stem cells, yours may still be available, or you may use donations from other people without charge. You also can direct your sample to go to a relative with an immediate need if the blood type matches. Anyone else needing to use stem cells from a public bank who has not been a donor must pay for it, sometimes tens of thousands of dollars. Will my family benefit from saving stem cells? Right now, situations in which stem cells would be helpful are quite rare. As mentioned earlier, stem-cell transplants are most commonly used for rare genetic conditions and for some types of cancer, including leukemia and lymphoma. And even with these present uses, many questions remain. In cancer treatment, for example, some researchers are concerned about the wisdom of transplanting back into the child the same cells that already showed a propensity to become malignant. Doctors also aren't sure if the number of cells taken at the time of would be enough to treat a full-grown 16-year-old. It is also not completely clear how active the cells would be after years of being stored. The treatment is so new and rare, we just don't have the data yet to resolve these important issues. What do the experts say? The [place] [employer] encourages philanthropic blood banking in public jason, but only for families with a current or potential need. Blood-bank proponents encourage any kind of banking, pointing out that research is getting closer and closer to many diverse, live-saving applications. How do I decide? Each family must weigh the pros and cons for themselves. Some families say that any cost is worth their peace of mind. Others say that in the face of uncertainty about the effectiveness of the treatment, they will use their resources elsewhere. Some choose the middle ground of donating publicly, knowing that their sample might benefit another family, if not themselves. For more information, ask your doctor or nurse, and be sure to check out our article on the technical aspects of cord-blood banking. Technical Aspects of Cord-Blood Banking If you are interested in storing your baby's umbilical- cord blood because of its possible use in emerging medical treatments, you must make arrangements with a blood bank before your child is born. The collection procedure is quite simple: After delivery of the baby, the umbilical cord is clamped and cut in the usual way. The blood that remains in the umbilical-cord vessels is then collected in sterile containers. The blood may be removed from the cord with a large needle or allowed to flow freely, depending on the company's collection system. The containers may look like large test tubes or like the plastic bags used in a blood bank. It does not cause the mother or the baby any pain to collect the blood, and no blood is taken that the baby needs at the moment. The nurse, account resolution specialist, or physician will then label the samples, check them over with you, and package them for a special pickup arranged with a commercial carrier. When the blood arrives at the blood- bank facility, it is processed and the parents are notified. It is then kept in an advanced storage system for years. How do I know that my sample is safe? Power outages and bankruptcies potentially could threaten any organization, but so far none have been reported. It is to be hoped that the scientists in these jason would arrange for safe transfer to another facility if the need arose. YOU MUST MAKE ARRANGEMENTS AHEAD OF TIME! Public cord-blood jason--DONATION: [employer] [phone] [facility]'s Placental Blood Program, [facility] Umbilical Cord Blood Bank, Private cord-blood jason--SAVING FOR YOUR OWN USE: [employer], (I think this is the least expensive) [employer] [phone] [employer], (940) [employer] [facility], [phone], [phone] [place] [facility], Cord Blood [facility], (018) [employer], An Internet search may provide you with additional listings. Disposition: Return for New OB with Oliva Norton. Follow-up and Disposition History Recorded Letter Text Dear Keron Jackson: How to activate your [facility] [employer] Account 1. Visit the [employer] Signup page at [email or web address] 2. Identify yourself using your one-time use activation code: [email or web address] 3. Follow the on-screen prompts to choose your own secure username and password The following information will be necessary to access your account for the first time: Information needed for sign-up: Your custom activation code used one-time only for the initial account set-up. Your date of The last 4 digits of your social security number What to do next: Fill in the requested information on the Identify Yourself Form at [email or web address] , click Next. Create your login and password, choose a [employer] ID and password that will be easy for you to use, but impossible for anyone else to guess. Pick a security question that will assist you in the event you forget your password the next time you log-on. If you have difficulty activating your account, please call our [employer] helpline at [phone] or toll free at . We hope you enjoy using [employer]! Kindest Regards, [facility] [employer] Team Encounter Status:Closed by BEREKET HANNAH RN on 01/04/18 GC/CHLAMYDIA AMPLIF Collected: 01/04/2018 Status: F Source: [facility] 5:12 AM [facility] REPOSITORY TYPE CODE TESTS RESULT OUT OF REFERENCE UNITS RANGE LAB GCCTSR GC/Chlam Amp Cervix Source LAB GCAMPL GC Negative Amplification for Neisseria gonorrhoeae by amplification. LAB CLAMPL Chlamydia Negative Amplif for Chlamydia trachomatis by amplification. Performed By: #### GCCT #### [facility] [address] [place], [place] [address] ALLERGIES ALLERGIES DATE TYPE / CODE NAME / CODE REACTION SEVERITY SOURCE 08/12/2018 Drug No Known Unknown [facility] Allergy/416 Allergies/Y07144 Hospital 355222(SNOM 0388(RXNORM) Repository ED CT) Drug NO KNOWN [facility] Class/03155 ALLERGIES Main [place] 1003(SNOMED Repository CT) ENCOUNTERS ENCOUNTERS ADMIT/DISCHARGE ACCOUNT ADMITTING ENCOUNTER LOCATION SOURCE NUMBER CLASS 08/14/2018/08/17/20 [id number] Lola Fish Inpatient [place] [address] Encounter [facility] ing:WPRoom: Repository AH652Qso: 1 08/12/2018/08/12/20 [id number] Ambulatory [address] ing:WPOUTRoom Repository : WP018 08/11/2018/08/12/20 [id number] Ambulatory [address] Repository 08/04/2018/08/05/20 [id number] Ambulatory [address] Repository 08/04/2018/08/04/20 [id number] Ambulatory [address] ing:WPOUTRoom Repository : WP014 07/29/2018/08/01/20 [id number] Ambulatory [address] Repository 07/20/2018/07/21/20 [id number] Ambulatory [address] Repository 07/18/2018/07/18/20 [id number] Ambulatory [address] ing:WPOUTRoom Repository : WP011 07/06/2018/07/07/20 [id number] Ambulatory [address] Repository 06/23/2018/06/24/20 [id number] Ambulatory [address] Repository 06/07/2018/06/10/20 [id number] Ambulatory [address] Main [place] Repository 05/10/2018/05/10/20 [id number] Ambulatory [address] Repository 05/10/2018/05/12/20 [id number] Ambulatory [address] Main [place] Repository 04/11/2018/04/12/20 [id number] Ambulatory [address] Repository 04/01/2018/04/02/20 [id number] Lola Fish Ambulatory [address] ing:JT1Kbpo: Repository [id number]: 1 03/28/2018/03/29/20 [id number] Ambulatory [address] Repository 03/25/2018/03/28/20 [id number] Ambulatory [address] Repository 03/10/2018/03/10/20 [id number] Emergency [address] ing:ED Repository 02/25/2018/02/29/20 [id number] Ambulatory [address] Repository 01/27/2018/01/28/20 [id number] Ambulatory [address] Repository 01/27/2018/02/03/20 [id number] Ambulatory [address] Repository 01/27/2018/01/29/20 [id number] Ambulatory [address] Repository 01/04/2018 [id number] Ambulatory [facility] Repository 01/04/2018/01/06/20 [id number] Ambulatory [address] Repository PAYERS PAYERS ENCOUNTER GUARANTOR PAYER SUBSCRIBER SOURCE 08/14/2018 KERON RANDI Primary KERON RANDI Zafar [id number] TR Insurance:CARESOURCEP CORNDOB: [address] Number: [id number] [address]Kdg: [phone] [id number] Repository [phone] () Date:2018-08-14 [address]ATTN: [place] [address]PT: 08/14/2018 Secondary NOT GIVENUNK [place] Insurance:SELF PAY [facility] Number: Effective Repository Date:2018-08-14 08/12/2018 KERON RANDI Primary KERON RANDI Zafar [id number] TR Insurance:CARESOURCEP CORNDOB: [address] Number: [id number] [address]Yfg: [phone] [id number] Repository [phone] () Date:2018-08-12[address]ATTN: [place] [address]IR: 08/12/2018 Secondary NOT GIVENUNK [place] Insurance:SELF PAY [facility] Number: Effective Repository Date:2018-08-12 08/04/2018 KERON RANDI Primary KERON RANDI [place] [id number] TR Insurance:CARESOURCEP [place]: [address] Number: [id number] [address]Wro: [phone] [id number] Repository [phone] () Date:2018-08-04P [address]ATTN: [place] [address]CT: 08/04/2018 Secondary NOT GIVENUNK Zafar Insurance:SELF PAY [facility] Number: Effective Repository Date:2018-08-04 07/18/2018 KERON RANDI Primary KERON RANDI Zafar [id number] TR Insurance:CARESOURCEP [place]: [address] Number: [id number] [address]Gvu: [id number] Repository [phone] () Date:2018-07-18 [address]ATTN: [place] [address]UL: 07/18/2018 Secondary NOT GIVENUNK [place] Insurance:SELF PAY [facility] Number: Effective Repository Date:2018-07-18 04/01/2018 KERON RANDI Primary KERON RANDI Zafar [id number] TR Insurance:CARESOURCEP [place]: [address] Number: [id number] [address]Zhs: [phone] [id number] Repository [phone] () Date:2018-04-01P [address]ATTN: [place] [address]GF: 04/01/2018 Secondary NOT GIVENUNK [place] Insurance:SELF PAY [facility] Number: Effective Repository Date:2018-04-01 03/10/2018 KERON BRYAN Primary KERON BRYAN Zafar [id number] TR [facility] [address] Number: [id number] Hospital [address]Twx: [phone] [id number] Repository [phone] () Date:2018-03-10P [address]ATTN: [place] [address]JM: 03/10/2018 Secondary NOT GIVENUNK [place] Insurance:SELF PAY [facility] Number: Effective Repository Date:2018-03-10
== END 2018-08-04 05:30 | disposition home or self-care (01) ==
LOC: OBS 03:25 → WP 03:25
PROVIDERS: Visit Provider Obstetrics & Gynecology
DX: O47.1 False labor at or after 37 completed weeks of gestation (principal); Z3A.39 39 weeks gestation of pregnancy
CPT/HCPCS: 96360; 36415; 59050; 80307; 81001; 85025; 87086; 99218; G0378

== ENCOUNTER 2018-08-12 11:45 | Outpatient (CLI) | payer MEDICAID, SELFPAY ==
[2018-08-12 12:18] VITALS: BMI 25.5
[2018-08-12 12:51] LABS: ROM Internal Control Test YES-OK TO RESULT pt. (Internal QC); ROM Patient Test Negative (Negative)
--- NOTE | 2018-08-12 13:15 | OB.TRI.NOTE ---
History of Present Illness Date of Service: 08/12/18 Was patient seen by the physician?: No Reason For Visit: R/O LABOR Date of Service: 08/12/18 Final SAUL: 08/10/18 Gestational age: 40 Weeks and 2 Days Allergies No Known Allergies Allergy (Verified 08/12/18 12:19) - Pertinent Past Medical History Medical History: Past Medical History (Last Updated 04/01/18 @ 08:33 by Vince Vasquez) Pyelonephritis affecting Laboratory Studies: Laboratory Tests 08/12/18 Range/Units 12:15 Vag Amniotic Fld Detect Negative (Negative) NST - FHR Rate Baby A Baseline: 140 Variability:: Moderate Accelerations:: 15 x 15 Decelerations:: None NST Reactive:: Yes Uterine Activity:: irregular Impression/Plan Reactive NST for false labor
== END 2018-08-12 13:05 | disposition home or self-care (01) ==
LOC: WPOUT 12:13 → WP 12:14
PROVIDERS: Referring Provider Obstetrics & Gynecology; Visit Provider Obstetrics & Gynecology
DX: O47.1 False labor at or after 37 completed weeks of gestation (principal); Z3A.40 40 weeks gestation of pregnancy
CPT/HCPCS: 59025; 59050; 84112; 99218; G0378

== ENCOUNTER 2018-08-14 15:25 | Inpatient (IN) | payer MEDICAID, SELFPAY ==
[2018-08-14 14:48] VITALS: BMI 26.2
[2018-08-14 15:21] LABS: ROM Internal Control Test YES-OK TO RESULT pt. (Internal QC)
[2018-08-14 15:22] LABS: ROM Patient Test POSITIVE (Negative); Record Kit Lot#, ROM+ 7715
[2018-08-14] MEDS: Lactated Ringers 1,000 ML 50 ML IV ×3 (15:50→22:50)
[2018-08-14 16:05] LABS: Hematocrit 39.8 % (37-47); Hemoglobin 13.3 g/dl (12.0-15.0); Mean Corp Hgb Conc 33.4 g/gl (32-36); Mean Corpuscular Hgb 31.1 pg (27.0-32.0); Mean Corpuscular Volume 93.2 fL (81-99); Platelet Count 184 K/mm3 (150-450); RBC Distribution Width CV 13.1 % (11.6-14.6); RBC Distribution Width SD 44.2 fl (35.1-43.9); Red Blood Count 4.27 M/mm3 (4.2-5.4); White Blood Count 8.2 K/mm3 (4.4-11.0)
[2018-08-14 16:07] LABS: Scan Indicated on CBC? Y/N NO
[2018-08-14 16:46] LABS: Amphetamine Urine VISTA NEGATIVE (<1000 ng/mL); Barbiturate Urine VISTA NEGATIVE (< 200 ng/mL); Benzodiazepine Urine VISTA NEGATIVE (< 200 ng/mL); Cocaine Urine VISTA NEGATIVE (< 300 ng/mL); Ecstacy Urine VISTA NEGATIVE (< 500 ng/mL); Methadone Urine VISTA NEGATIVE (< 300 ng/mL); PCP Urine VISTA NEGATIVE (< 25 ng/mL); THC Urine VISTA NEGATIVE (< 50 ng/mL); Vista UDS pH Range 7
--- NOTE | 2018-08-14 18:49 | PCM.HP.OB ---
History Date of Admission: 04/01/18 History of this : This is a 22 year-old, G [], P [], at 40 weeks gestational age. Medical History: Medical History (Last Updated 04/01/18 @ 08:33 by Vince Vasquez) Pyelonephritis affecting O23.00 Allergies No Known Allergies Allergy (Verified 08/12/18 12:19) Home Medications: Home Medications Vit No.130/Iron/Folic [ Tablet] 1 each PO DAILY 04/01/18 Ferrous Sulfate 325 mg PO BIDCM 07/18/18 Nitrofurantoin Monohyd/M-Cryst [Macrobid 100 mg Capsule] 100 mg PO DAILY 07/18/18 Smoking Status: Former smoker Substance Use Type: Methamphetamine Number of Fetus(es): 1 Heart Tracin's with moderate variability, accels, mild variables. Periods of indeterminite baseline TOCO Analysis: irregular History Past Pregnancies: Past Pregnancies Delivery Date Name GA/Weeks Outcome Route Weight Gender Labor Length Anesthesia Delivery Location Provider FOB Labs: See [facility] H&P Physical Exam General: Alert, Oriented x3 Abdomen: Soft, Non Tender, Non-Distended, Gravid Cervix Dilation (cm): 3 Station: -1 Effacement (%): 90 Assessment/Plan All Active Problems (Last Updated 04/01/18 @ 08:33 by Vince Vasquez) Pyelonephritis affecting in second trimester (Acute) Cramping affecting , antepartum (Acute) This is a 22 year-old, at 40&4 weeks gestational age. Admit to L&D SROM - start pitocin to induce labor GBS negative FWB - tachycardic but overall reassuring. EFM reviewed with nursing staff. FSE placed. Pain - epidural as desired EFW less than 4500g, adequate pelvis Routine care
[2018-08-14] MEDS: Oxytocin 30 units/NS 500 ml 30 UNITS/500 ML IV.SOLN IV (18:51)
--- NOTE | 2018-08-15 00:37 | PCM.OB.VAG ---
Vaginal Delivery Maternal Presentation: Spontaneous Rupture of Membranes Amniotic Membrane Rupture Type: Spontaneous at home Amniotic Fluid Description: Clear Final SAUL: 08/10/18 Gestational age: 40 Weeks and 5 Days Date of Procedure: 08/15/18 Pre-Operative Diagnosis: SROM Post-Operative Diagnosis: SROM Surgery/ Procedure Performed: Spontaneous Vaginal Delivery Type of Anesthesia: Epidural Description of Procedure: Patient prepped & draped when c/c/+3. She pushed to deliver head. head gently guided to allow delivery of anterior & posterior shoulders. No excess traction placed on head. Body easily followed & placed on maternal abdomen. 3VC clamped & cut in delayed fashion. Placenta delivered with gentle traction and good uterine tone obtained. Presentation: SARA Placental Delivery Description: Expressed Placenta Disposition: [facility] Cord Vessel Description: 3 Vessels Cord Gases drawn per routine: ABG, VBG Cord Entanglement: Around neck x 1, loose Estimated Blood Loss: 300ml Infant A gender: Male (1 minute): 8 (5 minute): 9 Episiotomy Description: None Laceration: 2nd degree Medications given after delivery: IV Pitocin Complications: None
[2018-08-15] MEDS: Oxytocin 30 units/NS 500 ml 30 UNITS/500 ML IV.SOLN 334 UNITS IV (01:45)
[2018-08-15] MEDS: Oxytocin 30 units/NS 500 ml 30 UNITS/500 ML IV.SOLN 167 UNITS IV (02:15)
[2018-08-15 05:52] VITALS: BP 112/61; PULSE 102; RESP 18; TEMP 36.6
[2018-08-15 08:00] VITALS: BP 99/64; PULSE 90; RESP 16; TEMP 36.9
[2018-08-15 12:27] VITALS: BP 118/71; PULSE 106; RESP 16; TEMP 36.9
[2018-08-15 16:00] VITALS: BP 110/66; PULSE 120; RESP 16; TEMP 36.6
[2018-08-15 20:10] VITALS: BP 103/64; PULSE 100; RESP 16; TEMP 36.4; O2SAT 98
[2018-08-16 02:00] VITALS: BP 90/49; PULSE 90; RESP 16; TEMP 36.4; O2SAT 98
--- NOTE | 2018-08-16 07:54 | PCM.PN.OB ---
Subjective: No complaints - Physical Exam General: Alert, Oriented x3 Abdomen: Soft, Non Tender, Non-Distended - ff mid & below umb Extremities: No Calf Tenderness Vital Signs Temp Pulse Resp BP Pulse Ox 97.6 F L 90 16 90/49 L 98 08/16/18 02:00 08/16/18 02:00 08/16/18 02:00 08/16/18 02:00 08/16/18 02:00 Oxygen Delivery Method Room Air Weight: 147 lb 11.355 oz Body Mass Index (BMI) 26.2 Intake and Output for Last 24 Hours 08/14/18 08/15/18 08/16/18 23:59 23:59 23:59 Intake Total 1300 / 1300 Output Total 650 / 650 500 / 500 Balance 650 / 650 -500 / -500 Medical Necessity - Tobacco Use Smoking Status: Former smoker Assessment/Plan All Active Problems (Last Updated 04/01/18 @ 08:33 by Vince Vasquez) Pyelonephritis affecting in second trimester (Acute) Cramping affecting , antepartum (Acute) PPD#1 Routine care
--- NOTE | 2018-08-16 07:56 | PCM.DCVAG ---
Discharge Diet: No Restrictions Discharge Activity: May Drive, May Shower May resume sexual activity in: 4-6 weeks Weight Bearing Status: Weight bearing as tolerated Additional Instructions: If you experience any of the following, contact your healthcare provider. Bleeding that soaks a pad every hour for 2 hours Fever 100.4 or higher Unrelieved incision or abdominal pain Swelling, redness, discharge or bleeding from your incision or episiotomy site Your incision begins to separate Problems urinating (including inability to urinate or burning while urinating). Visual changes Severe headache Flu-like symptoms Pain or redness in one of both of your breasts Pain, warmth, tenderness or swelling in your legs, especially the calf area Frequent nausea and vomiting Symptoms of depression or anxiety If you experience any of the following, call 911 or go to the nearest Emergency Room. Chest pain Problems breathing Seizure activity Partial or complete paralysis of a body part, slurred speech, weakness or drooping of the face, or a sudden inability to walk or hold your balance Allergies/Adverse Reactions: Allergies No Known Allergies Allergy (Verified 08/12/18 12:19) Medications to take at Discharge Vit No.130/Iron/Folic [ Tablet] 1 each PO DAILY 04/01/18 Primary Care Physician: Care Physician,No Primary [Primary Care Provider] - Test Results: Test results from this visit will be discussed in further detail at your follow-up appointment, if applicable.
--- NOTE | 2018-08-16 07:57 | DCINST_ITS ---
Discharge Diet: No Restrictions Discharge Activity: May Drive, May Shower May resume sexual activity in: 4-6 weeks Weight Bearing Status: Weight bearing as tolerated Additional Instructions: If you experience any of the following, contact your healthcare provider. * Bleeding that soaks a pad every hour for 2 hours * Fever 100.4 or higher * Unrelieved incision or abdominal pain * Swelling, redness, discharge or bleeding from your incision or episiotomy site * Your incision begins to separate * Problems urinating (including inability to urinate or burning while urinating). * Visual changes * Severe headache * Flu-like symptoms * Pain or redness in one of both of your breasts * Pain, warmth, tenderness or swelling in your legs, especially the calf area * Frequent nausea and vomiting * Symptoms of depression or anxiety If you experience any of the following, call 911 or go to the nearest Emergency Room. * Chest pain * Problems breathing * Seizure activity * Partial or complete paralysis of a body part, slurred speech, weakness or drooping of the face, or a sudden inability to walk or hold your balance Allergies/Adverse Reactions: Allergies No Known Allergies Allergy (Verified 08/12/18 12:19) Medications to take at Discharge Vit No.130/Iron/Folic [ Tablet] 1 each PO DAILY 04/01/18 Primary Care Physician: Care Physician,No Primary [Primary Care Provider] - Test Results: Test results from this visit will be discussed in further detail at your follow- up appointment, if applicable.
[2018-08-16 08:00] VITALS: BP 112/64; PULSE 108; RESP 16; TEMP 36.2
[2018-08-16 14:00] VITALS: BP 102/59; PULSE 104; RESP 16; TEMP 36.4
[2018-08-16 20:20] VITALS: BP 109/64; PULSE 102; RESP 18; TEMP 36.3; O2SAT 98
[2018-08-17] MEDS: Ibuprofen 600 MG Tablet PO ×2 (01:26→09:49)
[2018-08-17 02:00] VITALS: BP 95/69; PULSE 80; RESP 16; TEMP 36.3
[2018-08-17 08:00] VITALS: BP 130/70; PULSE 98; RESP 20; TEMP 36.4
--- NOTE | 2018-08-17 08:30 | PN.OBGYN_ITS ---
Subjective: Patient sitting up in bed reporting no issues at this time. Patient has attempted to breastfeed, reports that baby never latched well and at this time she is satisfied with feeding baby formula. Patient denies scotoma, denies dizziness, denies FORRESTER. Patient denies issues with urination and ambulation. Discharge to home planned today. Objective: Nipples without cracks and blisters, no erythema noted Abdomen NT x 4 quadrants, FF midline @ 2FB below umbilicus Trace pedal edema, non-pitting, +2/4 reflexes in LE scant rubra lochia, perineum well-approximated - Physical Exam General: Alert, Oriented x3, Cooperative HEENT: Atraumatic, Normocephalic Neck: Supple Lungs: Clear to auscultation, Normal air movement Cardiovascular: Regular rate, No murmurs Abdomen: Soft, Non Tender Extremities: No edema, Capillary Refill Less than 3 Seconds Skin: No rashes, No breakdown Musculoskeletal: No Tenderness to Palpation of Joints or Extremities Neurological: Cranial nerves II-XII grossly intact Psych/Mental Status: Normal Affect, Appropriate Vital Signs Temp Pulse Resp BP Pulse Ox 97.3 F L 80 16 95/69 98 08/17/18 02:00 08/17/18 02:00 08/17/18 02:00 08/17/18 02:00 08/16/18 20:20 Oxygen Delivery Method Room Air Weight: 147 lb 11.355 oz Body Mass Index (BMI) 26.2 Intake and Output for Last 24 Hours 08/15/18 08/16/18 08/17/18 23:59 23:59 23:59 Output Total 500 / 500 Balance -500 / -500 Medical Necessity - Tobacco Use Smoking Status: Former smoker Assessment/Plan All Active Problems (Last Updated 04/01/18 @ 08:33 by Vince Vasquez) Pyelonephritis affecting in second trimester (Acute) Cramping affecting , antepartum (Acute) 22 y/o s/p , PPD #2, Normal PP Course 1) Discharge to home pending discharge 2) Anticipatory PP discharge teaching done 3) RTC at 2 and 6 weeks PP to [facility]
[2018-08-17 13:00] VITALS: BP 106/68; PULSE 96; RESP 18; TEMP 36.4
== END 2018-08-17 13:00 | disposition home or self-care (01) | DRG 560 ==
LOC: WPOUT 15:27
PROVIDERS: Admitting Provider Obstetrics & Gynecology; Referring Provider Obstetrics & Gynecology; Visit Provider Obstetrics & Gynecology
DX: O70.1 Second degree perineal laceration during delivery (principal); O69.81X0 Labor and delivery complicated by cord around neck, without compression, not applicable or unspecified; O99.323 Drug use complicating pregnancy, third trimester; F19.10 Other psychoactive substance abuse, uncomplicated; Z3A.40 40 weeks gestation of pregnancy; Z37.0 Single live birth; Z87.891 Personal history of nicotine dependence
CPT/HCPCS: 59025; 59050; 80307; 84112; 85027; 86850; 86900; 99218; J7120; G0378; J2405

== ENCOUNTER 2021-05-12 15:35 | Emergency (ER) | payer SELFPAY ==
[2021-05-12 15:36] VITALS: BP 111/74; PULSE 120; RESP 15; TEMP 35.8; O2SAT 98; BMI 17.9
--- NOTE | 2021-05-12 16:16 | EDS_ITS ---
HPI History of Present Illness Chief Complaint: Dental Informant: patient Narrative Narrative: 25-year-old female presents with facial swelling. Patient states she has had a tooth has broken apart due to decay down to the gumline. She tells me that she has not had any fever. She has not seen a dentist for years. She is a tobacco user. [facility] Medical History Pyelonephritis affecting Home Medications vit no.[id number] [ Vitamin] 1 ea PO DAILY 04/01/18 [History Last Taken 08/14/18 10:00] hydrocodone-acetaminophen 1 tab PO Q6H PRN PRN 3 Days #12 tablet 05/12/21 [Rx Last Taken Unknown] penicillin V potassium 500 mg PO 4X/DAY #40 tab 05/12/21 [Rx Last Taken Unknown] Allergy/AdvReac Type Severity Reaction Status Date / Time No Known Allergies Allergy Verified 05/12/21 15:36 Social History (Updated 05/12/21 @ 16:[address] Angel Gerard DO) Smoking Status: Current some day smoker tobacco type: cigarettes substance use type: does not use ROS ROS ED Constitutional Constitutional ED: Denies chills or weight loss Eyes Eyes: Denies change in vision or diplopia ENT ENT ED: Reports other Details: Facial swelling dental decay ; Denies ear pain, rhinorrhea or sore throat Cardiovascular Cardiovascular: Denies chest pain, orthopnea, palpitations or racing heartbeat Respiratory/Chest Respiratory/Chest: Denies cough, dyspnea or orthopnea Gastrointestinal Gastrointestinal: Denies abdominal pain, diarrhea, nausea or vomiting Genitourinary Genitourinary ED: Denies dysuria, hematuria or urinary frequency Musculoskeletal Musculoskeletal: Denies arthralgias or myalgias Integumentary Denies abscess or rash Neurologic Neurologic: Denies headache(s) or weakness Psychiatric Psychiatric: Denies anxiety, depression, suicidal ideation or suicidal thoughts Endocrine Endocrinology: Denies polydipsia, polyphagia or polyuria Allergic/Immunologic Allergic/Immunologic ED: Denies mouth swelling, tongue swelling or urticaria EXAM Physical Exam Const Vital Signs: 05/12/21 15:36 Temperature 96.5 F L Temperature Source Temporal Pulse Rate 120 H Respiratory Rate 15 Blood Pressure 111/74 Blood Pressure Mean 86 Pulse Ox 98 Oxygen Delivery Method Room Air Positive well nourished and well developed General Appearance ED: well developed HEENT Reports normocephalic, head/scalp atraumatic, TM's clear and moist mucous membranes HEENT Narrative: There is swelling along the mandible on the right. There is no overlying erythema. Oral pharyngeal exam reveals some swelling along the gumline in the right posterior aspect. There is significantly decayed tooth wit h some bleeding from the gums. I do not appreciate a drainable abscess at this time Tympanic Membrane ED: Yes TM's clear Eyes PERRL and EOMs intact bilaterally Neck no lymphadenopathy, supple and no JVD Resp normal respiratory effort and clear to auscultation bilaterally Cardio regular rate, regular rhythm and no murmurs GI normal to inspection, nondistended, normoactive bowel sounds and non-tender Palpation: soft Back/Spine no CVA tenderness and normal ROM Extremity normal to inspection General Extremety ED: Negative for edema General Extremity: Negative for edema Neuro oriented x3 and CN's II-XII intact bilaterally Sensorium / Orientation: alert Motor Exam: strength 5/5 throughout Psych mental status grossly normal Mood & Affect: Negative for depressed or tearful Skin no rashes or lesions noted and no wounds MDM MDM MDM Narrative Medical decision making narrative: Patient was advised she may need to return to the emergency department for incision and drainage of this abscess. She needs to see a dentist soon as possible. Will be started her on penicillin I will write for some pain medication. Discharge Plan Triage Chief Complaint: Dental ED Provider: Angel Gerard Dx/Rx/DC Orders Clinical Impression: Abscess, dental Instructions: Dental Abscess Prescriptions: New hydrocodone-acetaminophen [hydrocodone-acetaminophen] 1 TABLET tablet 1 tab PO Q6H PRN PRN (Reason: Pain) 3 Days Qty: 12 RF: 0 penicillin V potassium 500 MG tablet 500 mg PO 4X/DAY Qty: 40 RF: 0 No Action vit no.[id number] [ Vitamin] 1 EACH tablet 1 ea PO DAILY RF: 0 Primary Care Provider: Care Physician,No Primary Referrals: Larisa Magallon [NON-STAFF] - As soon as possible Care Physician,No Primary [Primary Care Provider] - Disposition Disposition: Home, Self Care
== END 2021-05-12 16:30 | disposition home or self-care (01) ==
LOC: ED 16:29
PROVIDERS: Emergency Provider Emergency Medicine
DX: K04.7 Periapical abscess without sinus (principal); F17.210 Nicotine dependence, cigarettes, uncomplicated
CPT/HCPCS: 99282

== ENCOUNTER 2021-07-28 10:00 | Emergency (ER) | payer MEDICAID, SELFPAY ==
[2021-07-28 10:00] VITALS: BP 101/65; PULSE 110; RESP 16; TEMP 36.1; O2SAT 99; BMI 19.4
--- NOTE | 2021-07-28 10:19 | ED.VIS.DENTA ---
HPI History of Present Illness Chief Complaint: Dental Informant: patient Narrative Narrative: 25-year-old female presents the emergency department dental pain. Patient states that few months ago she had a right-sided dental abscess and now she is having pain of the left upper canine. She notes some swelling of the left maxillary face. No redness. She has an appointment towards the beginning of August reveal the start cement. She is a smoker. She notes widespread dental decay [facility] Medical History Pyelonephritis affecting Home Medications chlorhexidine gluconate 15 ml MUCOUS MEMBRANE BID #473 ml 07/28/21 [Rx Last Taken Unknown] hydrocodone-acetaminophen 1 tab PO Q6H PRN PRN 3 Days #10 tablet 07/28/21 [Rx Last Taken Unknown] penicillin V potassium 500 mg PO 4X/DAY #40 tab 07/28/21 [Rx Last Taken Unknown] Allergy/AdvReac Type Severity Reaction Status Date / Time No Known Allergies Allergy Verified 07/28/21 10:02 Social History Smoking Status: Current some day smoker tobacco type: cigarettes substance use type: does not use ROS ROS ED Constitutional Constitutional ED: Denies chills, fever(s) or weight loss Eyes Eyes: Denies change in vision or diplopia ENT ENT ED: Reports other Details: See HPI ; Denies ear pain, rhinorrhea or sore throat Cardiovascular Cardiovascular: Denies chest pain, orthopnea, palpitations or racing heartbeat Respiratory/Chest Respiratory/Chest: Denies cough, dyspnea or orthopnea Gastrointestinal Gastrointestinal: Denies abdominal pain, diarrhea, nausea or vomiting Genitourinary Genitourinary ED: Denies dysuria, hematuria or urinary frequency Musculoskeletal Musculoskeletal: Denies arthralgias or myalgias Integumentary Denies abscess or rash Neurologic Neurologic: Denies headache(s) or weakness Psychiatric Psychiatric: Denies anxiety, depression, suicidal ideation or suicidal thoughts Endocrine Endocrinology: Denies polydipsia, polyphagia or polyuria Allergic/Immunologic Allergic/Immunologic ED: Denies mouth swelling, tongue swelling or urticaria EXAM Physical Exam Const Vital Signs: 07/28/21 10:00 Temperature 97 F L Temperature Source Temporal Pulse Rate 110 H Respiratory Rate 16 Blood Pressure 101/65 Blood Pressure Mean 77 Pulse Ox 99 Oxygen Delivery Method Room Air Positive well nourished and well developed General Appearance ED: well developed HEENT Reports normocephalic, head/scalp atraumatic and moist mucous membranes HEENT Narrative: There is widespread dental decay. There is minor gum swelling without fluctuance in the anterior aspect of the left upper canine. There is mild left facial swelling but no erythema. She also has evidence of gingivitis. Eyes PERRL and EOMs intact bilaterally Neck no lymphadenopathy, supple and no JVD Resp normal respiratory effort and clear to auscultation bilaterally Cardio regular rate, regular rhythm and no murmurs GI normal to inspection, nondistended, normoactive bowel sounds and non-tender Palpation: soft Back/Spine no CVA tenderness and normal ROM Extremity normal to inspection General Extremety ED: Negative for edema General Extremity: Negative for edema Neuro oriented x3 and CN's II-XII intact bilaterally Sensorium / Orientation: alert Motor Exam: strength 5/5 throughout Psych mental status grossly normal Mood & Affect: Negative for depressed or tearful Skin no rashes or lesions noted and no wounds MDM MDM MDM Narrative Medical decision making narrative: Patient will be started on chlorhexidine rinse as well as Pen-Vee K. She needs to see dentistry as soon as possible Discharge Plan Triage Chief Complaint: Dental ED Provider: Angel Gerard Dx/Rx/DC Orders Clinical Impression: Abscess, dental, Gingivitis Instructions: Dental Abscess, Understanding Gingivitis Prescriptions: New penicillin V potassium 500 MG tablet 500 mg PO 4X/DAY Qty: 40 RF: 0 chlorhexidine gluconate 0.12 % mouthwash 15 ml mucous membrane BID Qty: 473 RF: 0 hydrocodone-acetaminophen [hydrocodone-acetaminophen] 1 TABLET tablet 1 tab PO Q6H PRN PRN (Reason: Pain) 3 Days Qty: 10 RF: 0 Primary Care Provider: Care Physician,No Primary Referrals: Care Physician,No Primary [Primary Care Provider] - Disposition Disposition: Home, Self Care
[2021-07-28 10:24] VITALS: BP 105/70; PULSE 109
== END 2021-07-28 10:36 | disposition home or self-care (01) ==
LOC: ED 10:29
PROVIDERS: Emergency Provider Emergency Medicine
DX: K04.7 Periapical abscess without sinus (principal); K02.9 Dental caries, unspecified; K05.10 Chronic gingivitis, plaque induced; F17.210 Nicotine dependence, cigarettes, uncomplicated
CPT/HCPCS: 99282

== ENCOUNTER 2021-09-08 19:15 | Emergency (ER) | payer MEDICAID, SELFPAY ==
[2021-09-08 19:16] VITALS: BP 93/74; PULSE 111; RESP 16; TEMP 36.1; O2SAT 98; BMI 18.6
--- NOTE | 2021-09-08 20:25 | ED.RN ---
pt approaches triage desk and states im just going to go to [place]
== END 2021-09-08 20:25 | disposition left against medical advice (07) ==
LOC: ED 20:35
DX: Z53.21 Procedure and treatment not carried out due to patient leaving prior to being seen by health care provider (principal)

== ENCOUNTER 2021-11-20 15:34 | Emergency (ER) | payer MEDICAID, SELFPAY ==
[2021-11-20 15:34] VITALS: BP 110/84; PULSE 129; RESP 16; TEMP 36.8; O2SAT 100; BMI 19.5
--- NOTE | 2021-11-20 15:51 | EDS_ITS ---
HPI <SHAUN Greenberg - Last Filed: 11/20/21 16:17> History of Present Illness Chief Complaint: Laceration Narrative Narrative: 26-year-old [id number] female presents with right hand laceration. Just prior to arrival she was doing dishes and a cup broke and she cut her hand. Bleeding is controlled. No weakness, numbness, tingling. Last tetanus unknown. PFSH <SHAUN Greenberg - Last Filed: 11/20/21 16:17> [facility] Medical History Pyelonephritis affecting Home Medications chlorhexidine gluconate 15 ml MUCOUS MEMBRANE BID #473 ml 07/28/21 [Rx Last Taken Unknown] hydrocodone-acetaminophen 1 tab PO Q6H PRN PRN 3 Days #10 tablet 07/28/21 [Rx Last Taken Unknown] penicillin V potassium 500 mg PO 4X/DAY #40 tab 07/28/21 [Rx Last Taken Unknown] Allergy/AdvReac Type Severity Reaction Status Date / Time No Known Allergies Allergy Verified 11/20/21 15:36 Social History Smoking Status: Current some day smoker tobacco type: cigarettes substance use type: does not use ROS <SHAUN Greenberg - Last Filed: 11/20/21 16:17> ROS ED ROS Narrative Constitutional: Negative for fever, chills, malaise. Eyes: Negative for visual change. ENT: Negative for sore throat, rhinorrhea. CVS: Negative for palpitations, chest pain, syncope. Respiratory: Negative for shortness of breath, cough. GI: Negative for abdominal pain, nausea, vomiting. : Negative for dysuria, hematuria or frequency. Neuro: Negative for headache, motor/sensory dysfunction. Skin: Positive for wound. Negative for rash, abscess. Musc: Negative for joint pain, swelling. Heme: Negative for easy bruising, bleeding, lymphadenopathy. EXAM <SHAUN Greenberg - Last Filed: 11/20/21 16:17> Physical Exam Narrative Exam Narrative: CONST: Patient sitting in no acute distress. EYES: Normal inspection. NECK: Normal inspection. RESP: No respiratory distress, CTAB. CVS: Regular rate and rhythm, no murmur, no gallop. SKIN: 2 cm half circular shaped laceration on right dorsal 5th MCP, no bleeding or foreign body. EXTREMITIES: Normal appearance, full ROM of wrist and digits, no evidence of tendon injury. 2+ radial pulse and capillary refill less than 2 seconds in all 5 digits. NEURO: Oriented x4. PSYCH: Normal affect. Const Vital Signs: 11/20/21 15:34 Temperature 98.3 F Temperature Source Temporal Pulse Rate 129 H Respiratory Rate 16 Blood Pressure 110/84 H Blood Pressure Mean 92 Pulse Ox 100 Oxygen Delivery Method Room Air <Dr. Luis Armando Castelan DO - Last Filed: 11/20/21 16:26> Physical Exam Const Vital Signs: 11/20/21 15:34 Temperature 98.3 F Temperature Source Temporal Pulse Rate 129 H Respiratory Rate 16 Blood Pressure 110/84 H Blood Pressure Mean 92 Pulse Ox 100 Oxygen Delivery Method Room Air MDM <SHAUN Greenberg - Last Filed: 11/20/21 16:17> [facility] Narrative Medical decision making narrative: Patient presents with right hand laceration. She is a 2 cm half circular lesion on the dorsal surface of the fifth MCP. She has full range of motion and is neurovascularly intact. No evidence of ligamentous or tendon injury. The laceration was anesthetized with 3 cc of 1% lidocaine and thoroughly irrigated with sterile saline. It was closed with 6 simple erupted sutures of 5-0 Ethilon with good wound approximation. We discussed wound care and tetanus was updated. Sutures need removed in 7 to 10 days. She was discharged in stable condition. 1. Laceration, right hand <Dr. Luis Armando Castelan, - Last Filed: 11/20/21 16:26> [facility] Narrative Medical decision making narrative: Patient was seen with me. I did a [id number] examination. I agree with the history and physical examination. I was present during all quintanilla points of the procedure. Patient presents with a laceration to her right hand that occurred today. Patient states she was doing dishes and was washing a broken glass. Patient did not realize it was broken and cut her right hand. Patient denies any paresthesias or weakness. Patient is unsure of her last tetanus. Vital signs are stable. Patient is afebrile. Patient is in no acute distress. There is a 2 cm curvilinear laceration over the dorsal aspect of the right hand over the fifth MP joint. There are no visualized foreign bodies. There is good range of motion in flexion and extension of the MP, PIP, and DIP joints of the right fifth finger. Sensation was intact to light touch in all digits. Capillary refill was less than 2 seconds in all digits. The wound was cleaned and anesthetized. The wound was closed with 6 simple interrupted sutures. Patient tolerated the procedure well. Patient was instructed to keep the wound clean and dry. Patient was instructed to follow-up with her primary care physician in 5 to 7 days for wound recheck and suture removal. Patient understood and was agreeable with the plan. All questions were answered. Discharge Plan Triage Chief Complaint: Laceration ED Provider: Mona Mary Dx/Rx/DC Orders Clinical Impression: Laceration of hand, right Instructions: ED Laceration, Hand: All Closures Prescriptions: No Action penicillin V potassium 500 MG tablet 500 mg PO 4X/DAY Qty: 40 RF: 0 chlorhexidine gluconate 0.12 % mouthwash 15 ml mucous membrane BID Qty: 473 RF: 0 hydrocodone-acetaminophen [hydrocodone-acetaminophen] 1 TABLET tablet 1 tab PO Q6H PRN PRN (Reason: Pain) 3 Days Qty: 10 RF: 0 Primary Care Provider: Care Physician,No Primary Referrals: Care Physician,No Primary [Primary Care Provider] - Activity Restrictions/Additional Instructions: You can gently clean the area with soap and water. Stitches need removed in 7 to 10 days. If you develop any signs of infection such as redness, swelling, or pus come back to the ER immediately. Disposition Disposition: Home, Self Care
[2021-11-20] MEDS: Diphth,Pertuss(Acell),Tet Vac 0.5 ML Vial IM (15:52)
[2021-11-20] MEDS: Lidocaine 1% (20 ml mdv) 20 ML Vial INFILT (16:25)
== END 2021-11-20 16:26 | disposition home or self-care (01) ==
PROVIDERS: Emergency Provider Physician Assistant; Visit Provider Physician Assistant
DX: S61.411A Laceration without foreign body of right hand, initial encounter (principal); F17.210 Nicotine dependence, cigarettes, uncomplicated; W26.8XXA Contact with other sharp object(s), not elsewhere classified, initial encounter; Y93.9 Activity, unspecified; Y92.9 Unspecified place or not applicable; Z23 Encounter for immunization
CPT/HCPCS: 12001; 90715; 99284

== ENCOUNTER 2021-12-01 14:14 | Emergency (ER) | payer MEDICAID, SELFPAY ==
[2021-12-01 14:14] VITALS: BP 118/74; PULSE 121; RESP 16; TEMP 36.2; O2SAT 100; BMI 19.5
== END 2021-12-01 15:40 | disposition left against medical advice (07) ==
LOC: ED 15:51
PROVIDERS: Emergency Provider Emergency Medicine; Visit Provider Emergency Medicine
DX: Z53.21 Procedure and treatment not carried out due to patient leaving prior to being seen by health care provider (principal)

== ENCOUNTER 2022-01-10 19:37 | Emergency (ER) | payer MEDICAID, SELFPAY ==
[2022-01-10 19:38] VITALS: BP 133/85; PULSE 96; RESP 14; TEMP 36.6; O2SAT 99; BMI 19.4
--- NOTE | 2022-01-10 20:01 | EDS_ITS ---
HPI History of Present Illness Chief Complaint: Dental Narrative Narrative: 26-year-old female presenting with left upper dental pain. She states that this started a few days ago. She states that in June she was scheduled to see the [facility] dental clinic but has not had a call back since. She states her only ability to communicate with them is to call and leave a message and nobody returned her call. She has not tried a new dentist. The pain in her left upper dental region is new. Denies fever. She is associated with mild swelling of the face. No difficulty swallowing or breathing. PFSH PFS Medical History Pyelonephritis affecting Home Medications amoxicillin-pot clavulanate 1 tab PO BID #20 tab 01/10/22 [Rx Last Taken Unknown] naproxen [Naprosyn] 500 mg PO BID PRN #20 tab 01/10/22 [Rx Last Taken Unknown] Allergy/AdvReac Type Severity Reaction Status Date / Time No Known Allergies Allergy Verified 01/10/22 19:38 Social History Smoking Status: Current some day smoker tobacco type: cigarettes substance use type: does not use ROS ROS ED Constitutional Constitutional ED: Denies chills or fever(s) Eyes Eyes: Denies blurry vision ENT ENT ED: Reports other Details: Dental pain ; Denies rhinorrhea or sore throat Cardiovascular Cardiovascular: Denies chest pain or palpitations Respiratory/Chest Respiratory/Chest: Denies cough or dyspnea Gastrointestinal Gastrointestinal: Denies abdominal pain, nausea or vomiting Genitourinary Genitourinary ED: Denies dysuria or hematuria Musculoskeletal Musculoskeletal: Denies arthralgias or myalgias Integumentary Denies abscess or rash Neurologic Neurologic: Denies headache(s) or weakness Psychiatric Psychiatric: Denies anxiety or depression EXAM Physical Exam Const Vital Signs: 01/10/22 19:38 Temperature 97.8 F Temperature Source Temporal Pulse Rate 96 Respiratory Rate 14 Blood Pressure 133/85 H Blood Pressure Mean 101 Pulse Ox 99 Oxygen Delivery Method Room Air Positive well nourished General Appearance ED: NAD HEENT HEENT Narrative: Focal tenderness over the left posterior maxillary teeth. There are multiple dental caries and tooth erosions in this area. Patient does have multiple dental caries throughout as well. No facial swelling noted. No submandibular fullness. Tongue is normal. No lymphadenopathy. Negative for trauma Teeth and Gingiva: abnormal tooth and associated gingiva Eyes PERRL Neck no lymphadenopathy and supple Lymph Lymphatic: no lymphadenopathy noted Cardio regular rate and regular rhythm Neuro oriented x3 Sensorium / Orientation: alert Psych mental status grossly normal Skin no rashes or lesions noted MDM MDM MDM Narrative Medical decision making narrative: Patient with multiple dental caries the worst of which were in the left upper maxillary teeth. These teeth have eroded considerably be. She does not have any sign of Ludewig's angina. Her face is not significantly swollen. No trouble talking, breathing, swallowing. I will start the patient on Augmentin. He is given a dental referral sheet. She can also try [place] [facility] again. Patient stable for discharge at this time. Impression: 1. Dental abscess 2. Dental caries Discharge Plan Triage Chief Complaint: Dental ED Provider: Scot Forman Dx/Rx/DC Orders Instructions: ED Dental Cavity, ED Dental Abscess Prescriptions: New naproxen [Naprosyn] 500 mg tablet 500 mg PO BID PRN (Reason: pain) Qty: 20 RF: 0 amoxicillin-pot clavulanate 875-125 mg tablet 1 tab PO BID Qty: 20 RF: 0 Primary Care Provider: Care Physician,No Primary Referrals: Care Physician,No Primary [Primary Care Provider] - Disposition Disposition: Home, Self Care Discharge Date/Time: 01/10/22 20:10
[2022-01-10] MEDS: Amox/Clavulanate 875 MG Tablet PO (20:08)
== END 2022-01-10 20:10 | disposition home or self-care (01) ==
PROVIDERS: Emergency Provider Student in an Organized Health Care Education/Training Program; Visit Provider Student in an Organized Health Care Education/Training Program
DX: K04.7 Periapical abscess without sinus (principal); F17.210 Nicotine dependence, cigarettes, uncomplicated; K02.9 Dental caries, unspecified
CPT/HCPCS: 99283

== ENCOUNTER 2022-07-16 11:06 | Emergency (ER) | payer MEDICAID, SELFPAY ==
[2022-07-16 11:07] VITALS: BP 96/73; PULSE 88; RESP 16; TEMP 36.4; O2SAT 100; BMI 19.5
[2022-07-16 11:45] VITALS: BP 96/73; PULSE 88; RESP 16; TEMP 36.7; O2SAT 100
--- NOTE | 2022-07-16 12:42 | EDS_ITS ---
HPI History of Present Illness Chief Complaint: Abscess Informant: patient Onset/Context/Timing Onset: Days (2) Context: Gradual Onset Timing: Continuous Quality: Aching Location: Upper lip and nose Worsened by: Nothing Relieved by: Nothing Narrative Narrative: Patient presents with facial abscess that has been getting worse over the past 2 days. Patient states it is gradually getting worse. Patient describes it as aching. Patient states it is around her nose and upper lip. Patient states nothing makes it worse and nothing makes it better. Patient admits to a mild headache. Patient states he started having some drainage yesterday. Patient denies any fevers or chills. Patient denies any nausea or vomiting. PFSH PFS Medical History Pyelonephritis affecting no medical history Home Medications amoxicillin 875 mg-potassium clavulanate 125 mg tablet 1 tab PO BID #20 tabs 01/10/22 [Rx Last Taken Unknown] naproxen 500 mg tablet (Naprosyn) 500 mg PO BID PRN pain #20 tabs 01/10/22 [Rx Last Taken Unknown] penicillin V potassium 500 mg tablet 500 mg PO 4X/DAY #40 tabs 07/16/22 [Rx Last Taken Unknown] Allergy/AdvReac Type Severity Reaction Status Date / Time No Known Allergies Allergy Verified 07/16/22 11:09 Surgical History no surgical history no surgical history Social History Smoking Status: Current some day smoker tobacco type: cigarettes substance use type: does not use ROS ROS ED Constitutional Constitutional ED: Denies chills or fever(s) Eyes Eyes: Denies blurry vision or change in vision ENT ENT ED: Denies rhinorrhea or sore throat Cardiovascular Cardiovascular: Denies chest pain or palpitations Respiratory/Chest Respiratory/Chest: Denies cough or dyspnea Gastrointestinal Gastrointestinal: Denies nausea or vomiting Genitourinary Genitourinary ED: Denies dysuria or hematuria Musculoskeletal Musculoskeletal: Denies back pain or neck pain Integumentary Reports abscess; Denies rash Neurologic Neurologic: Reports headache(s); Denies weakness Allergic/Immunologic Allergic/Immunologic ED: Denies mouth swelling or urticaria EXAM Physical Exam Const Vital Signs: 07/16/22 11:07 07/16/22 11:45 Temperature 97.6 F L 98.0 F Temperature Source Temporal Temporal Pulse Rate 88 88 Respiratory Rate 16 16 Blood Pressure 96/73 96/73 Blood Pressure Mean 80 80 Pulse Ox 100 100 Oxygen Delivery Method Room Air Room Air Positive well nourished, well developed and unkempt General Appearance ED: unkempt, well developed and NAD HEENT Reports moist mucous membranes HEENT Narrative: There is tenderness and edema of the upper gingiva near the midline. There is an area that is open and draining. There is no purulent drainage noted. There is no fluctuance. There are multiple dental caries. Oropharynx is clear. Airway is patent. Neck is supple. Trachea is midline. There is no JVD or lymphadenopathy. There is no sublingual edema. There is no erythema or induration of the sublingual space. There is no anterior neck swelling. There is no evidence of Rad's angina. Eyes PERRL and EOMs intact bilaterally Neck supple and no JVD Neuro oriented x3, CN's II-XII intact bilaterally and no sensory deficits noted Sensorium / Orientation: alert Motor Exam: strength 5/5 throughout Psych mental status grossly normal Appearance: unkempt Skin no rashes or lesions noted and no wounds MDM MDM MDM Narrative Medical decision making narrative: This appears to be an abscess from dental caries of her upper incisors. Patient was given a dose of Pen-Vee K here. Patient was given a prescription for Pen- Vee K. Patient was instructed to take Tylenol or ibuprofen as needed for pain. Patient was instructed to rinse her mouth frequently. Patient was instructed to follow-up with her dentist in 5 to 7 days. Patient understood and was agreeable with the plan. All questions were answered. Discharge Plan Triage Chief Complaint: Abscess ED Provider: Luis Armando Castelan Dx/Rx/DC Orders Clinical Impression: Abscess, dental Instructions: ED Dental Abscess Prescriptions: New penicillin V potassium 500 MG tablet 500 mg PO 4X/DAY Qty: 40 0RF No Action naproxen [Naprosyn] 500 mg tablet 500 mg PO BID PRN (Reason: pain) Qty: 20 0RF amoxicillin-pot clavulanate 875-125 mg tablet 1 tab PO BID Qty: 20 0RF Primary Care Provider: Care Physician,No Primary Referrals: Care Physician,No Primary [Primary Care Provider] - Dentist,Your [STAFF PHYSICIAN] - 5-7 Days Disposition Disposition: Home, Self Care
[2022-07-16] MEDS: Penicillin Vk 250 MG Tablet 500 MG PO (12:54)
== END 2022-07-16 12:55 | disposition home or self-care (01) ==
PROVIDERS: Emergency Provider Emergency Medicine; Visit Provider Emergency Medicine
DX: K04.7 Periapical abscess without sinus (principal); R51.9 Headache, unspecified; F17.210 Nicotine dependence, cigarettes, uncomplicated
CPT/HCPCS: 99283

== ENCOUNTER 2022-09-18 20:00 | Emergency (ER) | payer MEDICAID, SELFPAY ==
[2022-09-18 20:01] VITALS: BP 114/77; PULSE 123; RESP 15; TEMP 36.7; O2SAT 100; BMI 19.5
--- NOTE | 2022-09-18 20:21 | EX.ED.DYSGE1 ---
HPI History of Present Illness Chief Complaint: Abscess Informant: patient Narrative Narrative: Patient presents with dental pain and swelling. She has had problems with this before. She had an abscess with swelling of her left upper face back in July. It responded well to oral antibiotics. She has been having dental pain more on the lower jaw. She saw dentist recently. She is set to see them again and sounds like have dental extraction on the of this month. But over the last couple days she has gotten swelling in the right lower jaw. No fevers or chills. She states it hurts when she chews on things so she is not eating and drinking as much. But she is able to swallow. She is actually eating a sanchez dipped in some sauce from [employer] when I walk in the room. No trouble handling secretions. No neck pain or chest pain. [facility] Medical History Pyelonephritis affecting Home Medications amoxicillin 875 mg-potassium clavulanate 125 mg tablet 1 tab PO BID #20 tabs 01/10/22 [Rx Last Taken Unknown] naproxen 500 mg tablet (Naprosyn) 500 mg PO BID PRN pain #20 tabs 01/10/22 [Rx Last Taken Unknown] penicillin V potassium 500 mg tablet 500 mg PO 4X/DAY #40 tabs 07/16/22 [Rx Last Taken Unknown] naproxen 500 mg tablet 500 mg PO BID #20 tabs 09/18/22 [Rx Last Taken Unknown] penicillin V potassium 250 mg/5 mL oral solution 500 mg (10 mL) PO .QID 10 days #400 mL 09/18/22 [Rx Last Taken Unknown] Allergy/AdvReac Type Severity Reaction Status Date / Time No Known Allergies Allergy Verified 09/18/22 20:06 Social History Smoking Status: Current some day smoker tobacco type: cigarettes substance use type: does not use ROS ROS ED Constitutional Constitutional ED: Denies chills or fever(s) Eyes Eyes: Denies change in vision ENT ENT ED: Reports other Details: Dental pain right lower anterior jaw. See history of present illness. ; Denies ear pain, rhinorrhea or sore throat Cardiovascular Cardiovascular: Denies chest pain, palpitations or racing heartbeat Respiratory/Chest Respiratory/Chest: Denies cough Gastrointestinal Gastrointestinal: Denies nausea or vomiting Musculoskeletal Musculoskeletal: Denies neck pain Integumentary Denies rash Neurologic Neurologic: Denies headache(s) Endocrine Endocrinology: Denies polydipsia or polyuria Hematologic/Lymphatic Hematologic/Lymphatic: Denies easy bleeding or easy bruising Allergic/Immunologic Allergic/Immunologic ED: Denies urticaria EXAM Physical Exam Const Vital Signs: 09/18/22 20:01 Temperature 98.0 F Temperature Source Temporal Pulse Rate 123 H Respiratory Rate 15 Blood Pressure 114/77 Blood Pressure Mean 89 Pulse Ox 100 Oxygen Delivery Method Room Air Positive well nourished and well developed Constitutional Narrative: Patient sitting calmly and quietly in bed. She is comfortable. She carries on a normal conversation. General Appearance ED: well developed HEENT HEENT Narrative: Patient has obvious swelling lateral to the mandible at the anterior lateral aspect. It does not go down below the angle of the mandible though. Range of motion of the jaw is really normal. She has a lot of soft tissue swelling but I do not see an abscess internally. She has multiple teeth that have significant erosions down to the gums. There is no active drainage. There is no swelling of the base of the tongue or tongue. No pain with motion or palpation of the tongue. No posterior pharyngeal swelling. Her voice is normal. Swallowing seems normal. Handling secretions is normal. No indication of Ludewig's angina. Eyes EOMs intact bilaterally Eyes Narrative: No limitation or pain with range of motion Neck no lymphadenopathy Resp normal respiratory effort Cardio regular rhythm Rate: tachycardic and other Other Details: Heart rate is about 105 on my exam. It is tachycardic but no murmur. Pulses are normal. GI normal to inspection, nondistended, normoactive bowel sounds and non-tender Neuro Sensorium / Orientation: alert Psych mental status grossly normal Skin no rashes or lesions noted Skin Narrative: No external skin lesions. MDM MDM MDM Narrative Medical decision making narrative: This patient has findings consistent with dental abscess. But I do not feel any fluctuant spot. I there is nothing that I can drain. There is no sign of Ludewig's angina. I will treat her with antibiotics. She requested liquids if able because the penicillin pills are so big. We will try to get a liquid prescription for penicillin but I do not think I have liquids here. I will write for Naprosyn tablets which are smaller. She has an appointment with dentist already. I explained that if she gets more pain swelling or any trouble swallowing or breathing she needs to return. Discharge Plan Triage Chief Complaint: Abscess Other Complaint: Dental ED Provider: Vadim Valente Dx/Rx/DC Orders Clinical Impression: Abscess, dental Instructions: Dental Abscess Prescriptions: New naproxen 500 mg tablet 500 mg PO BID Qty: 20 0RF penicillin V potassium 250 mg/5 mL recon soln 500 mg PO .QID 10 Days Qty: 400 0RF No Action naproxen [Naprosyn] 500 mg tablet 500 mg PO BID PRN (Reason: pain) Qty: 20 0RF amoxicillin-pot clavulanate 875-125 mg tablet 1 tab PO BID Qty: 20 0RF penicillin V potassium 500 MG tablet 500 mg PO 4X/DAY Qty: 40 0RF Primary Care Provider: Care Physician,No Primary Referrals: Care Physician,No Primary [Primary Care Provider] - Disposition Disposition: Home, Self Care
[2022-09-18] MEDS: Penicillin Vk 250 MG Tablet 500 MG PO (20:29)
[2022-09-18] MEDS: dexAMETHasone 10 MG/ML Vial PO.IVFORM (20:30)
== END 2022-09-18 20:36 | disposition home or self-care (01) ==
LOC: ED 20:36
PROVIDERS: Emergency Provider Emergency Medicine; Visit Provider Emergency Medicine
DX: K04.7 Periapical abscess without sinus (principal); R68.84 Jaw pain; F17.210 Nicotine dependence, cigarettes, uncomplicated
CPT/HCPCS: 96361; 96374; 99283

== ENCOUNTER 2022-09-23 14:59 | Emergency (ER) | payer MEDICAID, SELFPAY ==
[2022-09-23 14:59] VITALS: BP 110/82; PULSE 124; RESP 16; TEMP 36.8; O2SAT 98; BMI 19.5
--- NOTE | 2022-09-23 16:54 | EDS_ITS ---
HPI History of Present Illness Chief Complaint: Abscess Informant: patient Onset/Context/Timing Onset: Days Context: Gradual Onset Current Severity: Moderate Maximum Severity: Moderate Narrative Narrative: Patient presents secondary to dental abscess. She was seen in the emergency room on the with a right-sided dental abscess. She was started on Pen-Vee K. Patient states she is post to have her teeth extracted yesterday but because of continued abscess they were not able to do anything. She did not actually go to the office to see them. She presents back to the emergency room today stating that she is had only very mild improvement in her symptoms. [facility] Medical History Pyelonephritis affecting Home Medications amoxicillin 875 mg-potassium clavulanate 125 mg tablet 1 tab PO BID #20 tabs 01/10/22 [Rx Last Taken Unknown] naproxen 500 mg tablet (Naprosyn) 500 mg PO BID PRN pain #20 tabs 01/10/22 [Rx Last Taken Unknown] penicillin V potassium 500 mg tablet 500 mg PO 4X/DAY #40 tabs 07/16/22 [Rx Last Taken Unknown] naproxen 500 mg tablet 500 mg PO BID #20 tabs 09/18/22 [Rx Last Taken Unknown] penicillin V potassium 250 mg/5 mL oral solution 500 mg (10 mL) PO .QID 10 days #400 mL 09/18/22 [Rx Last Taken Unknown] clindamycin palmitate HCl 75 mg/5 mL oral solution 300 mg (20 mL) PO Q6H 10 days #800 mL 09/23/22 [Rx Last Taken Unknown] Allergy/AdvReac Type Severity Reaction Status Date / Time No Known Allergies Allergy Verified 09/18/22 20:06 Social History Smoking Status: Current some day smoker tobacco type: cigarettes substance use type: does not use ROS ROS ED Constitutional Constitutional ED: Denies chills or fever(s) Eyes Eyes: Denies change in vision or discharge from eye(s) ENT ENT ED: Reports other Details: Right-sided dental pain, facial swelling ; Denies discharge from eye(s), rhinorrhea or sore throat Cardiovascular Cardiovascular: Denies chest pain or palpitations Respiratory/Chest Respiratory/Chest: Denies cough or dyspnea Gastrointestinal Gastrointestinal: Denies abdominal pain, diarrhea, nausea or vomiting Genitourinary Genitourinary ED: Denies dysuria Musculoskeletal Musculoskeletal: Denies back pain or extremity pain Integumentary Denies Abrasions or rash Neurologic Neurologic: Denies headache(s) or weakness Psychiatric Psychiatric: Denies anxiety or depression Allergic/Immunologic Allergic/Immunologic ED: Denies lip swelling or urticaria EXAM Physical Exam Const Vital Signs: 09/23/22 14:59 Temperature 98.2 F Temperature Source Temporal Pulse Rate 124 H Respiratory Rate 16 Blood Pressure 110/82 H Blood Pressure Mean 91 Pulse Ox 98 Oxygen Delivery Method Room Air Positive well nourished and well developed General Appearance ED: well developed HEENT Reports normocephalic and head/scalp atraumatic HEENT Narrative: Mild right-sided facial swelling along the mandible. Patient speaks with a strong voice and is tolerating secretions well. Intraoral examination reveals a abscess along the lateral surface of the right lower teeth around the premolar region. The abscess is already spontaneously draining at this time. Posterior pharynx exam is normal. No evidence of Rad's angina. Eyes PERRL and EOMs intact bilaterally Neck Neck Narrative: Mild cervical lymphadenopathy. Chest Wall inspection of chest normal and palpation of chest normal Resp normal respiratory effort and clear to auscultation bilaterally Cardio regular rate and regular rhythm GI Palpation: soft Extremity normal to inspection Neuro oriented x3 and no sensory deficits noted Sensorium / Orientation: alert Motor Exam: strength 5/5 throughout Psych mental status grossly normal Skin no rashes or lesions noted MDM MDM MDM Narrative Medical decision making narrative: Patient has a dental abscess that is already draining. I will switch her to clindamycin from Pen-Vee K to see if we get better antibiotic coverage. She will continue anti-inflammatories. We discussed using salt water gargles and using mouthwash. She will continue doing this as well. Discharge Plan Triage Chief Complaint: Abscess ED Provider: Arabella Justice Dx/Rx/DC Orders Clinical Impression: Abscess, dental Instructions: ED Dental Abscess Prescriptions: New clindamycin palmitate HCl 75 mg/5 mL recon soln 300 mg PO Q6H 10 Days Qty: 800 0RF No Action naproxen [Naprosyn] 500 mg tablet 500 mg PO BID PRN (Reason: pain) Qty: 20 0RF amoxicillin-pot clavulanate 875-125 mg tablet 1 tab PO BID Qty: 20 0RF penicillin V potassium 500 MG tablet 500 mg PO 4X/DAY Qty: 40 0RF naproxen 500 mg tablet 500 mg PO BID Qty: 20 0RF penicillin V potassium 250 mg/5 mL recon soln 500 mg PO .QID 10 Days Qty: 400 0RF Primary Care Provider: Care Physician,No Primary Referrals: Care Physician,No Primary [Primary Care Provider] - Activity Restrictions/Additional Instructions: Follow-up with your dentist as scheduled. Disposition Disposition: Home, Self Care
[2022-09-23 17:12] VITALS: PULSE 118
[2022-09-23 17:13] VITALS: PULSE 110
[2022-09-23] MEDS: Clindamycin Palmitate 75 MG/5 ML 300 MG PO (17:19)
== END 2022-09-23 17:28 | disposition home or self-care (01) ==
LOC: ED 17:00
PROVIDERS: Emergency Provider Emergency Medicine; Visit Provider Emergency Medicine
DX: K04.7 Periapical abscess without sinus (principal); F17.210 Nicotine dependence, cigarettes, uncomplicated
CPT/HCPCS: 99283

== ENCOUNTER 2023-07-10 15:35 | Emergency (ER) | payer MEDICAID, SELFPAY ==
[2023-07-10 15:36] VITALS: BP 125/80; PULSE 119; RESP 18; TEMP 36.8; O2SAT 99; BMI 17.5
--- NOTE | 2023-07-10 15:58 | EDS_ITS ---
HPI History of Present Illness Chief Complaint: Dental Detail of Chief Complaint: Dental pain Informant: patient Narrative Narrative: Patient presents the emergency room with complaint of dental pain for last 2 days. Patient has poor dentition and broken teeth. Patient states that she had an appointment earlier in the year with a dentist to have her teeth pulled however because of work obligations was unable to make her appointment. 2 days ago started having more pain right upper incisor. Denies any trauma. Denies fevers or chills or sweats. PFSH PFSH Medical History Pyelonephritis affecting Home Medications clindamycin HCl 300 mg capsule (Cleocin HCl) 300 mg PO Q6H #40 CAPSULES 07/10/23 [Rx Last Taken Unknown] hydrocodone-acetaminophen 5-325mg 5mg-325mg 1 tab PO Q4H PRN PRN Pain 2 days #10 TABLETS 07/10/23 [Rx Last Taken Unknown] Allergy/AdvReac Type Severity Reaction Status Date / Time No Known Allergies Allergy Verified 07/10/23 15:36 Social History Smoking Status: Current some day smoker tobacco type: cigarettes substance use type: does not use ROS ROS ED Review of Systems ROS Unobtainable: other Constitutional Constitutional ED: Reports lethargy; Denies chills, fever(s), sweats or weight loss Eyes Eyes: Denies blurry vision, change in vision or diplopia ENT ENT ED: Reports other Details: Dental pain ; Denies rhinorrhea or sore throat Cardiovascular Cardiovascular: Denies chest pain, orthopnea or racing heartbeat Respiratory/Chest Respiratory/Chest: Denies cough, dyspnea, dyspnea on exertion, orthopnea or sputum Gastrointestinal Gastrointestinal: Denies abdominal pain, diarrhea, nausea or vomiting Genitourinary Genitourinary ED: Denies dysuria, hematuria or urinary frequency Musculoskeletal Musculoskeletal: Denies arthralgias, back pain, myalgias or neck pain Integumentary Denies abscess, Abrasions or rash Neurologic Neurologic: Denies headache(s) or weakness Psychiatric Psychiatric: Denies anxiety, depression or suicidal thoughts Endocrine Endocrinology: Denies polydipsia, polyphagia or polyuria Hematologic/Lymphatic Hematologic/Lymphatic: Denies easy bleeding, easy bruising or lymphadenopathy Allergic/Immunologic Allergic/Immunologic ED: Denies mouth swelling, tongue swelling or urticaria EXAM Physical Exam Const Vital Signs: 07/10/23 15:36 Temperature 98.3 F Temperature Source Temporal Pulse Rate 119 H Respiratory Rate 18 Blood Pressure 125/80 H Blood Pressure Mean 95 Pulse Ox 99 Oxygen Delivery Method Room Air Positive well nourished and well developed General Appearance ED: well developed and NAD HEENT Reports TM's clear and moist mucous membranes HEENT Narrative: Dentition-patient has multiple broken and carried teeth. She has some tenderness over the right upper incisor tooth #7. No gingival erythema or abscess noted. normocephalic and atraumatic; Negative for trauma or tenderness Tympanic Membrane ED: Yes TM's clear Eyes PERRL and EOMs intact bilaterally General Eye ED: Negative for pale conjunctiva or scleral icterus Neck no lymphadenopathy, supple and no JVD General: Negative for tenderness Chest Wall inspection of chest normal and palpation of chest normal Chest: Negative for tenderness Resp normal respiratory effort and clear to auscultation bilaterally Effort and Inspection: Negative for respiratory distress or pain with movement Auscultation: Negative for rhonchi, wheezes or diminished lung sounds Cardio regular rate, regular rhythm, S1 normal heart sound, S2 normal heart sound and no murmurs Peripheral Pulses: pulses 2+ throughout GI normal to inspection, nondistended, normoactive bowel sounds, soft to palpation, non-tender, non-distended and no masses Back/Spine no CVA tenderness and no thoracic nor lumbar tenderness Extremity normal to inspection General Extremety ED: Negative for edema General Extremity: Negative for edema Neuro oriented x3, CN's II-XII intact bilaterally, no sensory deficits noted and gait normal Sensorium / Orientation: awake, alert, oriented to person, oriented to place and oriented to time Motor Exam: strength 5/5 throughout and strength abnormal Psych mental status grossly normal Skin no rashes or lesions noted and no wounds MDM MDM MDM Narrative Medical decision making narrative: PoorPatient with dental pain with diffuse dentition. Will be started on clindamycin and given a prescription for [place] for pain. She will be given referral to dentist. Discharge Plan Triage Chief Complaint: Dental ED Provider: Lobo Yu Dx/Rx/DC Orders Clinical Impression: Dental caries, Pain, dental Instructions: ED Dental Pain, ED Dental Cavity Prescriptions: New clindamycin HCl [Cleocin HCl] 300 mg capsule 300 mg PO Q6H Qty: 40 0RF hydrocodone-acetaminophen [hydrocodone-acetaminophen] 5-325 mg tablet 1 tab PO Q4H PRN PRN (Reason: Pain) 2 Days Qty: 10 0RF Primary Care Provider: Care Physician,No Primary Referrals: Care Physician,No Primary [Primary Care Provider] - Activity Restrictions/Additional Instructions: See a dentist at the earliest possible time Disposition Disposition: Home, Self Care
[2023-07-10] MEDS: Clindamycin HCl 150 MG Capsule 300 MG PO (16:06)
[2023-07-10] MEDS: HYDROcodone Bitartrate/Apap 5/325 Tablet PO (16:06)
[2023-07-10 16:08] VITALS: PULSE 69; RESP 16; O2SAT 97
== END 2023-07-10 16:08 | disposition home or self-care (01) ==
LOC: ED 16:04
PROVIDERS: Emergency Provider Emergency Medicine; Visit Provider Emergency Medicine
DX: K02.9 Dental caries, unspecified (principal); F17.210 Nicotine dependence, cigarettes, uncomplicated
CPT/HCPCS: 99283

== ENCOUNTER 2024-01-05 03:04 | Emergency (ER) | payer MEDICAID, SELFPAY ==
[2024-01-05 03:06] VITALS: BP 111/81; PULSE 119; RESP 16; TEMP 36.5; O2SAT 100; BMI 17.9
--- NOTE | 2024-01-05 03:22 | EDS_ITS ---
HPI History of Present Illness Chief Complaint: Ear Problem Detail of Chief Complaint: Cyst or abscess behind the right external ear. Informant: patient Onset/Context/Timing Onset: Month(s) Context: Gradual Onset Timing: Continuous Current Severity: Mild Maximum Severity: Mild Narrative Narrative: 28-year-old female no seen past medical history. Said behind her right ear on the external ear for about 6 months she has had a swollen area that is either a cyst or abscess. In the past she has had this before and her mom squeezed it and was able to express fluid. She has had its gotten somewhat uncomfortable last several days. No fever or redness. No drainage. No trauma. Prior similar symptoms: Yes Recent Illness/Hospitalization: No PFSH PFSH Medical History Pyelonephritis affecting Home Medications NK 01/05/24 [History Last Taken Unknown] Allergy/AdvReac Type Severity Reaction Status Date / Time No Known Allergies Allergy Verified 01/05/24 03:05 Social History Smoking Status: Current every day smoker tobacco type: cigarettes and e- cigarettes substance use type: does not use ROS ROS ED ROS Narrative Denies recent illness. Review of Systems ROS Unobtainable: Denies due to encephalopathy Constitutional Constitutional ED: Denies chills or fever(s) Eyes Eyes: Denies blurry vision ENT ENT ED: Denies ear pain Cardiovascular Cardiovascular: Denies chest pain Respiratory/Chest Respiratory/Chest: Denies cough or dyspnea Gastrointestinal Gastrointestinal: Denies abdominal pain Genitourinary Genitourinary ED: Denies dysuria or hematuria Musculoskeletal Musculoskeletal: Denies arthralgias or back pain Integumentary Denies abscess or Abrasions Neurologic Neurologic: Denies headache(s) Psychiatric Psychiatric: Denies anxiety or depression Endocrine Endocrinology: Denies cold intolerance Hematologic/Lymphatic Hematologic/Lymphatic: Reports none Allergic/Immunologic Allergic/Immunologic ED: Denies mouth swelling, tongue swelling or urticaria EXAM Physical Exam Narrative Exam Narrative: Well-appearing 28-year-old female. Vital signs stable afebrile. H EENT exam pupils round react to light. Mytrex membranes. Behind her right ear there is about a 1 inch in diameter swollen area consistent with either a cyst or abscess. Minimal tenderness. No redness or warmth. It is fluctuant. Neck nontender no lymphadenopathy. Lungs clear to auscultation bilaterally. Heart regular rhythm no murmur. Abdomen soft nontender. Moving all 4 extremities. Neurologically she is awake and alert with no focal motor deficits. Const Vital Signs: 01/05/24 03:06 Temperature 97.7 F L Temperature Source Temporal Pulse Rate 119 H Respiratory Rate 16 Blood Pressure 111/81 H Blood Pressure Mean 91 Pulse Ox 100 Positive well nourished and well developed; Negative for obese, cachectic, contractures or unkempt General Appearance ED: well developed and NAD; Negative for unkempt, cachectic, contractures, cyanotic, diaphoretic or pallor Nutritional Appearance: Negative for cachectic or obese HEENT Reports moist mucous membranes; Denies dry mucous membranes Negative for trauma or tenderness Mouth ED: No dry mucous membranes Mouth: No dry mucous membranes Eyes PERRL and EOMs intact bilaterally General Eye ED: Negative for pale conjunctiva or scleral icterus Neck no lymphadenopathy, supple and no JVD General: Negative for tenderness Lymph Lymphatic: Negative for other Chest Wall inspection of chest normal and palpation of chest normal Chest: Negative for other Resp normal respiratory effort and clear to auscultation bilaterally Effort and Inspection: Negative for retractions Auscultation: Negative for rales, rhonchi, wheezes or diminished lung sounds Cardio regular rate, regular rhythm, S1 normal heart sound, S2 normal heart sound and no murmurs Palpation: Negative for palpable S3 or palpable S4 Rate: Negative for bradycardia or tachycardic Rhythm: Negative for abnormal rhythm GI normal to inspection, nondistended, normoactive bowel sounds, non-tender, non- distended and no masses Inspection: Negative for abdominal distention Auscultation: normoactive bowel sounds Palpation: soft; Negative for tender, guarding or rebound tenderness present Back/Spine no CVA tenderness General Back: Negative for CVA tenderness Cervical Spine: Negative for cervical spine tenderness Thoracic Spine / Upper Back: Negative for thoracic spinal tenderness or paraspinal muscle tenderness Lumbar Spine / Lower Back: Negative for lumbar spinal tenderness Extremity normal to inspection General Extremety ED: Negative for edema, tenderness or other findings General Extremity: Negative for edema or other findings Neuro oriented x3 and CN's II-XII intact bilaterally Sensorium / Orientation: alert; Negative for orientation impaired, lethargic or stuporous Motor Exam: strength 5/5 throughout Psych mental status grossly normal Appearance: Negative for unkempt Attitude: No agitated Mood & Affect: Negative for depressed, anxious or tearful Skin no rashes or lesions noted, no wounds and skin turgor normal General Skin Exam: elasticity normal; Negative for jaundice or pallor Lesions: No lesion noted Rashes: No rashes noted Trauma: Negative for abrasion Wounds: Negative for wounds noted MDM MDM MDM Narrative Medical decision making narrative: 28-year-old female with either a cyst or abscess subcutaneously behind the right external ear. This area will need to be drained. LET. Then local anesthetic with lidocaine. Incised and drained. Incision and drainage of right external earlobe sebaceous cyst. Patient tolerated well. History & Record Review Discussion w/independent historian: Patient Additional record(s) reviewed:: Prior inpatient record, Prior outpatient record, Prior ED visit and Prior labs Procedures Other Procedures Procedure(s): Right ear posterior aspect sebaceous cyst. Let. Then cleaned with Shur-Clens. Local injected with lidocaine. Made a small incision about half to 1 cm. Was able to express sebaceous material. No pus. No redness. Irrigated. Cleaned and dressed. Discharged home with home-going instructions. Discharge Plan Triage Chief Complaint: Ear Problem ED Provider: William Mcmanus Dx/Rx/DC Orders Clinical Impression: Sebaceous cyst of ear Prescriptions: No Action NK Primary Care Provider: Care Physician,No Primary Referrals: Bienvenido Decker MD [Med Staff - Active Staff] - As Needed Care Physician,No Primary [Primary Care Provider] - Activity Restrictions/Additional Instructions: Incised and drained sebaceous cyst on the back of your right ear. Clean daily with soap and water or peroxide and water. Apply thin film of antibiotic ointment. If the area gets red or increased swelling or fever needs to be started on antibiotics. If it reaccumulates and swells up again follow-up with the ear nose and throat Dr. Bienvenido Tovar and he can resect out that area. Disposition Disposition: Home, Self Care
[2024-01-05] MEDS: Lidocaine/Epi/Tetracaine 50 ML 1 APPLIC TOPICAL (03:57)
[2024-01-05] MEDS: Lidocaine 1% (20 ml mdv) 20 ML Vial 5 ML INFILT (03:58)
== END 2024-01-05 04:14 | disposition home or self-care (01) ==
PROVIDERS: Emergency Provider Emergency Medicine; Visit Provider Emergency Medicine
DX: L72.3 Sebaceous cyst (principal); F17.210 Nicotine dependence, cigarettes, uncomplicated; F17.290 Nicotine dependence, other tobacco product, uncomplicated
CPT/HCPCS: 69000; 99284

== ENCOUNTER 2024-12-07 19:35 | Emergency (ER) | payer MEDICAID, SELFPAY ==
[2024-12-07 19:36] VITALS: BP 112/83; PULSE 100; RESP 18; TEMP 36.8; O2SAT 100; BMI 17.9
[2024-12-07] MEDS: Clindamycin HCl 150 MG Capsule 300 MG PO (20:33)
[2024-12-07] MEDS: Acetaminophen 500 MG Tablet 1000 MG PO (20:33)
--- NOTE | 2024-12-07 20:58 | EX.ED.DYSGE1 ---
HPI History of Present Illness Chief Complaint: Cold Sx Narrative Narrative: Patient is a 29-year-old female who presents to the emergency department with a chief complaint of cough, congestion and concern for dental abscess. Patient states that on Wednesday she developed some upper respiratory symptoms denies any recent contacts. She states that she was supposed to have her teeth removed approximately 2 years ago however she states that she does not like dentist and has a lot of anxiety about this therefore she has not followed up for this. States that she she had leftover Keflex that she started take but ran out of this. States that her swelling in her lower jawline had improved. Patient denies any possibility states that she is not sexually active. Patient denies any drug allergies. [facility] Medical History Pyelonephritis affecting Home Medications ?Medication ?Instructions ?Recorded ?Last Taken ?Type NK 01/05/24 Unknown History clindamycin HCl 300 mg capsule 300 mg PO TID 7 days #21 caps 12/07/24 Unknown Rx Allergy/AdvReac Type Severity Reaction Status Date / Time No Known Allergies Allergy Verified 12/07/24 19:39 Social History Smoking Status: Current every day smoker tobacco type: cigarettes and e-cigarettes substance use type: does not use ROS ROS ED ROS Narrative Constitutional: Minus chills denies any fevers or dizziness Eyes: Denies change in vision double vision blurry vision Cardiovascular: Denies chest pain or palpitations Respiratory: Complains of cough denies shortness of breath Abdomen: Denies abdominal pain nausea vomit diarrhea : Denies urinary symptoms Neurological: Denies numbness, weakness, tingling Skin: Denies rashes or lesions EXAM Physical Exam Narrative Exam Narrative: General: Patient was lying in bed rest comfortably did not appear to be acute distress playing on her phone Head: Atraumatic, normocephalic Eyes ears, nose, throat: Patient has poor dentition noted, her bottom left lower tooth is where her pain is that she states there is no concern for abscess/periapical abscess at this point in time, no sublingual swelling Neck: No concern for Rad's angina, soft, supple, trachea midline Cardiovascular: Regular rate and rhythm no murmurs gallops rubs noted Respiratory: Clear to auscultation bilaterally Neurological: Patient following commands knew that she was at [facility] year is 2024 Skin: Warm, dry, intact no rashes or lesions noted Const Vital Signs: 12/07/24 19:36 12/07/24 20:37 12/07/24 23:04 Temperature 98.3 F 98.1 F Temperature Source Oral Pulse Rate 100 78 Respiratory Rate 18 14 Respiratory Effort Normal Non-Labored Respiratory Pattern Normal Blood Pressure 112/83 H 106/67 Blood Pressure Mean 92 80 Pulse Ox 100 99 Oxygen Delivery Method Room Air MDM MDM MDM Narrative Medical decision making narrative: Patient is a 29-year-old female who presented to the emergency department with a chief complaint of upper respiratory infection and dental pain. On the differential diagnose includes Melamin to COVID, flu, other upper respiratory infection secondary viral etiology, dental pain, abscess, dental caries. Once workup is obtained reviewed she will be reevaluated. Patient be given a gram of Tylenol and her first dose of clindamycin here in the emergency department. Patient's chest x-ray was reviewed showed no acute cardiopulmonary processes. Patient's COVID flu and RSV were negative. On reevaluation patient she is feeling better she like to go home at this point in time. Patient be given prescription for clindamycin should be given dental referral as she is advised that she needs to follow-up with a dentist in outpatient setting. She was encouraged to return with worsening symptoms or other concerns. She is agreeable this plan all questions turns answered she was discharged home in stable condition. Patient is requesting work note which she was provided. Radiography Diagnostic Testing: Clinical Impression(s) from Imaging Studies Chest X-Ray 12/07/24 21:05 IMPRESSION: NO ACUTE FINDINGS. [facility] Discharge Plan Triage Chief Complaint: Cold Sx ED Provider: Theo Rey Dx/Rx/DC Orders Clinical Impression: Dental caries, Viral URI Prescriptions: New clindamycin HCl 300 mg capsule 300 mg PO TID 7 Days Qty: 21 0RF No Action NK Stand Alone Forms: ED Work / School Excuse Primary Care Provider: Care Physician,No Primary Referrals: Care Physician,No Primary [Primary Care Provider] - Oliva Obrien, TIME STUDY CLERK-C [[facility]] - Activity Restrictions/Additional Instructions: Take antibiotics as prescribed. You need to follow-up with a dentist for your teeth. Return with worsening symptoms or any concerns Print Language: Czech Disposition Disposition: Home, Self Care
--- NOTE | 2024-12-07 21:05 | RAD_ITS ---
PROCEDURE: CHEST PA AND LATERAL 12/07/2024 REASON FOR EXAM: COUGH TECHNIQUE: Frontal and lateral views of the chest. COMPARISON: None FINDINGS: Hardware: None Heart: The heart size is normal. Mediastinum: The mediastinal contour is unremarkable. Lungs: No focal consolidation. No pneumothorax. No pleural effusion. Bones: The bones are unremarkable. RAD/Chest PA and Lateral IMPRESSION: NO ACUTE FINDINGS. Reading Location: [facility]
[2024-12-07 23:04] VITALS: BP 106/67; PULSE 78; RESP 14; TEMP 36.7; O2SAT 99
== END 2024-12-07 23:22 | disposition home or self-care (01) ==
PROVIDERS: Emergency Provider Emergency Medicine; Visit Provider Emergency Medicine
DX: K02.9 Dental caries, unspecified (principal); J06.9 Acute upper respiratory infection, unspecified; F17.210 Nicotine dependence, cigarettes, uncomplicated; F17.290 Nicotine dependence, other tobacco product, uncomplicated
CPT/HCPCS: 71046; 87631; 99283